=== PATIENT | male | born 1945 | race Caucasian/White ===

== ENCOUNTER → 2016-05-03 | Outpatient (CLI) | payer MEDICARE ==
[2016-04-24 08:58] VITALS: BP 147/77
[~2016-05-03] MED LIST: CYAN500T PO; GLIM2TAB2 PO; HYDR12.53 PO; METF500T4 PO; MULT-404 PO; levothyroxine PO; lisinopril PO; omeprazole PO
== END | disposition home or self-care (01) ==
LOC: PMGWOUND 07:49
PROVIDERS: ATTEND Emergency Medicine Undersea and Hyperbaric Medicine
DX: I87.311 Chronic venous hypertension (idiopathic) with ulcer of right lower extremity (principal); E11.622 Type 2 diabetes mellitus with other skin ulcer; L97.111 Non-pressure chronic ulcer of right thigh limited to breakdown of skin; L97.212 Non-pressure chronic ulcer of right calf with fat layer exposed; E03.9 Hypothyroidism, unspecified; Z87.891 Personal history of nicotine dependence
CPT/HCPCS: 15271; Q4101

== ENCOUNTER → 2016-05-08 | Outpatient (CLI) | payer MEDICARE ==
[2016-04-24 08:58] VITALS: BP 147/77
== END | disposition home or self-care (01) ==
LOC: PMGWOUND 07:57
PROVIDERS: ATTEND Emergency Medicine Undersea and Hyperbaric Medicine
DX: I87.311 Chronic venous hypertension (idiopathic) with ulcer of right lower extremity (principal); E11.622 Type 2 diabetes mellitus with other skin ulcer; L97.211 Non-pressure chronic ulcer of right calf limited to breakdown of skin; E03.9 Hypothyroidism, unspecified; Z87.891 Personal history of nicotine dependence
CPT/HCPCS: 11042

== ENCOUNTER → 2016-05-15 | Outpatient (CLI) | payer MEDICARE ==
[2016-04-24 08:58] VITALS: BP 147/77
== END | disposition home or self-care (01) ==
LOC: PMGWOUND 07:59
PROVIDERS: ATTEND Emergency Medicine Undersea and Hyperbaric Medicine
DX: I87.311 Chronic venous hypertension (idiopathic) with ulcer of right lower extremity (principal); E11.622 Type 2 diabetes mellitus with other skin ulcer; L97.212 Non-pressure chronic ulcer of right calf with fat layer exposed; E03.9 Hypothyroidism, unspecified; Z87.891 Personal history of nicotine dependence
CPT/HCPCS: 15271; Q4101

== ENCOUNTER → 2016-05-22 | Outpatient (CLI) | payer MEDICARE ==
[2016-04-24 08:58] VITALS: BP 147/77
== END | disposition home or self-care (01) ==
LOC: PMGWOUND 07:50
PROVIDERS: ATTEND Emergency Medicine Undersea and Hyperbaric Medicine
DX: I87.311 Chronic venous hypertension (idiopathic) with ulcer of right lower extremity (principal); E11.622 Type 2 diabetes mellitus with other skin ulcer; L97.212 Non-pressure chronic ulcer of right calf with fat layer exposed; I11.9 Hypertensive heart disease without heart failure; E03.9 Hypothyroidism, unspecified; Z87.891 Personal history of nicotine dependence
CPT/HCPCS: 97597

== ENCOUNTER → 2016-05-29 | Outpatient (CLI) | payer MEDICARE ==
[2016-04-24 08:58] VITALS: BP 147/77
== END | disposition home or self-care (01) ==
LOC: PMGWOUND 07:57
PROVIDERS: ATTEND Emergency Medicine Undersea and Hyperbaric Medicine
DX: I87.311 Chronic venous hypertension (idiopathic) with ulcer of right lower extremity (principal); E11.622 Type 2 diabetes mellitus with other skin ulcer; L97.212 Non-pressure chronic ulcer of right calf with fat layer exposed; Z87.891 Personal history of nicotine dependence; I11.9 Hypertensive heart disease without heart failure; E03.9 Hypothyroidism, unspecified
CPT/HCPCS: 11042

== ENCOUNTER → 2016-05-30 | Outpatient (CLI) | payer MEDICARE ==
[2016-04-24 08:58] VITALS: BP 147/77
--- NOTE | 2016-05-30 16:25 | RAD ---
Right lower extremity arterial ultrasound, 05/30/2016: History: Nonhealing right leg wound There are mild scattered atherosclerotic plaques. The common femoral, superficial femoral and popliteal arteries demonstrate good triphasic Doppler waveforms. No significant focal velocity acceleration is seen in these vessels to suggest high-grade stenosis. Patent peroneal and anterior tibial arteries are present in the right lower leg demonstrating triphasic Doppler waveforms. The posterior tibial Doppler waveforms in the lower leg are monophasic. The right dorsalis pedis artery demonstrates a good triphasic Doppler waveform. A resting right FAMILIA measurement was performed performed, yielding a normal value of 1.3. IMPRESSION: 1. Mild scattered atherosclerotic plaquing with out evidence of significant femoral-popliteal stenosis. 2. Minimal degradation of the posterior tibial Doppler waveforms in the right lower leg. 3. Normal right resting FAMILIA measurement of 1.3.
== END | disposition home or self-care (01) ==
LOC: US 15:29
PROVIDERS: ATTEND Emergency Medicine Undersea and Hyperbaric Medicine
DX: S81.801A Unspecified open wound, right lower leg, initial encounter (principal); I70.201 Unspecified atherosclerosis of native arteries of extremities, right leg
CPT/HCPCS: 93922; 93926

== ENCOUNTER → 2016-06-05 | Outpatient (CLI) | payer MEDICARE ==
[2016-04-24 08:58] VITALS: BP 147/77
--- NOTE | 2016-06-06 13:41 | PATHOLOGY ---
PATHOLOGY REPORT * * * * * * * * FINAL DIAGNOSIS: Skin, right lower anterior leg shave biopsy: - Ulcer consistent with stasis ulcer. COMMENT: Sections of the right lower anterior leg shave biopsy reveal skin showing ulceration. The base of the ulcer shows granulation tissue, mild acute and chronic inflammation, and hemosiderin laden macrophages. The overlying epidermis is focally thin and atrophic. The findings are consistent with a stasis ulcer. There is no evidence of malignancy. (JPM:mgopal; d/t: 06/06/16) REPORT ELECTRONICALLY SIGNED BY: Mendez Chambers M.D. DATE/TIME: 06/06/2016 13:41 * * * * * * * * GROSS PATHOLOGY: Received in formalin labeled "Andrew Arellano," and additionally labeled on the requisition as, "R lower anterior leg wound". Received is a shave biopsy measuring 0.9 x 0.7 x 0.1 cm in greatest dimensions. The epidermal surface is red-brown and granular in appearance. The margin is inked, and the specimen is trisected and entirely submitted in cassette A1. (CAA; 06/05/2016) INITIAL CPT CODE(S): A; 00231 Professional services [place] [address] Technical services performed by [facility] at [address] [place] [address] [address] [address]. 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
== END | disposition home or self-care (01) ==
LOC: PMGWOUND 07:59
PROVIDERS: ATTEND Emergency Medicine Undersea and Hyperbaric Medicine
DX: I87.311 Chronic venous hypertension (idiopathic) with ulcer of right lower extremity (principal); E11.622 Type 2 diabetes mellitus with other skin ulcer; L97.212 Non-pressure chronic ulcer of right calf with fat layer exposed; I11.9 Hypertensive heart disease without heart failure; E03.9 Hypothyroidism, unspecified; Z87.891 Personal history of nicotine dependence
CPT/HCPCS: 11100

== ENCOUNTER → 2016-06-12 | Outpatient (CLI) | payer MEDICARE ==
[2016-04-24 08:58] VITALS: BP 147/77
== END | disposition home or self-care (01) ==
LOC: PMGWOUND 08:09
PROVIDERS: ATTEND Emergency Medicine Undersea and Hyperbaric Medicine
DX: I87.311 Chronic venous hypertension (idiopathic) with ulcer of right lower extremity (principal); E11.622 Type 2 diabetes mellitus with other skin ulcer; L97.212 Non-pressure chronic ulcer of right calf with fat layer exposed; I11.9 Hypertensive heart disease without heart failure; E03.9 Hypothyroidism, unspecified; Z87.891 Personal history of nicotine dependence
CPT/HCPCS: 87071; 87075; 87205; 99214

== ENCOUNTER → 2016-06-19 | Outpatient (CLI) | payer MEDICARE ==
[2016-04-24 08:58] VITALS: BP 147/77
== END | disposition home or self-care (01) ==
LOC: PMGWOUND 08:05
PROVIDERS: ATTEND Emergency Medicine Undersea and Hyperbaric Medicine
DX: I87.311 Chronic venous hypertension (idiopathic) with ulcer of right lower extremity (principal); E11.622 Type 2 diabetes mellitus with other skin ulcer; L97.211 Non-pressure chronic ulcer of right calf limited to breakdown of skin; E03.9 Hypothyroidism, unspecified; I11.0 Hypertensive heart disease with heart failure; I50.9 Heart failure, unspecified; Z87.891 Personal history of nicotine dependence; Z72.0 Tobacco use
CPT/HCPCS: 29581

== ENCOUNTER → 2016-06-22 | Outpatient (CLI) | payer MEDICARE ==
[2016-04-24 08:58] VITALS: BP 147/77
== END | disposition home or self-care (01) ==
LOC: PMGWOUND 11:42
PROVIDERS: ATTEND Preventive Medicine Undersea and Hyperbaric Medicine
DX: I87.311 Chronic venous hypertension (idiopathic) with ulcer of right lower extremity (principal); E11.622 Type 2 diabetes mellitus with other skin ulcer; L97.211 Non-pressure chronic ulcer of right calf limited to breakdown of skin; E03.9 Hypothyroidism, unspecified; I50.9 Heart failure, unspecified; I11.0 Hypertensive heart disease with heart failure; Z87.891 Personal history of nicotine dependence; Z72.0 Tobacco use
CPT/HCPCS: 29581

== ENCOUNTER → 2016-06-28 | Outpatient (CLI) | payer MEDICARE ==
[2016-04-24 08:58] VITALS: BP 147/77
== END | disposition home or self-care (01) ==
LOC: PMGWOUND 10:01
PROVIDERS: ATTEND Emergency Medicine Undersea and Hyperbaric Medicine
DX: I87.311 Chronic venous hypertension (idiopathic) with ulcer of right lower extremity (principal); L97.212 Non-pressure chronic ulcer of right calf with fat layer exposed; E11.622 Type 2 diabetes mellitus with other skin ulcer; E03.9 Hypothyroidism, unspecified; I11.0 Hypertensive heart disease with heart failure; I50.9 Heart failure, unspecified; Z87.891 Personal history of nicotine dependence
CPT/HCPCS: 99214

== ENCOUNTER → 2016-07-05 | Outpatient (CLI) | payer MEDICARE ==
[2016-04-24 08:58] VITALS: BP 147/77
== END | disposition home or self-care (01) ==
LOC: PMGWOUND 09:37
PROVIDERS: ATTEND Emergency Medicine Undersea and Hyperbaric Medicine
DX: I87.311 Chronic venous hypertension (idiopathic) with ulcer of right lower extremity (principal); E11.622 Type 2 diabetes mellitus with other skin ulcer; L97.212 Non-pressure chronic ulcer of right calf with fat layer exposed; S51.812D Laceration without foreign body of left forearm, subsequent encounter; I11.0 Hypertensive heart disease with heart failure; I50.9 Heart failure, unspecified; E03.9 Hypothyroidism, unspecified; Z87.891 Personal history of nicotine dependence; X58.XXXD Exposure to other specified factors, subsequent encounter
CPT/HCPCS: 97597

== ENCOUNTER → 2016-07-19 | Outpatient (CLI) | payer MEDICARE ==
[2016-04-24 08:58] VITALS: BP 147/77
== END | disposition home or self-care (01) ==
LOC: PMGWOUND 08:27
PROVIDERS: ATTEND Emergency Medicine Undersea and Hyperbaric Medicine
DX: I87.311 Chronic venous hypertension (idiopathic) with ulcer of right lower extremity (principal); E11.622 Type 2 diabetes mellitus with other skin ulcer; L97.212 Non-pressure chronic ulcer of right calf with fat layer exposed; S51.812D Laceration without foreign body of left forearm, subsequent encounter; I11.0 Hypertensive heart disease with heart failure; I50.9 Heart failure, unspecified; E03.9 Hypothyroidism, unspecified; Z87.891 Personal history of nicotine dependence; X58.XXXD Exposure to other specified factors, subsequent encounter
CPT/HCPCS: 97597

== ENCOUNTER → 2016-08-02 | Outpatient (CLI) | payer MEDICARE ==
[2016-04-24 08:58] VITALS: BP 147/77
== END | disposition home or self-care (01) ==
LOC: PMGWOUND 08:08
PROVIDERS: ATTEND Emergency Medicine Undersea and Hyperbaric Medicine
DX: I87.311 Chronic venous hypertension (idiopathic) with ulcer of right lower extremity (principal); E11.622 Type 2 diabetes mellitus with other skin ulcer; L97.212 Non-pressure chronic ulcer of right calf with fat layer exposed; I11.0 Hypertensive heart disease with heart failure; I50.9 Heart failure, unspecified; E03.9 Hypothyroidism, unspecified; Z87.891 Personal history of nicotine dependence
CPT/HCPCS: 99215

== ENCOUNTER → 2016-08-16 | Outpatient (CLI) | payer MEDICARE ==
[2016-04-24 08:58] VITALS: BP 147/77
== END | disposition home or self-care (01) ==
LOC: PMGWOUND 08:29
PROVIDERS: ATTEND Emergency Medicine Undersea and Hyperbaric Medicine
DX: I87.311 Chronic venous hypertension (idiopathic) with ulcer of right lower extremity (principal); E11.622 Type 2 diabetes mellitus with other skin ulcer; L97.212 Non-pressure chronic ulcer of right calf with fat layer exposed; E03.9 Hypothyroidism, unspecified; I11.0 Hypertensive heart disease with heart failure; I50.9 Heart failure, unspecified; Z87.891 Personal history of nicotine dependence
CPT/HCPCS: 99214

== ENCOUNTER → 2016-08-30 | Outpatient (CLI) | payer MEDICARE ==
[2016-04-24 08:58] VITALS: BP 147/77
== END | disposition home or self-care (01) ==
LOC: PMGWOUND 08:37
PROVIDERS: ATTEND Emergency Medicine Undersea and Hyperbaric Medicine
DX: I87.311 Chronic venous hypertension (idiopathic) with ulcer of right lower extremity (principal); E11.622 Type 2 diabetes mellitus with other skin ulcer; L97.212 Non-pressure chronic ulcer of right calf with fat layer exposed; E03.9 Hypothyroidism, unspecified; I11.0 Hypertensive heart disease with heart failure; I50.9 Heart failure, unspecified; Z87.891 Personal history of nicotine dependence
CPT/HCPCS: 99213

== ENCOUNTER → 2017-05-09 | Outpatient (CLI) | payer MEDICARE | END | disposition home or self-care (01) | LOC: PMGWOUND 11:57 | DX: I87.311 Chronic venous hypertension (idiopathic) with ulcer of right lower extremity (principal); E11.622 Type 2 diabetes mellitus with other skin ulcer; L97.211 Non-pressure chronic ulcer of right calf limited to breakdown of skin; E03.9 Hypothyroidism, unspecified; I11.0 Hypertensive heart disease with heart failure; I50.9 Heart failure, unspecified; Z87.891 Personal history of nicotine dependence | CPT/HCPCS: 99215 ==

== ENCOUNTER → 2017-05-16 | Outpatient (CLI) | payer MEDICARE | END | disposition home or self-care (01) | LOC: PMGWOUND 08:27 | DX: I87.311 Chronic venous hypertension (idiopathic) with ulcer of right lower extremity (principal); E11.622 Type 2 diabetes mellitus with other skin ulcer; L97.211 Non-pressure chronic ulcer of right calf limited to breakdown of skin; E03.9 Hypothyroidism, unspecified; I11.0 Hypertensive heart disease with heart failure; I50.9 Heart failure, unspecified; Z87.891 Personal history of nicotine dependence | CPT/HCPCS: 99214 ==

== ENCOUNTER → 2017-05-23 | Outpatient (CLI) | payer MEDICARE | END | disposition home or self-care (01) | LOC: PMGWOUND 13:27 | DX: I87.311 Chronic venous hypertension (idiopathic) with ulcer of right lower extremity (principal); E11.622 Type 2 diabetes mellitus with other skin ulcer; L97.211 Non-pressure chronic ulcer of right calf limited to breakdown of skin; E03.9 Hypothyroidism, unspecified; I11.0 Hypertensive heart disease with heart failure; I50.9 Heart failure, unspecified; Z87.891 Personal history of nicotine dependence | CPT/HCPCS: 11042 ==

== ENCOUNTER → 2017-05-30 | Outpatient (CLI) | payer MEDICARE | END | disposition home or self-care (01) | LOC: PMGWOUND 11:10 | DX: I87.311 Chronic venous hypertension (idiopathic) with ulcer of right lower extremity (principal); E11.622 Type 2 diabetes mellitus with other skin ulcer; L97.211 Non-pressure chronic ulcer of right calf limited to breakdown of skin; E03.9 Hypothyroidism, unspecified; I11.0 Hypertensive heart disease with heart failure; I50.9 Heart failure, unspecified; Z87.891 Personal history of nicotine dependence | CPT/HCPCS: 97597 ==

== ENCOUNTER → 2017-06-06 | Outpatient (CLI) | payer MEDICARE | END | disposition home or self-care (01) | LOC: PMGWOUND 11:43 | DX: I87.311 Chronic venous hypertension (idiopathic) with ulcer of right lower extremity (principal); E11.622 Type 2 diabetes mellitus with other skin ulcer; L97.211 Non-pressure chronic ulcer of right calf limited to breakdown of skin; E03.9 Hypothyroidism, unspecified; I11.0 Hypertensive heart disease with heart failure; I50.9 Heart failure, unspecified; Z87.891 Personal history of nicotine dependence | CPT/HCPCS: 97597 ==

== ENCOUNTER → 2017-06-13 | Outpatient (CLI) | payer MEDICARE | END | disposition home or self-care (01) | LOC: PMGWOUND 09:25 | DX: I87.311 Chronic venous hypertension (idiopathic) with ulcer of right lower extremity (principal); E11.622 Type 2 diabetes mellitus with other skin ulcer; L97.211 Non-pressure chronic ulcer of right calf limited to breakdown of skin; E03.9 Hypothyroidism, unspecified; I11.0 Hypertensive heart disease with heart failure; I50.9 Heart failure, unspecified; Z87.891 Personal history of nicotine dependence | CPT/HCPCS: 97597 ==

== ENCOUNTER → 2017-06-20 | Outpatient (CLI) | payer MEDICARE | END | disposition home or self-care (01) | LOC: PMGWNDHBO 13:24 | DX: I87.311 Chronic venous hypertension (idiopathic) with ulcer of right lower extremity (principal); L97.212 Non-pressure chronic ulcer of right calf with fat layer exposed; I11.0 Hypertensive heart disease with heart failure; I50.9 Heart failure, unspecified; E03.9 Hypothyroidism, unspecified; Z87.891 Personal history of nicotine dependence | CPT/HCPCS: 97597 ==

== ENCOUNTER → 2017-06-27 | Outpatient (CLI) | payer MEDICARE | END | disposition home or self-care (01) | LOC: PMGWOUND 08:04 | DX: I87.311 Chronic venous hypertension (idiopathic) with ulcer of right lower extremity (principal); E11.622 Type 2 diabetes mellitus with other skin ulcer; L97.211 Non-pressure chronic ulcer of right calf limited to breakdown of skin; E03.9 Hypothyroidism, unspecified; I11.0 Hypertensive heart disease with heart failure; I50.9 Heart failure, unspecified; Z87.891 Personal history of nicotine dependence | CPT/HCPCS: 15271; 97597; Q4101 ==

== ENCOUNTER → 2017-07-04 | Outpatient (CLI) | payer MEDICARE | END | disposition home or self-care (01) | LOC: PMGWOUND 07:55 | DX: I87.311 Chronic venous hypertension (idiopathic) with ulcer of right lower extremity (principal); E11.622 Type 2 diabetes mellitus with other skin ulcer; L97.211 Non-pressure chronic ulcer of right calf limited to breakdown of skin; E03.9 Hypothyroidism, unspecified; I11.0 Hypertensive heart disease with heart failure; I50.9 Heart failure, unspecified; Z87.891 Personal history of nicotine dependence | CPT/HCPCS: 97597 ==

== ENCOUNTER → 2017-07-11 | Outpatient (CLI) | payer MEDICARE | END | disposition home or self-care (01) | LOC: PMGWOUND 08:05 | DX: I87.311 Chronic venous hypertension (idiopathic) with ulcer of right lower extremity (principal); L97.211 Non-pressure chronic ulcer of right calf limited to breakdown of skin; E11.622 Type 2 diabetes mellitus with other skin ulcer; I11.0 Hypertensive heart disease with heart failure; I50.9 Heart failure, unspecified; E03.9 Hypothyroidism, unspecified; Z87.891 Personal history of nicotine dependence | CPT/HCPCS: 99214 ==

== ENCOUNTER → 2017-07-25 | Outpatient (CLI) | payer MEDICARE | END | disposition home or self-care (01) | LOC: PMGWOUND 08:05 | DX: I87.311 Chronic venous hypertension (idiopathic) with ulcer of right lower extremity (principal); E11.622 Type 2 diabetes mellitus with other skin ulcer; L97.211 Non-pressure chronic ulcer of right calf limited to breakdown of skin; I11.0 Hypertensive heart disease with heart failure; I50.9 Heart failure, unspecified; E03.9 Hypothyroidism, unspecified; Z87.891 Personal history of nicotine dependence | CPT/HCPCS: 99214 ==

== ENCOUNTER → 2017-08-08 | Outpatient (CLI) | payer MEDICARE | END | disposition home or self-care (01) | LOC: PMGWOUND 08:06 | DX: I87.311 Chronic venous hypertension (idiopathic) with ulcer of right lower extremity (principal); E11.622 Type 2 diabetes mellitus with other skin ulcer; L97.211 Non-pressure chronic ulcer of right calf limited to breakdown of skin; I11.0 Hypertensive heart disease with heart failure; I50.9 Heart failure, unspecified; E03.9 Hypothyroidism, unspecified; Z87.891 Personal history of nicotine dependence | CPT/HCPCS: 99214 ==

== ENCOUNTER → 2017-08-29 | Outpatient (CLI) | payer MEDICARE | END | disposition home or self-care (01) | LOC: PMGWOUND 08:11 | DX: I87.311 Chronic venous hypertension (idiopathic) with ulcer of right lower extremity (principal); E11.622 Type 2 diabetes mellitus with other skin ulcer; L97.211 Non-pressure chronic ulcer of right calf limited to breakdown of skin; I11.0 Hypertensive heart disease with heart failure; I50.9 Heart failure, unspecified; E03.9 Hypothyroidism, unspecified; Z87.891 Personal history of nicotine dependence | CPT/HCPCS: 99214 ==

== ENCOUNTER → 2017-09-13 | Outpatient (CLI) | payer MEDICARE | END | disposition home or self-care (01) | LOC: PMGWOUND 07:56 | DX: I87.311 Chronic venous hypertension (idiopathic) with ulcer of right lower extremity (principal); E11.622 Type 2 diabetes mellitus with other skin ulcer; L97.211 Non-pressure chronic ulcer of right calf limited to breakdown of skin; I11.0 Hypertensive heart disease with heart failure; I50.9 Heart failure, unspecified; E03.9 Hypothyroidism, unspecified; Z87.891 Personal history of nicotine dependence | CPT/HCPCS: 97597 ==

== ENCOUNTER → 2017-09-26 | Outpatient (CLI) | payer MEDICARE ==
[2016-04-24 08:58] VITALS: BP 147/77
[~2017-09-26] MED LIST changes: -METF500T4 PO; +METF500T5 PO
== END | disposition home or self-care (01) ==
LOC: PMGWOUND 08:04
PROVIDERS: ATTEND Emergency Medicine Undersea and Hyperbaric Medicine
DX: I87.311 Chronic venous hypertension (idiopathic) with ulcer of right lower extremity (principal); E11.622 Type 2 diabetes mellitus with other skin ulcer; L97.211 Non-pressure chronic ulcer of right calf limited to breakdown of skin; I11.0 Hypertensive heart disease with heart failure; I50.9 Heart failure, unspecified; E03.9 Hypothyroidism, unspecified; Z87.891 Personal history of nicotine dependence
CPT/HCPCS: 99214; G0463

== ENCOUNTER 2017-10-11 19:29 | Emergency (ER) | payer MEDICARE ==
[~2017-10-11] VITALS: Ht 180.3 cm; Wt 77.1 kg
[2017-10-11 19:40] VITALS: BP 166/79
--- NOTE | 2017-10-11 20:07 | PHYS DOC ---
Past Medical History Past Medical History: Diabetes-Type II, GERD, Hypertension, Hypothyroid, Pancreatitis Past Surgical History: Other Additional Past Surgical Histo: abdominal sx for pancreatitis, abd hernia repair Alcohol Use: None Drug Use: None Adult General Chief Complaint Chief Complaint: KNEE INJURY HPI HPI 72-year-old male presents to ER via POV with complaints of mechanical fall when he missed the last step walking out of his house causing him to fall forward onto his left knee. Patient reports he has abrasion to left knee and has had increased pain when walking. Patient denies striking his head or having any head , neck, or back pain. Pt reports he was walking into the house and went into the bathroom when his left knee buckled causing him to fall into the window frame which caused a left forearm skin tear. Pt is uncertain of last tetanus update. Pt at rest has no pain in left knee- he reports pain is when he walks. 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 Review of Systems Review of Systems Constitutional: Denies fever or chills [] Eyes: Denies change in visual acuity, redness, or eye pain [] HENT: Denies nasal congestion or sore throat [] Respiratory: Denies cough or shortness of breath [] Cardiovascular: No additional information not addressed in HPI [] GI: Denies abdominal pain, nausea, vomiting, bloody stools or diarrhea [] : Denies dysuria or hematuria [] Musculoskeletal: Denies back pain or joint pain [] Integument: Denies rash or skin lesions [] Neurologic: Denies headache, focal weakness or sensory changes [] Endocrine: Denies polyuria or polydipsia [] All other systems were reviewed and found to be within normal limits, except as documented in this note. Current Medications Current Medications Current Medications Medications (Trade) Dose Ordered Sig/Nicole Start Time Stop Time Status Last Admin Dose Admin Ibuprofen (Motrin) 600 mg 1X ONCE 10/11/17 20:15 10/11/17 20:16 DC 10/11/17 20:46 600 MG Allergies Allergies Allergies Coded Allergies Type Severity Reaction Last Updated Verified No Known Drug Allergies 12/02/13 No Physical Exam Physical Exam Constitutional: Well developed, well nourished, no acute distress, non-toxic appearance. [] HENT: Normocephalic, atraumatic, bilateral external ears normal, oropharynx moist, no oral exudates, nose normal. [] Eyes: PERRLA, EOMI, conjunctiva normal, no discharge. [] Neck: Normal range of motion, no tenderness, supple, no stridor. [] Cardiovascular:Heart rate regular rhythm, no murmur [] Lungs & Thorax: Bilateral breath sounds clear to auscultation [] Abdomen: Bowel sounds normal, soft, no tenderness, no masses, no pulsatile masses. [] Skin: Warm, dry, no erythema, no rash. [] Back: No tenderness, no CVA tenderness. [] Extremities: No tenderness, no cyanosis, no clubbing, ROM intact, no edema. [] Neurologic: Alert and oriented X 3, normal motor function, normal sensory function, no focal deficits noted. [] Psychologic: Affect normal, judgement normal, mood normal. [] Current Patient Data Vital Signs Vital Signs Date Time Temp Pulse Resp B/P (MAP) Pulse Ox O2 Delivery O2 Flow Rate FiO2 10/11/17 19:40 99.1 76 16 166/79 (108) Room Air 99.1 EKG EKG [] Radiology/Procedures Radiology/Procedures [] Course & Med Decision Making Course & Med Decision Making Pertinent Imaging studies reviewed. (See chart for details) 2106: Discussed xray results with pt and his with no acute findings. Discussed plans for juan c wrap and use of walker at home for stability. Pt to f/u with his orthopedic doctor for further eval/care if pain/sxs persist. Dragon Disclaimer Dragon Disclaimer This electronic medical record was generated, in whole or in part, using a voice recognition dictation system. Departure Departure Impression: Primary Impression: Left knee injury Additional Impressions: Skin tear of left upper extremity Fall Disposition: HOME, SELF-CARE Condition: STABLE Referrals: WERNER WANG MD (PCP) Patient Instructions: Abrasions, Fall Prevention and Home Safety, Knee Sprain, Skin Tear Care Additional Instructions: Use walker for stability while walking while your knee is hurting. Tylenol and/or ibuprofen as needed for pain as directed on container. Ice pack to knee every 3-4 hours for 20-30 min. at a time as needed. If symptoms worsen or persist you should follow-up with your orthopedic doctor for re-evaluation and further care. Monitor abrasion and skin tear for signs of infection- with concerns follow-up with your primary doctor. Problem Qualifiers SHARRON AGUSTIN APRN Oct 11, 2017 20:07
[2017-10-11] MEDS ORDERED: IBUPROFEN 600 MG TABLET. PO ONE (20:15)
--- NOTE | 2017-10-11 20:51 | RAD ---
Indication:FALL X1 DAY AGO. PAIN TO MEDIAL SIDE OF LEFT KNEE TECHNIQUE: 3 views of the left knee COMPARISON:None FINDINGS: No acute fracture or dislocation. Tricompartmental mild osteoarthritis. Trace suprapatellar effusion. Vascular calcifications suggesting peripheral vascular disease. IMPRESSION: No acute fracture or dislocation. Electronically signed by: Linwood Montoya DO (10/11/2017 8:47 PM) [facility]
== END 2017-10-11 21:34 | disposition home or self-care (01) ==
LOC: ER 19:29
DX: S51.812A Laceration without foreign body of left forearm, initial encounter (principal); S80.212A Abrasion, left knee, initial encounter; E11.9 Type 2 diabetes mellitus without complications; K21.9 Gastro-esophageal reflux disease without esophagitis; I10 Essential (primary) hypertension; E03.9 Hypothyroidism, unspecified; W10.8XXA Fall (on) (from) other stairs and steps, initial encounter; W18.02XA Striking against glass with subsequent fall, initial encounter; Y93.01 Activity, walking, marching and hiking; Y92.091 Bathroom in other non-institutional residence as the place of occurrence of the external cause; Y92.098 Other place in other non-institutional residence as the place of occurrence of the external cause; Y99.8 Other external cause status
CPT/HCPCS: 73562; 99284

== ENCOUNTER → 2018-10-06 | Outpatient (CLI) | payer MEDICARE ==
[~2018-10-06] MED LIST changes: -CYAN500T PO; +CYAN500T2 PO; -HYDR12.53 PO; +HYDR12.575 PO; +METF500T16 PO; -METF500T5 PO
--- NOTE | 2018-10-06 14:01 | CARD ---
MR#: [id number] Date of Study: 10/06/2018 Ordering Physician: WERNER WANG, Referring Physician: WERNER WANG, Tech: Caroline Hernandez APPROVED REPORT EXAM: Two-dimensional and M-mode echocardiogram with Doppler and color Doppler. Other Information Quality : AverageHR: 84bpm INDICATION Atrial Fibrillation RISK FACTORS Hypertension Diabetes 2D DIMENSIONS RVDd3.1 (2.9-3.5cm)Left Atrium(2D)4.2 (1.6-4.0cm) IVSd0.9 (0.7-1.1cm)Aortic Root(2D)3.7 (2.0-3.7cm) LVDd5.7 (3.9-5.9cm)LVOT Diameter2.2 (1.8-2.4cm) PWd1.1 (0.7-1.1cm)LVDs3.5 (2.5-4.0cm) FS (%) 37.8 %SV106.9 ml Aortic Valve AoV Peak Pablo.102.3cm/sAoV VTI18.1cm AO Peak GR.4.2mmHgLVOT Peak Pablo.69.2cm/s LVOT VTI 13.78cmAO Mean GR.2mmHg AMANDA (VMAX)1.45tn3TTL (VTI)2.81cm2 Mitral Valve MV E Twnuowsr95.7cm/sMV DECEL NXWA644ce MV A Shtpolln31.4cm/sMV KLR22fl E/A Ratio3.2MVA (PHT)4.14cm2 TDI E/Lateral E'9.0E/Medial E'9.0 Pulmonary Valve PV Peak Qtwztbge00.7cm/sPV Peak Grad.2mmHg Tricuspid Valve TR P. Lrxohsku162ot/sRAP PUWHPRBI4zwTf TR Peak Gr.19wyOsAIPW40lsWf Pulmonary Vein S1 Ayqlawtu73.2cm/sD2 Iitnfcpl44.3cm/s LEFT VENTRICLE The left ventricle is normal size. There is borderline concentric left ventricular hypertrophy. The l eft ventricular systolic function is normal and the ejection fraction is within normal range. The Eje ction Fraction is 55-60%. There is normal LV segmental wall motion. Diastology indeterminate due to a trial fibrillation. RIGHT VENTRICLE The right ventricle is normal size. There is normal right ventricular wall thickness. The right ventr icular systolic function is normal. ATRIA The left atrium is mildly dilated. The right atrium size is normal. The interatrial septum is intact with no evidence for an atrial septal defect or patent foramen ovale as noted on 2-D or Doppler imagi ng. AORTIC VALVE The aortic valve is thickened but opens well. Doppler and Color Flow revealed no significant aortic r egurgitation. There is no significant aortic valvular stenosis. MITRAL VALVE The mitral valve is normal in structure and function. There is no evidence of mitral valve prolapse. There is no mitral valve stenosis. Doppler and Color-flow revealed mild mitral regurgitation. TRICUSPID VALVE The tricuspid valve is normal in structure and function. Doppler and Color Flow revealed mild tricusp id regurgitation with an estimated PAP of 42 mmHg. There is no tricuspid valve prolapse or vegetation . There is no tricuspid valve stenosis. PULMONIC VALVE The pulmonic valve is not well visualized. Doppler and Color Flow revealed no pulmonic valvular regur gitation. GREAT VESSELS The aortic root is normal in size. The IVC is normal in size and collapses >50% with inspiration. PERICARDIAL EFFUSION There is no evidence of significant pericardial effusion. Critical Notification Critical Value: No <Conclusion> The left ventricle is normal size. The left ventricular systolic function is normal and the ejection fraction is within normal range. The Ejection Fraction is 55-60%. There is borderline concentric left ventricular hypertrophy. There is no significant aortic valvular stenosis. Doppler and Color Flow revealed no significant aortic regurgitation. Doppler and Color-flow revealed mild mitral regurgitation. Doppler and Color Flow revealed mild tricuspid regurgitation with an estimated PAP of 42 mmHg. Signed by : Rolo Jefferson MD Electronically Approved : 10/06/2018 14:00:25
== END | disposition home or self-care (01) ==
LOC: ECHO 12:45
PROVIDERS: ATTEND Family Medicine
DX: I08.1 Rheumatic disorders of both mitral and tricuspid valves (principal); I48.91 Unspecified atrial fibrillation; I10 Essential (primary) hypertension; E78.5 Hyperlipidemia, unspecified
CPT/HCPCS: 93306

== ENCOUNTER → 2018-12-08 | Outpatient (CLI) | payer MEDICARE ==
[~2018-12-08] MED LIST changes: +CELE200C PO; +CHOL10003 PO; -CYAN500T2 PO; +CYAN500T52 PO; +FERR325T14 PO; -GLIM2TAB2 PO; +GLIM2TAB3 PO; +LEVO125T5 PO; +LOSA-73 PO; +MELA3TAB56 PO; +OMEP40CA45 PO; +OXYC1TAB15 PO; +RIVA20TA2 PO
[2018-12-08 09:26] LABS: BASO % 1 % (0-3); EOS # 0.1 x10^3/uL (0.0-0.7); EOS % 2 % (0-3); HEMATOCRIT 37.5 % (39.0-53.0); LYMPH # 0.7 x10^3/uL (1.0-4.8); LYMPH % 19 % (24-48); MEAN CORPUSCULAR HEMOGLOBIN 37 pg (25-35); MEAN CORPUSCULAR HGB CONC 35 g/dL (31-37); MEAN CORPUSCULAR VOLUME 108 fL (79-100); MONO # 0.2 x10^3/uL (0.0-1.1); MONO % 6 % (0-9); NEUT # 2.7 x10^3/uL (1.8-7.7); NEUT % 73 % (31-73); PLATELET COUNT 163 x10^3/uL (140-400); RED BLOOD COUNT 3.48 x10^6/uL (4.30-5.70); RED CELL DISTRIBUTION WIDTH 14.3 % (11.5-14.5); WHITE BLOOD COUNT 3.7 x10^3/uL (4.0-11.0)
[2018-12-08 09:40] LABS: PROTHROMBIN TIME PATIENT 19.6 SEC (11.7-14.0)
[2018-12-08 09:43] LABS: CALCIUM 9.2 mg/dL (8.5-10.1); CREATININE 1.1 mg/dL (0.7-1.3); GFR 65.6; POTASSIUM 4.1 mmol/L (3.5-5.1)
[2018-12-08 11:05] LABS: BILIRUBIN,URINE NEGATIVE (NEG); CLARITY,URINE CLEAR; COLOR,URINE YELLOW; NITRITE,URINE NEGATIVE (NEG); PH,URINE 5.5; PROTEIN,URINE NEGATIVE (NEG-TRACE); UROBILINOGEN,URINE 0.2 mg/dL (0.2 mg/dL)
[2018-12-08 11:13] LABS: BACTERIA,URINE 0 /HPF (0-FEW); RBC,URINE 0 /HPF (0-2); WBC,URINE 0 /HPF (0-4)
--- NOTE | 2018-12-08 13:29 | RAD ---
AP and Lateral Views of the Chest 12/08/2018 8:55 AM Indication: Preoperative. Comparison: None Findings: There is no focal consolidation or infiltrate identified. The cardiomediastinal silhouette is within normal limits. There is no evidence of pneumothorax or pleural effusion. Degenerative changes of the thoracic spine noted. Probable diffuse the idiopathic skeletal hyperostosis noted. Impression: No evidence of acute cardiopulmonary process. Electronically signed by: Simon Becerra MD (12/08/2018 1:26 PM) [id number]
== END | disposition home or self-care (01) ==
LOC: SURGPAT 12:51
PROVIDERS: ATTEND Orthopaedic Surgery
DX: Z01.818 Encounter for other preprocedural examination (principal); M17.11 Unilateral primary osteoarthritis, right knee; I10 Essential (primary) hypertension
CPT/HCPCS: 36415; 71046; 80048; 81001; 82040; 82306; 83036; 85025; 85610; 85651; 85730; 87641

== ENCOUNTER → 2019-01-07 | Outpatient (CLI) | payer MEDICARE ==
[2019-01-01 12:45] VITALS: BP 112/60
[~2019-01-07] MED LIST changes: +METO25TA4 PO
[2019-01-07 13:04] LABS: BASO % 0 % (0-3); EOS % 1 % (0-3); HEMATOCRIT 21.6 % (39.0-53.0); HEMOGLOBIN 7.4 g/dL (13.0-17.5); LYMPH # 0.6 x10^3/uL (1.0-4.8); LYMPH % 17 % (24-48); MEAN CORPUSCULAR HEMOGLOBIN 37 pg (25-35); MEAN CORPUSCULAR HGB CONC 34 g/dL (31-37); MEAN CORPUSCULAR VOLUME 108 fL (79-100); MONO # 0.3 x10^3/uL (0.0-1.1); MONO % 10 % (0-9); NEUT # 2.4 x10^3/uL (1.8-7.7); NEUT % 72 % (31-73); PLATELET COUNT 169 x10^3/uL (140-400); RED BLOOD COUNT 2.01 x10^6/uL (4.30-5.70); RED CELL DISTRIBUTION WIDTH 14.4 % (11.5-14.5); WHITE BLOOD COUNT 3.4 x10^3/uL (4.0-11.0)
[2019-01-07 13:28] LABS: CALCIUM 8.4 mg/dL (8.5-10.1); CREATININE 1.3 mg/dL (0.7-1.3); POTASSIUM 3.5 mmol/L (3.5-5.1)
== END | disposition home or self-care (01) ==
LOC: LAB 12:34
PROVIDERS: ATTEND Physician Assistant
DX: L03.115 Cellulitis of right lower limb (principal); L02.415 Cutaneous abscess of right lower limb; Z96.651 Presence of right artificial knee joint
CPT/HCPCS: 36415; 80048; 85025; 85651; 86141

== ENCOUNTER → 2019-01-12 | Outpatient (CLI) | payer MEDICARE ==
[2019-01-01 12:45] VITALS: BP 112/60
== END ==
LOC: PMGORTHO 08:07
PROVIDERS: ATTEND Orthopaedic Surgery

== ENCOUNTER 2019-01-20 13:21 | Inpatient (IN) | payer MEDICARE ==
[~2019-01-20] VITALS: Ht 172.7 cm; Wt 82.3 kg
[~2019-01-20 13:21] MED LIST changes: +ACETAMINOPHEN 500 MG TABLET PO PRN; +HYDROmorphone 2 MG/ML VIAL IV PRN; +IV RINGERS,LACTATED 1000ML 1,000 ML IV SCH; -METO25TA4 PO; +MORPHINE SULFATE 2 MG/ML VIAL. IV PRN; +MORPHINE SULFATE 5 MG, KETOROLAC 30MG VIAL 30 MG, ROPIVacaine 0.5% PF 60 ML, EPINEPHrin... INT ART ONE; +ONDANSETRON PF 4 MG/2 ML VIAL. IV PRN; +PROCHLORPERAZINE 10 MG/2 ML VIAL. IV PRN; +TRANEXAMIC ACID 1,000 MG in IV NS 50ML -- 1ST BAG INJ ONE; +TRANEXAMIC ACID 1,000 MG in IV NS 50ML -- 2ND BAG INJ ONE; +ceFAZolin 2GM PREMIX 2 GM/50 ML BAG IV ONE; +fentaNYL PF VIAL 100 MCG/2 ML VIAL IV PRN
[2019-01-20 14:50] LABS: BASO % 1 % (0-3); EOS % 1 % (0-3); HEMATOCRIT 23.4 % (39.0-53.0); HEMOGLOBIN 8.1 g/dL (13.0-17.5); LYMPH # 0.7 x10^3/uL (1.0-4.8); LYMPH % 22 % (24-48); MEAN CORPUSCULAR HEMOGLOBIN 37 pg (25-35); MEAN CORPUSCULAR HGB CONC 35 g/dL (31-37); MEAN CORPUSCULAR VOLUME 106 fL (79-100); MONO # 0.3 x10^3/uL (0.0-1.1); MONO % 10 % (0-9); NEUT # 2.1 x10^3/uL (1.8-7.7); NEUT % 65 % (31-73); PLATELET COUNT 262 x10^3/uL (140-400); RED BLOOD COUNT 2.21 x10^6/uL (4.30-5.70); RED CELL DISTRIBUTION WIDTH 16.4 % (11.5-14.5); WHITE BLOOD COUNT 3.3 x10^3/uL (4.0-11.0)
[2019-01-20] MEDS ORDERED: TOBRAMYCIN POWDER 1.2 GM VIAL. ONE (14:53)
[2019-01-20] MEDS ORDERED: VANCOMYCIN 1 GM VIAL. ONE (15:06)
[2019-01-20 15:23] LABS: CALCIUM 8.7 mg/dL (8.5-10.1); CREATININE 1.3 mg/dL (0.7-1.3); POTASSIUM 4.1 mmol/L (3.5-5.1)
[2019-01-20 15:25] LABS: ALBUMIN 2.8 g/dL (3.4-5.0); C-REACTIVE PROTEIN 19.2 mg/L (0-3.3)
[2019-01-20] MEDS ORDERED: INSULIN LISPRO 100 UNIT/ML 3ML VIAL for OP,RR ONLY. SQ PRN (16:30)
[2019-01-20 16:51] LABS: % BANDS 2 % (0-9); % EOS 1 % (0-5); % LYMPHS 21 % (24-48); % METAS 1 % (0-0); % MONOS 6 % (0-10); % SEGS 69 % (35-66); PLT ESTIMATE ADEQUATE (ADEQUATE)
[2019-01-20] MEDS ORDERED: fentaNYL PF VIAL 100 MCG/2 ML VIAL ONE (17:43)
[2019-01-20] MEDS ORDERED: PROPOFOL 20 ML IV ONE (17:43)
[2019-01-20] MEDS ORDERED: ROCURONIUM 50 MG/5 ML VIAL. ONE (17:43)
[2019-01-20] MEDS ORDERED: LIDOCAINE 2% PF 5 ML VIAL. ONE (17:43)
[2019-01-20] MEDS ORDERED: PHENYLEPHRINE in 0.9% NACL PF 1 MG/10 ML SYRINGE. IV ONE (17:51)
[2019-01-20] MEDS ORDERED: GLYCOPYRROLATE 1 MG/5 ML VIAL. ONE (18:43)
[2019-01-20] MEDS ORDERED: ONDANSETRON PF 4 MG/2 ML VIAL. ONE (18:43)
[2019-01-20] MEDS ORDERED: NEOSTIGMINE METHYLSULFATE 5 MG/5 ML SYRINGE. ONE (18:44)
[2019-01-20] MEDS ORDERED: SEVOFLURANE 61 TO 120 MINUTES. IH ONE (18:51)
[2019-01-20] MEDS ORDERED: SEVOFLURANE > 120 MINUTES. IH ONE (19:26)
--- NOTE | 2019-01-20 20:01 | PDOC4 ---
Operative Note Operative Note Date of Procedure: January 20, 2019 Pre-Op Diagnosis: right knee total knee arthroplasty with postoperative acute infection Post-Op Diagnosis: Same Procedure: Right knee irrigation and debridement, and revision of polyethylene (one component) of total knee arthroplasty Surgeon: Leena Cochran MD Fruit Or Nut Grower: Dai COPPOLA Anesthesia: General EBL: 100 mL Specimens Obtained: deep synovial fluid for Gram Stain and cultures including aerobic, anaerobic, fungal, and AFB Complications: none Drains: none Findings: Cloudy synovial fluid Tourniquet: applied but not inflated Implants: Right Size 5-6 9 mm Journey II BCS XLPE articular insert Indications for Procedure: The patient is a 74 year old man who had total knee arthroplasty three weeks ago today. He was seen in the office last week, and Synovasure testing was performed. I saw him in the office yesterday and review those results with him which showed white blood cell count greater than 3000, greater than 90% polymorphonuclear leukocytes, and the Alpha Defensin testing was positive. I suspect there is early postoperative infection of his total knee arthroplasty. We discussed his individual risk factors such as diabetes. The patient and I discussed the risks, benefits and alternatives of further surgery. I recommended irrigation and debridement with polyethylene exchange. We discussed potential need to proceed with complete excision of the total knee arthroplasty including the metal components in the future. Due to the recent onset of infection, the irrigation and debridement with polyethylene exchange, which is a lesser surgery, is likely to be effective and is the standard of care, but is not guaranteed as we discussed. The risks of this surgery include ongoing infection which might require excision of the total knee. Other risks include bleeding, scarring, stiffness, blood clots, or other potential surgical or anesthetic complications. Procedure in Detail: The patient was identified in the preoperative holding area. The correct right lower extremity was marked by me. The patient was taken to the operating room where general anesthesia was used. The patient was positioned supine on the operating table. The intravenous antibodies were held until a specimen was obtained. A timeout procedure was performed. A tourniquet was applied to the right thigh but never inflated. The limb was prepared in sterile fashion with Betadine. Sterile drapes were applied. An impervious stockinette was used. The operating team wore the personal exhaust ventilated hoods. The midline incision was reopened sharply with a scalpel. There is some minor fluid collection and superficial drainage at the superior aspect of the original incision, and I excised the edges of this area. The superficial tissue planes were carefully reflected, and I suspect the origin of the drainage is deep. I reopened the medial parapatellar arthrotomy sharply with a scalpel, cutting through the prior PDS suture, and noted cloudy synovial fluid. This fluid was sent in a specimen cup for the cultures. Antibiotics were now dosed. Copious irrigation with the [place] Interpulse safety net maker was used, and excisional debridement of abnormal synovium was performed with a scalpel, and rongeurs. The previous polyethylene component was removed with a Digna retractor. The posterior joint was examined. There was minimal synovitis here and a synovectomy was performed. The intercondylar notch of the femur was debrided with a rongeurs, curettes, and the [place] Interpulse safety net maker. All three of the remaining components were checked at the implantcementbone interface with a [place] elevator, and there is no evidence of loosening of the components or bone infection. Topical intra-articular Betadine was now used on all of the exposed surfaces within the joint, and then removed with suction, and irrigated with the [place] Interpulse safety net maker. 6 L of saline irrigation was used in total with the Interpulse safety net maker. He has developed a bit of a flexion contracture since surgery, and I used trial polyethylene components, and decided on a 9 mm insert rather than the 11 mm insert which had been removed. He still has good varus/valgus stability, but improved knee extension. Dai Monroe, my day care assistant now held the knee in the proper position for the placement of the new polyethylene implant. The final 9 mm polyethylene was secured to the tibial baseplate with the [employer] dedicated rubber printing machine operator, and now the knee was reduced. The [place] Interpulse safety net maker was used a final time. 1 g of powdered vancomycin was placed within the joint. The arthrotomy was repaired with #1 PDS sybkff-tn-odubp sutures. The subcutaneous tissues were closed with 2-0 PDS suture by me and my day care assistant. The skin was reapproximated with #2-0 nylon sutures by me and by my day care assistant. Ms. Monroe then applied the Acticoat AG and sterile EUFEMIA single use negative pressure wound therapy dressing. An ABD dressing, soft roll and Yuri wrap were also used. Needle and sponge counts were correct. There were no apparent complications. LEENA COCHRAN MD Jan 20, 2019 20:01
[2019-01-20] MEDS ORDERED: DEXTROSE 50% 25 GM / 50ML DISP.SYRIN. IV PRN (20:15)
[2019-01-20] MEDS ORDERED: MORPHINE SULFATE 2 MG/ML VIAL. IV PRN (20:15)
[2019-01-20] MEDS ORDERED: 0.9 % SODIUM CHLORIDE 10 ML DISP.SYRIN. IV PRN (20:15)
[2019-01-20] MEDS ORDERED: METOCLOPRAMIDE HCL 10 MG/2 ML VIAL. IV PRN (20:15)
[2019-01-20] MEDS ORDERED: fentaNYL PF VIAL 100 MCG/2 ML VIAL IV PRN ×2 (20:15)
[2019-01-20] MEDS ORDERED: PROCHLORPERAZINE 5 MG TABLET. PO PRN (20:15)
[2019-01-20] MEDS ORDERED: CALCIUM CARBONATE 500 MG TAB.CHEW PO PRN (20:15)
[2019-01-20] MEDS ORDERED: ZOLPIDEM 5 MG TABLET. PO PRN (20:15)
[2019-01-20] MEDS ORDERED: MORPHINE SULFATE 4 MG/ML VIAL. IV PRN (20:15)
[2019-01-20] MEDS ORDERED: LABETALOL 20 MG/4 ML DISP.SYRIN. IVP ONE (20:15)
[2019-01-20] MEDS ORDERED: diphenhydrAMINE 50 MG/ML VIAL IV PRN (20:15)
--- NOTE | 2019-01-20 20:52 | EKG ---
[facility] [address] [place] [address] Test Date: 2019-01-20 Test Time: 20:48:30 Pat Name: GIORGIO BERGER Department: Room: [place] [address] Gender: M Ironing Worker: GOMEZ : 1945 Requested By: GWEN MAYER Order Number: [id number] Reading MD: Measurements Intervals [place] Rate: 107 P: WI: QRS: 144 QRSD: 88 T: 144 QT: 330 QTc: 446 Interpretive Statements ATRIAL FLUTTER ABNORMAL RIGHT AXIS DEVIATION LOW LIMB LEAD VOLTAGE INCOMPLETE RIGHT BUNDLE BRANCH BLOCK CONSIDER RIGHT VENTRICULAR HYPERTROPHY T ABNORMALITY IN HIGH LATERAL LEADS ABNORMAL ECG RI6.01 Compared to ECG 10/10/2014 20:42:31 Right-axis deviation now present T-wave abnormality now present Sinus rhythm no longer present
[2019-01-20] MEDS ORDERED: IV NORMAL SALINE 1000ML BAG 1,000 ML IV SCH (21:00)
[2019-01-20 21:39] VITALS: BP 90/54
[2019-01-20 23:00] VITALS: BP 86/54
[2019-01-20 23:30] VITALS: BP 73/48
[2019-01-20] MEDS ORDERED: IV NORMAL SALINE 250ML 250 ML IV ONE (23:30)
[2019-01-21] VITALS (17 sets, daily range): BP systolic 76–117; BP diastolic 50–61
[2019-01-21] MEDS: IV NORMAL SALINE 1000ML BAG 1,000 ML IV SCH ×2 (00:53→07:30)
[2019-01-21] MEDS: oxyCODONE/APAP 5/325 1 TAB TABLET PO PRN ×4 (02:41→22:44)
[2019-01-21] MEDS ORDERED: VANCOMYCIN 1 GM in IV NORMAL SALINE 250ML 250 ML IV ONE (03:00)
[2019-01-21] MEDS: ONDANSETRON PF 4 MG/2 ML VIAL. IV SCH ×3 (06:00→12:00)
[2019-01-21] MEDS ORDERED: MAGNESIUM HYDROXIDE 2,400 MG/30 ML ORAL.SUSP. PO PRN (06:00)
[2019-01-21] MEDS: ONDANSETRON ODT 4 MG TAB.RAPDIS. PO SCH ×3 (06:00→12:00)
--- NOTE | 2019-01-21 06:30 | NUR ---
Patient arrived to unit at approx 2119 accompanied by PACU nurse, , daughter, and son in law. Patient complaining of 7/10 pain right knee. VS taken-BP low. A-Fib on monitor. Assessment complete. family at bed side. bed in low locked position, call light in reach. reminded patient to call for help before attempting to ambulate. Will continue to monitor.
--- NOTE | 2019-01-21 07:33 | PDOC ---
ORTHO PROGRESS NOTES Subjective patient with no complaint of pain reported this morning. Post-op Day: 1 Procedure I&D of Right Knee with poly exchange Vitals Vital Signs Date Time Temp Pulse Resp B/P (MAP) Pulse Ox O2 Delivery O2 Flow Rate FiO2 01/21/19 03:41 96 1.5 01/21/19 03:05 99.3 99 18 93/50 (64) Nasal Cannula 99.3 Labs Laboratory Tests Test 01/20/19 14:30 01/20/19 16:31 01/20/19 19:46 01/20/19 21:28 White Blood Count 3.3 x10^3/uL (4.0-11.0) Red Blood Count 2.21 x10^6/uL (4.30-5.70) Hemoglobin 8.1 g/dL (13.0-17.5) Hematocrit 23.4 % (39.0-53.0) Mean Corpuscular Volume 106 fL (79-100) Mean Corpuscular Hemoglobin 37 pg (25-35) Mean Corpuscular Hemoglobin Concent 35 g/dL (31-37) Red Cell Distribution Width 16.4 % (11.5-14.5) Platelet Count 262 x10^3/uL (140-400) Neutrophils (%) (Auto) 65 % (31-73) Lymphocytes (%) (Auto) 22 % (24-48) Monocytes (%) (Auto) 10 % (0-9) Eosinophils (%) (Auto) 1 % (0-3) Basophils (%) (Auto) 1 % (0-3) Neutrophils # (Auto) 2.1 x10^3/uL (1.8-7.7) Lymphocytes # (Auto) 0.7 x10^3/uL (1.0-4.8) Monocytes # (Auto) 0.3 x10^3/uL (0.0-1.1) Eosinophils # (Auto) 0.0 x10^3/uL (0.0-0.7) Basophils # (Auto) 0.0 x10^3/uL (0.0-0.2) Segmented Neutrophils % 69 % (35-66) Band Neutrophils % 2 % (0-9) Lymphocytes % 21 % (24-48) Monocytes % 6 % (0-10) Eosinophils % 1 % (0-5) Metamyelocytes % 1 % (0-0) Platelet Estimate Adequate (ADEQUATE) Large Platelets Present Erythrocyte Sedimentation Rate 119 (0-15) Prothrombin Time 15.0 SEC (11.7-14.0) Prothromb Time International Ratio 1.2 (0.8-1.1) Activated Partial Thromboplast Time 34 SEC (24-38) Sodium Level 129 mmol/L (136-145) Potassium Level 4.1 mmol/L (3.5-5.1) Chloride Level 94 mmol/L (98-107) Carbon Dioxide Level 24 mmol/L (21-32) Anion Gap 11 (6-14) Blood Urea Nitrogen 15 mg/dL (8-26) Creatinine 1.3 mg/dL (0.7-1.3) Estimated GFR (Cockcroft-Gault) 54.0 Glucose Level 163 mg/dL (70-99) Calcium Level 8.7 mg/dL (8.5-10.1) C-Reactive Protein, Quantitative 19.2 mg/L (0-3.3) Albumin 2.8 g/dL (3.4-5.0) Glucose (Fingerstick) 186 mg/dL (70-99) 78 mg/dL (70-99) 156 mg/dL (70-99) Laboratory Tests Test 01/20/19 14:30 01/20/19 16:31 01/20/19 19:46 01/20/19 21:28 White Blood Count 3.3 x10^3/uL (4.0-11.0) Red Blood Count 2.21 x10^6/uL (4.30-5.70) Hemoglobin 8.1 g/dL (13.0-17.5) Hematocrit 23.4 % (39.0-53.0) Mean Corpuscular Volume 106 fL (79-100) Mean Corpuscular Hemoglobin 37 pg (25-35) Mean Corpuscular Hemoglobin Concent 35 g/dL (31-37) Red Cell Distribution Width 16.4 % (11.5-14.5) Platelet Count 262 x10^3/uL (140-400) Neutrophils (%) (Auto) 65 % (31-73) Lymphocytes (%) (Auto) 22 % (24-48) Monocytes (%) (Auto) 10 % (0-9) Eosinophils (%) (Auto) 1 % (0-3) Basophils (%) (Auto) 1 % (0-3) Neutrophils # (Auto) 2.1 x10^3/uL (1.8-7.7) Lymphocytes # (Auto) 0.7 x10^3/uL (1.0-4.8) Monocytes # (Auto) 0.3 x10^3/uL (0.0-1.1) Eosinophils # (Auto) 0.0 x10^3/uL (0.0-0.7) Basophils # (Auto) 0.0 x10^3/uL (0.0-0.2) Segmented Neutrophils % 69 % (35-66) Band Neutrophils % 2 % (0-9) Lymphocytes % 21 % (24-48) Monocytes % 6 % (0-10) Eosinophils % 1 % (0-5) Metamyelocytes % 1 % (0-0) Platelet Estimate Adequate (ADEQUATE) Large Platelets Present Erythrocyte Sedimentation Rate 119 (0-15) Prothrombin Time 15.0 SEC (11.7-14.0) Prothromb Time International Ratio 1.2 (0.8-1.1) Activated Partial Thromboplast Time 34 SEC (24-38) Sodium Level 129 mmol/L (136-145) Potassium Level 4.1 mmol/L (3.5-5.1) Chloride Level 94 mmol/L (98-107) Carbon Dioxide Level 24 mmol/L (21-32) Anion Gap 11 (6-14) Blood Urea Nitrogen 15 mg/dL (8-26) Creatinine 1.3 mg/dL (0.7-1.3) Estimated GFR (Cockcroft-Gault) 54.0 Glucose Level 163 mg/dL (70-99) Calcium Level 8.7 mg/dL (8.5-10.1) C-Reactive Protein, Quantitative 19.2 mg/L (0-3.3) Albumin 2.8 g/dL (3.4-5.0) Glucose (Fingerstick) 186 mg/dL (70-99) 78 mg/dL (70-99) 156 mg/dL (70-99) Notes awake and alert with family in room. Assessment and Plan POD # 1 S/P I&D Right knee infection with poly exchange motor and sensation intact distally dressing dry and intact WBAT with Walker and PT assist CELENA NATARAJAN APRN Jan 21, 2019 07:33
--- NOTE | 2019-01-21 07:59 | RAD ---
Two-view right knee study Clinical indications: Postoperative study. FINDINGS: Total right knee arthroplasty is evident which is well aligned. No acute fracture or lytic process is seen. IMPRESSION: Total right knee arthroplasty. Electronically signed by: Kolton Lentz MD (01/21/2019 7:56 AM) [facility]
[2019-01-21] MEDS: INSULIN LISPRO 300 UNITS/3 ML VIAL. SQ SCH ×3 (08:00→17:00)
[2019-01-21] MEDS: SENNOSIDES/DOCUSATE 8.6/50MG TABLET. PO SCH (08:41)
[2019-01-21] MEDS: MULTIVITAMIN with MINERAL TABLET. PO SCH (08:41)
[2019-01-21] MEDS: ASPIRIN ENTERIC COATED 81 MG TABLET.DR. PO SCH (08:42)
--- NOTE | 2019-01-21 08:55 | RAD ---
DUPLEX SONOGRAPHY OF THE PERIPHERAL ARTERIAL SYSTEM OF THE RIGHT LOWER EXTREMITY Clinical indications: Nonhealing wound. Findings: Duplex sonography of the peripheral arterial system of the right lower extremity including valera scale and color flow and spectral waveform analysis was performed.Triphasic waveforms are seen. The right knee area is wrapped and therefore the right popliteal artery cannot be evaluated. The right peroneal artery is not visualized and therefore patency cannot be confirmed. The other arteries are patent and there is no abnormal elevation of peak systolic flow velocity measurement to indicate a significant focal stenosis. The measurements were performed using the NASCET criteria. Peak systolic flow velocities are as follows: Right leg: common femoral artery- 135 cm/sec, profunda femoral artery -93 cm/sec, proximal superficial femoral artery -94 cm/sec, mid superficial femoral artery -83 cm/sec, distal superficial femoral artery- 80 cm/sec, popliteal artery -not visualized, proximal posterior tibial artery- 51 cm/sec, distal posterior tibial artery- 43 cm/sec, peroneal artery-not visualized, anterior tibial artery- 109 cm/sec, dorsalis pedis artery -81 cm/sec. Impression: Right popliteal artery cannot be evaluated due to knee bandaging. Right peroneal artery is not visualized and therefore patency cannot be confirmed. No occlusive disease is seen elsewhere. No tight stenosis is evident elsewhere. No Electronically signed by: Kolton Lentz MD (01/21/2019 8:52 AM) [facility]
[2019-01-21 09:03] LABS: HEMATOCRIT 21.4 % (39.0-53.0); HEMOGLOBIN 7.2 g/dL (13.0-17.5); RED BLOOD COUNT 1.99 x10^6/uL (4.30-5.70); RED CELL DISTRIBUTION WIDTH 17.3 % (11.5-14.5); WHITE BLOOD COUNT 6.1 x10^3/uL (4.0-11.0)
[2019-01-21 09:16] LABS: CALCIUM 7.5 mg/dL (8.5-10.1); CREATININE 1.6 mg/dL (0.7-1.3); GFR 42.5; MAGNESIUM 1.7 mg/dL (1.8-2.4); POTASSIUM 4.7 mmol/L (3.5-5.1)
--- NOTE | 2019-01-21 09:49 | PDOC2 ---
GILLES CABRERA MANAGER RESEARCH AND DEVELOPMENT 01/21/19 0948: CARDIAC CONSULT DATE OF CONSULT Date of Consult DATE: 01/21/19 TIME: 09:45 REASON FOR CONSULT Reason for Consult: AFIB RVR REFERRING PHYSICIAN Referring Physician: Sammie SOURCE Source: Chart review, Patient HISTORY OF PRESENT ILLNESS HISTORY OF PRESENT ILLNESS This is a 74 yo male admitted for planned right knee revision. He had a RTKA on 12/30/2018 and developed infection and was treated with antibiotics for about 10 days prior to surgery. He has been diagnosed with AFIB recently upon echocardiogram in 09/2018 and was placed on xarelto which was stopped after his knee surgery due to incomplete hemostasis with slowed oozing for 3 weeks per spouse. He has not any event monitor as an outpt and has not seen any commissary helper. He was not on any rate controlling agents. No hx of CVA nor CAD. Postoperatively he was noted with low BP and AFIB RVR and was place on low dose dopamine and IVF. His BP has improved and his HR has improved as well. Reports controlled surgical pain and no complains of CP or SOA. PAST MEDICAL HISTORY Cardiovascular: AFIB, HTN GI: Other (bowel perforation) Heme/Onc: No pertinent hx Hepatobiliary: No pertinent hx Musculoskeletal: Osteoarthritis, Other (right knee cellulitis) Renal/: No pertinent hx Endocrine: Diabetes (2 diet controlled), Hypothyroidism Dermatology: No pertinent hx PAST SURGICAL HISTORY Past Surgical History: Cholecystectomy, Hernia Repair (left inguinal), Total knee replacement (right), Other (Abdominal exploratory laparotomy) FAMILY HISTORY Family History: Stroke (father) SOCIAL HISTORY Smoke: Quit (1986 22pk yr) ALCOHOL: none Drugs: None Lives: with Family CURRENT MEDICATIONS CURRENT MEDICATIONS Current Medications Medications (Trade) Dose Ordered Sig/Nicole Route PRN Reason Start Time Stop Time Status Last Admin Dose Admin Vancomycin HCl (Vancomycin) 2 gm STK-MED ONCE .ROUTE 01/20/19 15:06 01/20/19 15:06 DC 01/20/19 18:25 Labetalol HCl (Normodyne Iv Push) 10 mg 1X ONCE IVP 01/20/19 20:15 01/20/19 20:17 DC 01/20/19 20:14 Fentanyl Citrate (Fentanyl 2ml Vial) 25 mcg PRN Q1HR PRN IV PAIN, MILD TO MOD 2nd CHOICE 01/20/19 20:15 01/21/19 01:32 Multivitamins (Thera M Plus) 1 tab DAILY PO 01/21/19 09:00 01/21/19 08:41 Senna/Docusate Sodium (Senna Plus) 1 tab DAILY PO 01/21/19 09:00 01/21/19 08:41 Vancomycin HCl 1 gm/Sodium Chloride 250 ml @ 250 mls/hr 1X ONCE IV 01/21/19 03:00 01/21/19 03:59 DC 01/21/19 02:58 Oxycodone/ Acetaminophen (Percocet 5/325) 1 tab PRN Q4HRS PRN PO PAIN MILD TO MOD 01/20/19 20:15 01/21/19 09:38 Aspirin (Ecotrin) 81 mg DAILYWBKFT PO 01/21/19 08:00 01/21/19 08:42 Sodium Chloride 250 ml @ 250 mls/hr 1X ONCE IV 01/20/19 23:30 01/21/19 00:29 DC 01/20/19 23:39 Sodium Chloride 1,000 ml @ 150 mls/hr Q6H40M IV 01/20/19 23:30 01/21/19 07:30 Dopamine HCl/ Dextrose 250 ml @ 6.055 mls/ hr CONT PRN IV SEE I/O RECORD 01/20/19 23:30 01/21/19 00:10 ALLERGIES ALLERGIES: Coded Allergies: zolpidem (Verified Adverse Reaction, Mild, Hallucination, 01/21/19) ROS Review of System 14 point ROS evaluated with pertinent positives noted per HPI PHYSICAL EXAM General: Alert, Oriented X3, Cooperative, No acute distress HEENT: Atraumatic, Mucous membr. moist/pink Lungs: Other (diminished bases) Heart: Other (AFIB) Abdomen: Soft, No tenderness Extremities: No cyanosis, Other (neurovascular status to bilateral LE intact) Skin: Other (right surgical knee with bandage) Neuro: Normal speech, Sensation intact Psych/Mental Status: Mental status NL, Mood NL MUSCULOSKELETAL: Osteoarthritic changes both hands VITALS/I&O VITALS/I&O: Vital Signs Date Time Temp Pulse Resp B/P (MAP) Pulse Ox O2 Delivery O2 Flow Rate FiO2 01/21/19 09:38 Room Air 01/21/19 07:00 98.7 81 18 101/61 (74) 98 98.7 01/21/19 03:41 1.5 I & O 01/20/19 01/20/19 01/21/19 15:00 23:00 07:00 Intake Total 2490 ml 700 ml Output Total 100 ml Balance 2390 ml 700 ml LABS Lab: Laboratory Tests Test 01/20/19 14:30 01/20/19 16:31 01/20/19 19:46 01/20/19 21:28 White Blood Count 3.3 x10^3/uL (4.0-11.0) L Red Blood Count 2.21 x10^6/uL (4.30-5.70) L Hemoglobin 8.1 g/dL (13.0-17.5) L Hematocrit 23.4 % (39.0-53.0) L Mean Corpuscular Volume 106 fL (79-100) H Mean Corpuscular Hemoglobin 37 pg (25-35) H Mean Corpuscular Hemoglobin Concent 35 g/dL (31-37) Red Cell Distribution Width 16.4 % (11.5-14.5) H Platelet Count 262 x10^3/uL (140-400) Neutrophils (%) (Auto) 65 % (31-73) Lymphocytes (%) (Auto) 22 % (24-48) L Monocytes (%) (Auto) 10 % (0-9) H Eosinophils (%) (Auto) 1 % (0-3) Basophils (%) (Auto) 1 % (0-3) Neutrophils # (Auto) 2.1 x10^3/uL (1.8-7.7) Lymphocytes # (Auto) 0.7 x10^3/uL (1.0-4.8) L Monocytes # (Auto) 0.3 x10^3/uL (0.0-1.1) Eosinophils # (Auto) 0.0 x10^3/uL (0.0-0.7) Basophils # (Auto) 0.0 x10^3/uL (0.0-0.2) Segmented Neutrophils % 69 % (35-66) H Band Neutrophils % 2 % (0-9) Lymphocytes % 21 % (24-48) L Monocytes % 6 % (0-10) Eosinophils % 1 % (0-5) Metamyelocytes % 1 % (0-0) H Platelet Estimate Adequate (ADEQUATE) Large Platelets Present Erythrocyte Sedimentation Rate 119 (0-15) H Prothrombin Time 15.0 SEC (11.7-14.0) H Prothrombin Time INR 1.2 (0.8-1.1) H Activated Partial Thromboplast Time 34 SEC (24-38) Sodium Level 129 mmol/L (136-145) L Potassium Level 4.1 mmol/L (3.5-5.1) Chloride Level 94 mmol/L (98-107) L Carbon Dioxide Level 24 mmol/L (21-32) Anion Gap 11 (6-14) Blood Urea Nitrogen 15 mg/dL (8-26) Creatinine 1.3 mg/dL (0.7-1.3) Estimated GFR (Cockcroft-Gault) 54.0 Glucose Level 163 mg/dL (70-99) H Calcium Level 8.7 mg/dL (8.5-10.1) C-Reactive Protein, Quantitative 19.2 mg/L (0-3.3) H Albumin 2.8 g/dL (3.4-5.0) L Glucose (Fingerstick) 186 mg/dL (70-99) H 78 mg/dL (70-99) 156 mg/dL (70-99) H Test 01/21/19 08:40 01/21/19 08:46 White Blood Count 6.1 x10^3/uL (4.0-11.0) Red Blood Count 1.99 x10^6/uL (4.30-5.70) L Hemoglobin 7.2 g/dL (13.0-17.5) L Hematocrit 21.4 % (39.0-53.0) L Mean Corpuscular Volume 108 fL (79-100) H Mean Corpuscular Hemoglobin 36 pg (25-35) H Mean Corpuscular Hemoglobin Concent 34 g/dL (31-37) Red Cell Distribution Width 17.3 % (11.5-14.5) H Platelet Count 210 x10^3/uL (140-400) Sodium Level 129 mmol/L (136-145) L Potassium Level 4.7 mmol/L (3.5-5.1) Chloride Level 96 mmol/L (98-107) L Carbon Dioxide Level 22 mmol/L (21-32) Anion Gap 11 (6-14) Blood Urea Nitrogen 20 mg/dL (8-26) Creatinine 1.6 mg/dL (0.7-1.3) H Estimated GFR (Cockcroft-Gault) 42.5 Glucose Level 181 mg/dL (70-99) H Calcium Level 7.5 mg/dL (8.5-10.1) L Magnesium Level 1.7 mg/dL (1.8-2.4) L Thyroid Stimulating Hormone (TSH) 4.218 uIU/mL (0.358-3.74) H Glucose (Fingerstick) 166 mg/dL (70-99) H Laboratory Tests 01/20/19 14:30 01/21/19 08:40 Laboratory Tests 01/20/19 14:30 01/21/19 08:40 ECHOCARDIOGRAM ECHOCARDIOGRAM <Conclusion> The left ventricle is normal size. The left ventricular systolic function is normal and the ejection fraction is within normal range. The Ejection Fraction is 55-60%. There is borderline concentric left ventricular hypertrophy. There is no significant aortic valvular stenosis. Doppler and Color Flow revealed no significant aortic regurgitation. Doppler and Color-flow revealed mild mitral regurgitation. Doppler and Color Flow revealed mild tricuspid regurgitation with an estimated P AP of 42 mmHg. DATE: 10/06/18 1356 ASSESSMENT/PLAN ASSESSMENT/PLAN 1. S/P right knee revision: POD#1 2. AFIB RVR: chronic vs paroxysmal. improving 3. Postoperative anemia: Hgb 7.2 4. Hypotension: BP improved 5. DM2: with hx of damaged pancreas. diet controlled per pt. 6. Hypothyroidism: TSH not on goal, defer to PCP 7. Macrocytic anemia Recommendations 1. DC dopamine. Push PO fluids. Transfuse 1U PRBC and DC IVF 2. Check A1C 3. Dig po x1. Replace Mg. monitor HR and possibly start on BB tomorrow pending BP trend 4. Xarelto on hold due to previous hx of continued knee oozing post RTKA ASA for now for stroke prevention and restart xarelto when cleared with ortho 5. AFIB new noted initially on . MCOT and will entertain possibility of outpt CVN once knee is healed and on consistent xarelto. 6. Follow up in office JULIO KHANNA MD 01/21/19 7471: CARDIAC CONSULT ASSESSMENT/PLAN ASSESSMENT/PLAN Patient seen and examined. Agree with PARTY PLAN SELLING DISTRIBUTOR's assessment and plan. Atrial fibrillation with rate better controlled after digoxin Agree with resuming beta blockers tomorrow Restart xarelto for stroke prophylaxis when okay from orthopedic standpoint We will consider outpatient cardioversion in 3-4 weeks Thank you for your consultation GILLES CABRERA APRN Jan 21, 2019 09:48 JULIO KHANNA MD Jan 21, 2019 17:01
[2019-01-21] MEDS ORDERED: DIGOXIN 125 MCG TABLET. PO ONE (10:15)
[2019-01-21] MEDS ORDERED: MAGNESIUM SULFATE 1GM 100 ML IV ONE (11:00)
[2019-01-21] MEDS: DAPTOmycin (GENERIC) IVPB 480 MG in IV NORMAL SALINE 50ML 50 ML IV SCH (11:27)
--- NOTE | 2019-01-21 11:59 | NUR ---
SS following for discharge planning. SS reviewed pt chart. Pt is from home with spouse and is currently on room air. SS will continue to follow for discharge planning.
[2019-01-21] MEDS ORDERED: ONDANSETRON ODT 4 MG TAB.RAPDIS. PO PRN (12:00)
[2019-01-21] MEDS ORDERED: ONDANSETRON PF 4 MG/2 ML VIAL. IV PRN (12:00)
[2019-01-21] MEDS: PIPERACILLIN/TAZOBACTAM 3.375 GM in IV NORMAL SALINE 50ML 50 ML IV SCH ×3 (12:21→23:32)
--- NOTE | 2019-01-21 12:49 | CONS ---
DATE OF CONSULTATION: 01/21/2019 REFERRING PHYSICIAN: Dr Cochran. REASON FOR CONSULTATION: Antibiotic management for right prosthetic joint infection. HISTORY OF PRESENT ILLNESS: A 74-year-old male with past medical history of diabetes, GERD, hypertension, hypothyroidism, history of pancreatitis, hernia repair, who underwent right total knee arthroplasty on 12/30/2018, was admitted for elective right knee surgery. Pt has intermitent drainage. The patient underwent synovial aspirate by Dr. Cochran at his office a couple of days prior to admission. Synosure results per team revealed possible infection, patient was thought to have possible early prosthetic right knee infection, so he underwent surgery yesterday. He underwent a right knee I and D and revision of polyethylene one component of total knee arthroplasty on 01/20/2019. He was noted to have cloudy synovial fluid. Antibiotics were dozed during surgery. He received one dose of IV vancomycin. He was subsequently admitted to Cardiology Unit as he had AFib with RVR. He required labetalol initially as his blood pressure was high. Subsequently, he required dopamine as his blood pressure dropped. Today, his hemoglobin has dropped to 7.2. He is going to receive 1 unit of blood transfusion this morning. The patient denies any fevers, chills, nausea, vomiting. Pain is under control. Denies any headache. Denies being on any antibiotics prior to admission. Denies any symptoms. PAST MEDICAL HISTORY: Diabetes mellitus, GERD, hypertension, hypothyroidism, history of pancreatitis, history of abdominal hernia repair, history of total knee replacement with surgery as above. CURRENT MEDICATION: IV vancomycin dose once, labetalol. Other medications reviewed in medication list. ALLERGIES: ZOLPIDEM. FAMILY HISTORY: As per HPI. REVIEW OF SYSTEMS: Negative except for above in HPI. PHYSICAL EXAMINATION: VITAL SIGNS: Temperature 98.7, pulse 81, respiratory rate 18, blood pressure 101/61, oxygen saturation 98% on room air. GENERAL: Alert, oriented x 3, well-nourished, well-developed male in no acute distress, nontoxic appearing. HEENT: Normocephalic, atraumatic, anicteric. No thrush. NECK: Supple, no JVD. LUNGS: Clear bilaterally. No wheezing. HEART: S1, S2 irregular, no murmurs. ABDOMEN: Soft, nontender, no rebound. EXTREMITIES: Right lower extremity in dressing intact, not taken down. NEUROLOGIC: Alert and oriented x 3, grossly nonfocal. PSYCHIATRIC: Cooperative, appropriate mood and affect. DERMATOLOGIC: Warm, dry. No generalized rash. LABORATORY DATA: WBC 6.1, baseline was 3.4, hemoglobin 7.2, hematocrit 21.4, platelets 210. ESR 119. Sodium 129, potassium 4.7, chloride 96, bicarbonate 22, BUN 20, creatinine 1.6, was 1.3, glucose 166, calcium 7.5, mag 1.7. TSH 4.218. Nasal screen 12/08/2018 negative. Intraoperative cultures pending at this time. IMAGING: Knee x-ray 12/30/2018 2-veiw of right knee joint prosthesis. On 01/21/2019, total knee right arthroplasty. Duplex right lower extremity, right popliteal artery cannot be evaluated due to knee bandaging, right peroneal artery is not visualized and therefore patency cannot be confirmed. No occlusive disease is seen elsewhere. No tight stenosis is evident. IMPRESSION: 1. Status post right knee incision and drainage and revision of polyethylene (1 component) of total knee arthroplasty. 2. Status post recent total knee arthroplasty 12/30/2018. 3. Atrial fibrillation with rapid ventricular response. 4. Anemia. 5. Leukopenia. 6. Diabetes mellitus. 7. Acute kidney injury. 8. Atrial fibrillation. RECOMMENDATIONS: 1. Would not dose further with IV vancomycin due to PRESLEY. 2. Start daptomycin 6 mg per kg daily. We will need adjustment according to renal function. 3. Start Zosyn empirically. 4. Follow up intraoperative cultures. 5. Blood cultures. 6. Follow up labs and cultures in a.m. 7. Continue local wound care per Ortho. 8. PT and OT per Ortho. Thank you for allowing Infectious Disease to participate in this patient's care. If you have any questions, do not hesitate to contact. Discussed with nursing staff. JIHAN SANTANA MD DR: ISABELLE/candie JOB#: [id number] / [id number] CHANAD
--- NOTE | 2019-01-21 14:30 | PDOC ---
PROGRESS NOTES Subjective Subjective Reasonably comfortable, pain 5/10 but due for Percocet. Discussed his history of DMII with him. 5-7 years, and had been on Metformin for awhile, but no aggressively being treated for DM recently. I did review his extensive wound care list of visits--I was aware he'd received wound care prior to surgery but not the extent. He denies neuropathy. He had arterial studies 2 years ago, and I repeated those yesterday, and he doesn't appear to have treatable macrovascular disease. I suspect micro-angiopathy from diabetes is impairing wound healing. Hbg A1C result is pending. Objective Vital Signs Vital Signs Date Time Temp Pulse Resp B/P (MAP) Pulse Ox O2 Delivery O2 Flow Rate FiO2 01/21/19 11:33 97 112/61 01/21/19 11:00 98.3 16 100 Room Air 98.3 01/21/19 03:41 1.5 Physical Exam Outer dressing removed. EUFEMIA left intact, with spotty drainage only at distal incision. No effusion. Pulses present but faint. Small heel ulcer, healing blister at lateral knee not touching incision, and small lateral lower leg superficial ulcer. Labs Laboratory Tests Test 01/20/19 14:30 01/20/19 16:31 01/20/19 19:46 01/20/19 21:28 White Blood Count 3.3 x10^3/uL (4.0-11.0) Red Blood Count 2.21 x10^6/uL (4.30-5.70) Hemoglobin 8.1 g/dL (13.0-17.5) Hematocrit 23.4 % (39.0-53.0) Mean Corpuscular Volume 106 fL (79-100) Mean Corpuscular Hemoglobin 37 pg (25-35) Mean Corpuscular Hemoglobin Concent 35 g/dL (31-37) Red Cell Distribution Width 16.4 % (11.5-14.5) Platelet Count 262 x10^3/uL (140-400) Neutrophils (%) (Auto) 65 % (31-73) Lymphocytes (%) (Auto) 22 % (24-48) Monocytes (%) (Auto) 10 % (0-9) Eosinophils (%) (Auto) 1 % (0-3) Basophils (%) (Auto) 1 % (0-3) Neutrophils # (Auto) 2.1 x10^3/uL (1.8-7.7) Lymphocytes # (Auto) 0.7 x10^3/uL (1.0-4.8) Monocytes # (Auto) 0.3 x10^3/uL (0.0-1.1) Eosinophils # (Auto) 0.0 x10^3/uL (0.0-0.7) Basophils # (Auto) 0.0 x10^3/uL (0.0-0.2) Segmented Neutrophils % 69 % (35-66) Band Neutrophils % 2 % (0-9) Lymphocytes % 21 % (24-48) Monocytes % 6 % (0-10) Eosinophils % 1 % (0-5) Metamyelocytes % 1 % (0-0) Platelet Estimate Adequate (ADEQUATE) Large Platelets Present Erythrocyte Sedimentation Rate 119 (0-15) Prothrombin Time 15.0 SEC (11.7-14.0) Prothromb Time International Ratio 1.2 (0.8-1.1) Activated Partial Thromboplast Time 34 SEC (24-38) Sodium Level 129 mmol/L (136-145) Potassium Level 4.1 mmol/L (3.5-5.1) Chloride Level 94 mmol/L (98-107) Carbon Dioxide Level 24 mmol/L (21-32) Anion Gap 11 (6-14) Blood Urea Nitrogen 15 mg/dL (8-26) Creatinine 1.3 mg/dL (0.7-1.3) Estimated GFR (Cockcroft-Gault) 54.0 Glucose Level 163 mg/dL (70-99) Calcium Level 8.7 mg/dL (8.5-10.1) C-Reactive Protein, Quantitative 19.2 mg/L (0-3.3) Albumin 2.8 g/dL (3.4-5.0) Glucose (Fingerstick) 186 mg/dL (70-99) 78 mg/dL (70-99) 156 mg/dL (70-99) Test 01/21/19 08:40 01/21/19 08:46 01/21/19 11:56 White Blood Count 6.1 x10^3/uL (4.0-11.0) Red Blood Count 1.99 x10^6/uL (4.30-5.70) Hemoglobin 7.2 g/dL (13.0-17.5) Hematocrit 21.4 % (39.0-53.0) Mean Corpuscular Volume 108 fL (79-100) Mean Corpuscular Hemoglobin 36 pg (25-35) Mean Corpuscular Hemoglobin Concent 34 g/dL (31-37) Red Cell Distribution Width 17.3 % (11.5-14.5) Platelet Count 210 x10^3/uL (140-400) Sodium Level 129 mmol/L (136-145) Potassium Level 4.7 mmol/L (3.5-5.1) Chloride Level 96 mmol/L (98-107) Carbon Dioxide Level 22 mmol/L (21-32) Anion Gap 11 (6-14) Blood Urea Nitrogen 20 mg/dL (8-26) Creatinine 1.6 mg/dL (0.7-1.3) Estimated GFR (Cockcroft-Gault) 42.5 Glucose Level 181 mg/dL (70-99) Calcium Level 7.5 mg/dL (8.5-10.1) Magnesium Level 1.7 mg/dL (1.8-2.4) Thyroid Stimulating Hormone (TSH) 4.218 uIU/mL (0.358-3.74) Glucose (Fingerstick) 166 mg/dL (70-99) 203 mg/dL (70-99) Laboratory Tests Test 01/20/19 14:30 01/20/19 16:31 01/20/19 19:46 01/20/19 21:28 White Blood Count 3.3 x10^3/uL (4.0-11.0) Red Blood Count 2.21 x10^6/uL (4.30-5.70) Hemoglobin 8.1 g/dL (13.0-17.5) Hematocrit 23.4 % (39.0-53.0) Mean Corpuscular Volume 106 fL (79-100) Mean Corpuscular Hemoglobin 37 pg (25-35) Mean Corpuscular Hemoglobin Concent 35 g/dL (31-37) Red Cell Distribution Width 16.4 % (11.5-14.5) Platelet Count 262 x10^3/uL (140-400) Neutrophils (%) (Auto) 65 % (31-73) Lymphocytes (%) (Auto) 22 % (24-48) Monocytes (%) (Auto) 10 % (0-9) Eosinophils (%) (Auto) 1 % (0-3) Basophils (%) (Auto) 1 % (0-3) Neutrophils # (Auto) 2.1 x10^3/uL (1.8-7.7) Lymphocytes # (Auto) 0.7 x10^3/uL (1.0-4.8) Monocytes # (Auto) 0.3 x10^3/uL (0.0-1.1) Eosinophils # (Auto) 0.0 x10^3/uL (0.0-0.7) Basophils # (Auto) 0.0 x10^3/uL (0.0-0.2) Segmented Neutrophils % 69 % (35-66) Band Neutrophils % 2 % (0-9) Lymphocytes % 21 % (24-48) Monocytes % 6 % (0-10) Eosinophils % 1 % (0-5) Metamyelocytes % 1 % (0-0) Platelet Estimate Adequate (ADEQUATE) Large Platelets Present Erythrocyte Sedimentation Rate 119 (0-15) Prothrombin Time 15.0 SEC (11.7-14.0) Prothromb Time International Ratio 1.2 (0.8-1.1) Activated Partial Thromboplast Time 34 SEC (24-38) Sodium Level 129 mmol/L (136-145) Potassium Level 4.1 mmol/L (3.5-5.1) Chloride Level 94 mmol/L (98-107) Carbon Dioxide Level 24 mmol/L (21-32) Anion Gap 11 (6-14) Blood Urea Nitrogen 15 mg/dL (8-26) Creatinine 1.3 mg/dL (0.7-1.3) Estimated GFR (Cockcroft-Gault) 54.0 Glucose Level 163 mg/dL (70-99) Calcium Level 8.7 mg/dL (8.5-10.1) C-Reactive Protein, Quantitative 19.2 mg/L (0-3.3) Albumin 2.8 g/dL (3.4-5.0) Glucose (Fingerstick) 186 mg/dL (70-99) 78 mg/dL (70-99) 156 mg/dL (70-99) Test 01/21/19 08:40 01/21/19 08:46 01/21/19 11:56 White Blood Count 6.1 x10^3/uL (4.0-11.0) Red Blood Count 1.99 x10^6/uL (4.30-5.70) Hemoglobin 7.2 g/dL (13.0-17.5) Hematocrit 21.4 % (39.0-53.0) Mean Corpuscular Volume 108 fL (79-100) Mean Corpuscular Hemoglobin 36 pg (25-35) Mean Corpuscular Hemoglobin Concent 34 g/dL (31-37) Red Cell Distribution Width 17.3 % (11.5-14.5) Platelet Count 210 x10^3/uL (140-400) Sodium Level 129 mmol/L (136-145) Potassium Level 4.7 mmol/L (3.5-5.1) Chloride Level 96 mmol/L (98-107) Carbon Dioxide Level 22 mmol/L (21-32) Anion Gap 11 (6-14) Blood Urea Nitrogen 20 mg/dL (8-26) Creatinine 1.6 mg/dL (0.7-1.3) Estimated GFR (Cockcroft-Gault) 42.5 Glucose Level 181 mg/dL (70-99) Calcium Level 7.5 mg/dL (8.5-10.1) Magnesium Level 1.7 mg/dL (1.8-2.4) Thyroid Stimulating Hormone (TSH) 4.218 uIU/mL (0.358-3.74) Glucose (Fingerstick) 166 mg/dL (70-99) 203 mg/dL (70-99) Imaging Postop after revision with poly exchange shows no fracture or other complication. Assessment Assessment Presumptive postop TKA infection. Office cultures neg, but I would plan for 6 weeks of IV antibiotics or per ID recs. Hospital cultures drawn yesterday aren't even registered in the system as received at this time! (Synovial fluid from OR: Gram stain, aerobic, anaerobic, fungal and AFB were ordered yesterday.) Poor wound healing--likely microvascular from DM. Plan Plan of Care Afib with RVR--Cardiology input appreciated. Follow their recs. Check A1C and he needs aggressive glucose control for wound healing. I'm going to ask his PCP Dr. Hills to be involved as inpatient-- (hospital consult.) Postop acute blood loss anemia--receiving transfusion 1 u PRBC now. I discussed case with Dr. Renzo Castellanos and will follow her recs for antibiotic management. Hypomagnesiumia -- initial treatment by cardiology-- Dr. Hills also consulted. Will get wound care/nutrition on board for recs regarding healing. He may WBAT and do gentle AAROM knee. LEENA ANNE MD Jan 21, 2019 14:30
[2019-01-21] MEDS ORDERED: BISACODYL 10 MG SUPP.RECT. PR PRN (16:00)
[2019-01-21 23:07] LABS: HEMOGLOBIN A1C 6.5 % (4.8-5.6)
[2019-01-22 03:59] VITALS: BP 111/57
[2019-01-22] MEDS: PIPERACILLIN/TAZOBACTAM 3.375 GM in IV NORMAL SALINE 50ML 50 ML IV SCH ×3 (05:48→17:34)
[2019-01-22 07:00] VITALS: BP 122/65
[2019-01-22] MEDS: INSULIN LISPRO 300 UNITS/3 ML VIAL. SQ SCH ×3 (08:00→17:42)
--- NOTE | 2019-01-22 08:41 | PDOC ---
Infectious Disease Note Subjective: Subjective Pt says feels ok postop pain is under control no f/c/n/v/d/abdo pain/sob Vital Signs: Vital Signs Vital Signs Date Time Temp Pulse Resp B/P (MAP) Pulse Ox O2 Delivery O2 Flow Rate FiO2 01/22/19 07:00 98.4 94 16 122/65 (84) 99 Room Air 98.4 Physical Exam: PHYSICAL EXAM GENERAL: Alert, oriented x 3, well-nourished, well-developed male in no acute distress, nontoxic appearing. HEENT: Normocephalic, atraumatic, anicteric. No thrush. NECK: Supple, no JVD. LUNGS: Clear bilaterally. No wheezing. HEART: S1, S2 irregular, no murmurs. ABDOMEN: Soft, nontender, no rebound. EXTREMITIES: Right lower extremity in dressing intact, not taken down. NEUROLOGIC: Alert and oriented x 3, grossly nonfocal. PSYCHIATRIC: Cooperative, appropriate mood and affect. DERMATOLOGIC: Warm, dry. No generalized rash. Medications: Inpatient Meds: Current Medications Medications (Trade) Dose Ordered Sig/Nicole Start Time Stop Time Status Last Admin Dose Admin Acetaminophen (Tylenol) 1,000 mg 1X PREOP PRN 01/20/19 06:00 01/20/19 18:00 DC 01/20/19 14:49 1,000 MG Aspirin (Ecotrin) 81 mg DAILYWBKFT 01/21/19 08:00 01/21/19 08:42 81 MG Bisacodyl (Dulcolax Supp) 10 mg 1X PRN PRN 01/21/19 16:00 01/22/19 15:59 Calcium Carbonate/ Glycine (Tums) 500 mg PRN QID PRN 01/20/19 20:15 Cefazolin Sodium/ Dextrose (Ancef 2gm Premix) 2 gm STK-MED ONCE 01/20/19 07:00 01/21/19 12:24 DC Daptomycin 480 mg/ Sodium Chloride 50 ml @ 100 mls/hr Q24H 01/21/19 11:30 01/21/19 11:27 100 MLS/HR Dextrose (Dextrose 50%-Water Syringe) 12.5 gm PRN Q15MIN PRN 01/20/19 20:15 Digoxin (Lanoxin) 250 mcg 1X ONCE 01/21/19 10:15 01/21/19 10:18 DC 01/21/19 11:33 250 MCG Diphenhydramine HCl (Benadryl) 25 mg PRN Q6HRS PRN 01/20/19 20:15 Dopamine HCl/ Dextrose 250 ml @ 6.055 mls/ hr CONT PRN 01/20/19 23:30 01/21/19 10:13 DC 01/21/19 00:10 6.055 MLS/HR Fentanyl Citrate (Fentanyl 2ml Vial) 50 mcg PRN Q1HR PRN 01/20/19 20:15 Glycopyrrolate (Robinul) 1 mg STK-MED ONCE 01/20/19 18:43 01/20/19 18:44 DC Hydromorphone HCl (Dilaudid) 0.5 mg PRN Q10MIN PRN 01/20/19 07:00 01/20/19 23:00 DC Insulin Human Lispro (HumaLOG VIAL for OP,RR ONLY) 0-10 units PRN Q1HR PRN 01/20/19 16:30 01/20/19 23:00 DC Insulin Human Lispro (HumaLOG) 0-7 UNITS TIDWMEALS 01/21/19 08:00 Labetalol HCl (Normodyne Iv Push) 10 mg 1X ONCE 01/20/19 20:15 01/20/19 20:17 DC 01/20/19 20:14 10 MG Levothyroxine Sodium (Synthroid) 125 mcg DAILYAC 01/22/19 07:30 Lidocaine HCl (Lidocaine Pf 2% Vial) 5 ml STK-MED ONCE 01/20/19 17:43 01/20/19 17:43 DC Magnesium Hydroxide (Milk Of Magnesia) 2,400 mg 1X PRN PRN 01/21/19 06:00 01/22/19 05:59 DC Magnesium Sulfate/ Dextrose 100 ml @ 100 mls/hr 1X ONCE 01/21/19 11:00 01/21/19 11:59 DC 01/21/19 11:33 100 MLS/HR Metoclopramide HCl (Reglan Vial) 10 mg PRN Q4HRS PRN 01/20/19 20:15 Morphine Sulfate (Morphine Sulfate) 4 mg PRN Q1HR PRN 01/20/19 20:15 Morphine Sulfate 5 mg/Ketorolac Tromethamine 30 mg/Ropivacaine 60 ml/Epinephrine HCl 0.5 mg/Sodium Chloride 100 ml @ 100 mls/hr 1X ONCE 01/20/19 06:00 01/20/19 06:59 DC Multivitamins (Thera M Plus) 1 tab DAILY 01/21/19 09:00 01/21/19 08:41 1 TAB Neostigmine Methylsulfate (Neostigmine Methylsulfate) 5 mg STK-MED ONCE 01/20/19 18:44 01/20/19 18:44 DC Ondansetron HCl (Zofran Odt) 4 mg PRN Q6HRS PRN 01/21/19 12:00 Ondansetron HCl (Zofran) 4 mg PRN Q6HRS PRN 01/21/19 12:00 Oxycodone/ Acetaminophen (Percocet 5/325) 2 tab PRN Q4HRS PRN 01/20/19 20:30 01/21/19 16:38 2 TAB Phenylephrine HCl (PHENYLEPHRINE in 0.9% NACL PF) 1 mg STK-MED ONCE 01/20/19 17:51 01/20/19 17:51 DC Piperacillin Sod/ Tazobactam Sod 3.375 gm/Sodium Chloride 50 ml @ 100 mls/hr Q6HRS 01/21/19 12:00 01/22/19 05:48 100 MLS/HR Prochlorperazine Edisylate (Compazine) 5 mg PACU PRN PRN 01/20/19 07:00 01/20/19 23:00 DC Prochlorperazine Maleate (Compazine) 10 mg PRN Q4HRS PRN 01/20/19 20:15 Propofol 20 ml @ As Directed STK-MED ONCE 01/20/19 17:43 01/20/19 17:43 DC Ringer's Solution 1,000 ml @ 30 mls/hr Q24H 01/20/19 07:00 01/20/19 18:59 DC 01/20/19 14:50 30 MLS/HR Rocuronium [place] (Zemuron) 50 mg STK-MED ONCE 01/20/19 17:43 01/20/19 17:43 DC Senna/Docusate Sodium (Senna Plus) 1 tab DAILY 01/21/19 09:00 01/21/19 08:41 1 TAB Sevoflurane (Ultane) 90 ml STK-MED ONCE 01/20/19 19:26 01/20/19 19:27 DC Sodium Chloride 1,000 ml @ 150 mls/hr Q6H40M 01/20/19 23:30 01/21/19 10:13 DC 01/21/19 07:30 150 MLS/HR Sodium Chloride (Normal Saline Flush) 10 ml QSHIFT PRN 01/20/19 20:15 Tobramycin Sulfate (Tobramycin Powder) 1.2 gm STK-MED ONCE 01/20/19 14:53 01/20/19 14:53 DC Tranexamic Acid 1000 mg/Sodium Chloride 60 ml @ 60 mls/hr 1X PERIOP ONCE 01/20/19 08:00 01/20/19 08:59 DC 01/20/19 19:07 60 MLS/HR Vancomycin HCl (Vancomycin) 2 gm STK-MED ONCE 01/20/19 15:06 01/20/19 15:06 DC 01/20/19 18:25 1 GM Vancomycin HCl 1 gm/Sodium Chloride 250 ml @ 250 mls/hr 1X ONCE 01/21/19 03:00 01/21/19 03:59 DC 01/21/19 02:58 250 MLS/HR Zolpidem Tartrate (Ambien) 5 mg PRN QHS PRN 01/20/19 20:15 01/21/19 06:04 DC Labs: Lab Laboratory Tests Test 01/21/19 08:40 01/21/19 08:46 01/21/19 11:56 01/21/19 16:42 White Blood Count 6.1 x10^3/uL (4.0-11.0) Red Blood Count 1.99 x10^6/uL (4.30-5.70) Hemoglobin 7.2 g/dL (13.0-17.5) Hematocrit 21.4 % (39.0-53.0) Mean Corpuscular Volume 108 fL (79-100) Mean Corpuscular Hemoglobin 36 pg (25-35) Mean Corpuscular Hemoglobin Concent 34 g/dL (31-37) Red Cell Distribution Width 17.3 % (11.5-14.5) Platelet Count 210 x10^3/uL (140-400) Sodium Level 129 mmol/L (136-145) Potassium Level 4.7 mmol/L (3.5-5.1) Chloride Level 96 mmol/L (98-107) Carbon Dioxide Level 22 mmol/L (21-32) Anion Gap 11 (6-14) Blood Urea Nitrogen 20 mg/dL (8-26) Creatinine 1.6 mg/dL (0.7-1.3) Estimated GFR (Cockcroft-Gault) 42.5 Glucose Level 181 mg/dL (70-99) Hemoglobin A1c 6.5 % (4.8-5.6) Calcium Level 7.5 mg/dL (8.5-10.1) Magnesium Level 1.7 mg/dL (1.8-2.4) Thyroid Stimulating Hormone (TSH) 4.218 uIU/mL (0.358-3.74) Glucose (Fingerstick) 166 mg/dL (70-99) 203 mg/dL (70-99) 191 mg/dL (70-99) Test 01/21/19 20:19 01/22/19 07:07 Glucose (Fingerstick) 260 mg/dL (70-99) 145 mg/dL (70-99) Objective: Assessment: 1. Status post right knee incision and drainage and revision of polyethylene (1 component) of total knee arthroplasty. 01/20 for possible PJI 2. Status post recent total knee arthroplasty 12/30/2018. 3. Atrial fibrillation with rapid ventricular response. 4. Anemia. 5. Leukopenia. 6. Diabetes mellitus. 7. Acute kidney injury. 8. Atrial fibrillation. 9. RLE nonhealing wound around the munoz Plan: Plan of Care Continue daptomycin 6 mg per kg daily. may need adjustment according to renal function. cont Zosyn Follow up intraoperative cultures. Follow up labs and cultures in a.m. Continue local wound care per Ortho. PT and OT per Ortho. JIHAN SANTANA MD Jan 22, 2019 08:41
[2019-01-22] MEDS: ASPIRIN ENTERIC COATED 81 MG TABLET.DR. PO SCH (08:47)
[2019-01-22] MEDS: LEVOTHYROXINE 125 MCG TABLET PO SCH (08:48)
[2019-01-22] MEDS: SENNOSIDES/DOCUSATE 8.6/50MG TABLET. PO SCH (08:48)
[2019-01-22] MEDS: oxyCODONE/APAP 5/325 1 TAB TABLET PO PRN ×3 (08:48→22:49)
[2019-01-22] MEDS: MULTIVITAMIN with MINERAL TABLET. PO SCH (08:48)
--- NOTE | 2019-01-22 09:00 | PDOC ---
Provider Note Provider Note dictated WERNER WANG MD Jan 22, 2019 09:00
[2019-01-22 09:57] LABS: HEMATOCRIT 24.5 % (39.0-53.0); HEMOGLOBIN 8.4 g/dL (13.0-17.5)
[2019-01-22] MEDS ORDERED: LOSARTAN POTASSIUM 25 MG TABLET. PO SCH (10:00)
--- NOTE | 2019-01-22 10:16 | CONS ---
DATE OF CONSULTATION: 01/22/2019 CHIEF COMPLAINT: Irregular heartbeat. HISTORY OF PRESENT ILLNESS: The patient was readmitted 2 days prior to consultation for revision of his right knee replacement because of some question of infection and is on Cubicin now per ID. He had some atrial fibrillation preexisting to the surgery and apparently had a bit of the fast rate in the hospital and I and Dr. Bates were consulted. He was on Xarelto as an outpatient and stopped this medicine preoperatively and remains off it now. He feels well at this time with no other specific symptoms. Echocardiogram done in 09/2018 was unremarkable. The etiology of the atrial fibrillation is not clear at this time. He is also a diet-controlled diabetic. Last hemoglobin A1c 2 months ago was 6.5 and he has been off oral glimepiride for about 1 year as he has lost weight and has good control, otherwise. PAST MEDICAL HISTORY: All documented in the old record. MEDICATIONS: He takes thyroid medication, losartan and hydrochlorothiazide at home. ALLERGIES: No allergies are known. SOCIAL HISTORY: , not employed, nonsmoker, nondrinker. FAMILY HISTORY: Unremarkable. REVIEW OF SYSTEMS: No other complaints. OBJECTIVE: ENT: All within normal limits. NECK: No masses, nodes or bruits. LUNGS: Clear. CARDIOVASCULAR: Irregular rate, rate in 80s-90s, atrial fibrillation on the monitor. ABDOMEN: Soft, benign and nontender. EXTREMITIES: The right knee is a case in a large dressing. Good pedal pulses. No joint or skin lesions. NEUROLOGIC: Physiologic. ASSESSMENT: 1. Status post right knee replacement revision for possible infection. Culture is pending. 2. History of atrial fibrillation, idiopathic. CHADS2 put him in the range of 2-3. 3. Mild type 2 diabetic, controlled, off medication. PLAN: We will follow with you. WERNER WANG MD DR: LALO/candie JOB#: [id number] / [id number]
[2019-01-22 10:21] LABS: ALBUMIN 2.6 g/dL (3.4-5.0); ALBUMIN/GLOBULIN RATIO 0.6 (1.0-1.7); CALCIUM 8.3 mg/dL (8.5-10.1); CREATININE 1.4 mg/dL (0.7-1.3); GFR 49.5; POTASSIUM 4.8 mmol/L (3.5-5.1); TOTAL BILIRUBIN 1.6 mg/dL (0.2-1.0); TOTAL PROTEIN 6.8 g/dL (6.4-8.2)
--- NOTE | 2019-01-22 10:52 | NUR ---
SS following up with discharge planning. Pt was previously on services with outpatient PT/OT at [facility]. Pt also has a walker through [facility]. PT/OT recommended home with home healthcare or home with outpatient. Nurse navigator meeting with pt to discuss home healthcare and home healthcare options. SS will continue to follow for discharge planning.
[2019-01-22 11:00] VITALS: BP 103/64
[2019-01-22] MEDS: PANTOPRAZOLE 40 MG TABLET.DR. PO SCH (11:14)
[2019-01-22] MEDS: FERROUS SULFATE 325 MG TABLET. PO SCH (11:16)
[2019-01-22] MEDS: DAPTOmycin (GENERIC) IVPB 480 MG in IV NORMAL SALINE 50ML 50 ML IV SCH (11:16)
--- NOTE | 2019-01-22 11:30 | PDOC ---
GILLES CABRERA HAND LASTER 01/22/19 1130: CARDIO Progress Notes Date and Time Date of Service 01/22/2019 Time of Evaluation 0950 Subjective Subjective: No Chest Pain, No shortness of breath, No Palpitations, Other (tolerating increased activity; surgical pain controlled) Vitals Vitals Vital Signs Date Time Temp Pulse Resp B/P (MAP) Pulse Ox O2 Delivery O2 Flow Rate FiO2 01/22/19 08:00 Room Air 1.5 01/22/19 07:00 98.4 94 16 122/65 (84) 99 98.4 Weight Weight [ ] Input and Output Intake and Output Intake and Output 01/22/19 07:00 Intake Total 1145 ml Output Total 1775 ml Balance -630 ml Intake Oral 855 ml IV Total 290 ml Output Urine Total 1775 ml # Voids 1 Laboratory Labs Laboratory Tests Test 01/21/19 11:56 01/21/19 16:42 01/21/19 20:19 01/22/19 07:07 Glucose (Fingerstick) 203 mg/dL (70-99) 191 mg/dL (70-99) 260 mg/dL (70-99) 145 mg/dL (70-99) Test 01/22/19 08:55 Hemoglobin 8.4 g/dL (13.0-17.5) Hematocrit 24.5 % (39.0-53.0) Mean Corpuscular Hemoglobin Concent 34 g/dL (31-37) Sodium Level 131 mmol/L (136-145) Potassium Level 4.8 mmol/L (3.5-5.1) Chloride Level 98 mmol/L (98-107) Carbon Dioxide Level 26 mmol/L (21-32) Anion Gap 7 (6-14) Blood Urea Nitrogen 20 mg/dL (8-26) Creatinine 1.4 mg/dL (0.7-1.3) Estimated GFR (Cockcroft-Gault) 49.5 BUN/Creatinine Ratio 14 (6-20) Glucose Level 181 mg/dL (70-99) Calcium Level 8.3 mg/dL (8.5-10.1) Total Bilirubin 1.6 mg/dL (0.2-1.0) Aspartate Amino Transf (AST/SGOT) 41 U/L (15-37) Alanine Aminotransferase (ALT/SGPT) 15 U/L (16-63) Alkaline Phosphatase 123 U/L (46-116) Total Protein 6.8 g/dL (6.4-8.2) Albumin 2.6 g/dL (3.4-5.0) Albumin/Globulin Ratio 0.6 (1.0-1.7) Microbiology Micro Microbiology 01/21/19 Blood Culture - Preliminary, Resulted NO GROWTH AFTER 1 DAY Physical Exam HEENT: Neck Supple W Full Motion Chest: Symmetric LUNGS: Other (diminished bases) Heart: irregularly irregular (AFIB) Abdomen: Soft N/T Extremities: No Calf Tenderness, Other (1+ bilateral LE pitting edema; right knee surgical incision dressing intact with small amount of serosanguinous drain shadowing) Neurology: alert, oriented, follow commands Assessment Assessment 1. S/P right knee revision: POD#2 2. AFIB RVR: chronic vs paroxysmal. improving 3. Postoperative anemia: Hgb 8.4 post 1U transfusion 4. Hypotension: now normalized 5. DM2: with hx of damaged pancreas A1C 6.5. Defer to PCP 6. Hypothyroidism: TSH not on goal, defer to PCP 7. Macrocytic anemia: underlying liver issues? Defer to PCP Recommendations 1. Push PO fluids. Start on metoprolol and monitor BP trend 2. Xarelto on hold due to previous hx of continued knee oozing post RTKA ASA for now for stroke prevention and restart xarelto when cleared with ortho 3. AFIB new noted initially on . Outpt CVN once knee is healed and on consistent xarelto for at least 3 weeks 4. Follow up in office JULIO KHANNA MD 01/22/192026: CARDIO Progress Notes Assessment Assessment Patient seen and examined. Agree with ROTARY DRILL OPERATOR HELPER's assessment and plan. AF rate better controlled Resume anticoagulation when OK from Ortho standpoint and plan CVn in 3-4 weeks Follow up as scheduled GILLES CABRERA APRN Jan 22, 2019 11:30 JULIO KHANNA MD Jan 22, 2019 20:27
[2019-01-22] MEDS: METOPROLOL TART IMMED RELEASE 25 MG TABLET. PO SCH ×2 (12:13→21:22)
--- NOTE | 2019-01-22 12:32 | NUR ---
SS following up with discharge planning. Pt agreeable to home healthcare with [facility], ; fax [phone], at discharge. SS will continue to follow for discharge planning.
[2019-01-22 15:00] VITALS: BP 118/63
[2019-01-22 19:51] VITALS: BP 131/70
[2019-01-22 23:35] VITALS: BP 110/66
[2019-01-23] MEDS: PIPERACILLIN/TAZOBACTAM 3.375 GM in IV NORMAL SALINE 50ML 50 ML IV SCH ×5 (00:14→23:44)
[2019-01-23 03:03] VITALS: BP 126/79
[2019-01-23 04:12] LABS: BASO % 1 % (0-3); EOS % 1 % (0-3); HEMATOCRIT 22.1 % (39.0-53.0); HEMOGLOBIN 7.6 g/dL (13.0-17.5); LYMPH # 0.4 x10^3/uL (1.0-4.8); LYMPH % 14 % (24-48); MEAN CORPUSCULAR HEMOGLOBIN 35 pg (25-35); MEAN CORPUSCULAR HGB CONC 34 g/dL (31-37); MEAN CORPUSCULAR VOLUME 102 fL (79-100); MONO # 0.3 x10^3/uL (0.0-1.1); MONO % 10 % (0-9); NEUT # 2.2 x10^3/uL (1.8-7.7); NEUT % 73 % (31-73); PLATELET COUNT 192 x10^3/uL (140-400); RED BLOOD COUNT 2.16 x10^6/uL (4.30-5.70); RED CELL DISTRIBUTION WIDTH 19.4 % (11.5-14.5)
[2019-01-23 04:31] LABS: ALBUMIN 2.5 g/dL (3.4-5.0); ALBUMIN/GLOBULIN RATIO 0.6 (1.0-1.7); CALCIUM 8.4 mg/dL (8.5-10.1); CREATININE 1.4 mg/dL (0.7-1.3); GFR 49.5; POTASSIUM 4.7 mmol/L (3.5-5.1); TOTAL BILIRUBIN 0.9 mg/dL (0.2-1.0); TOTAL PROTEIN 6.5 g/dL (6.4-8.2)
[2019-01-23 07:19] VITALS: BP 138/62
[2019-01-23] MEDS: INSULIN LISPRO 300 UNITS/3 ML VIAL. SQ SCH ×3 (08:00→17:00)
[2019-01-23] MEDS: LEVOTHYROXINE 125 MCG TABLET PO SCH (08:01)
[2019-01-23] MEDS: PANTOPRAZOLE 40 MG TABLET.DR. PO SCH (08:01)
[2019-01-23] MEDS: SENNOSIDES/DOCUSATE 8.6/50MG TABLET. PO SCH (08:02)
[2019-01-23] MEDS: MULTIVITAMIN with MINERAL TABLET. PO SCH (08:02)
[2019-01-23] MEDS: METOPROLOL TART IMMED RELEASE 25 MG TABLET. PO SCH ×2 (08:02→20:53)
[2019-01-23] MEDS: ASPIRIN ENTERIC COATED 81 MG TABLET.DR. PO SCH (08:03)
[2019-01-23] MEDS: CYANOCOBALAMIN (VITAMIN B-12) 1,000 MCG TABLET. PO SCH (08:03)
[2019-01-23] MEDS: FERROUS SULFATE 325 MG TABLET. PO SCH (08:03)
--- NOTE | 2019-01-23 08:49 | PDOC ---
Provider Note Provider Note feels ok, no new sxs- note of high MCV, anemia and lower wbc, ? duration- will check BRUCE/ B12 , may need heme eval if progresses- cv status good WERNER WANG MD Jan 23, 2019 08:48
--- NOTE | 2019-01-23 08:57 | PDOC ---
Infectious Disease Note Subjective: Subjective Pt says feels ok postop pain is under control no f/c/n/v/d/abdo pain/sob Vital Signs: Vital Signs Vital Signs Date Time Temp Pulse Resp B/P (MAP) Pulse Ox O2 Delivery O2 Flow Rate FiO2 01/23/19 08:02 93 138/62 01/23/19 07:19 98.6 18 94 Room Air 98.6 01/22/19 08:00 1.5 Physical Exam: PHYSICAL EXAM GENERAL: Alert, oriented x 3, well-nourished, well-developed male in no acute distress, nontoxic appearing. HEENT: Normocephalic, atraumatic, anicteric. No thrush. NECK: Supple, no JVD. LUNGS: Clear bilaterally. No wheezing. HEART: S1, S2 irregular, no murmurs. ABDOMEN: Soft, nontender, no rebound. EXTREMITIES: Right lower extremity in dressing intact, not taken down. NEUROLOGIC: Alert and oriented x 3, grossly nonfocal. PSYCHIATRIC: Cooperative, appropriate mood and affect. DERMATOLOGIC: Warm, dry. No generalized rash. Medications: Inpatient Meds: Current Medications Medications (Trade) Dose Ordered Sig/Nicole Start Time Stop Time Status Last Admin Dose Admin Acetaminophen (Tylenol) 1,000 mg 1X PREOP PRN 01/20/19 06:00 01/20/19 18:00 DC 01/20/19 14:49 1,000 MG Aspirin (Ecotrin) 81 mg DAILYWBKFT 01/21/19 08:00 01/23/19 08:03 81 MG Bisacodyl (Dulcolax Supp) 10 mg 1X PRN PRN 01/21/19 16:00 01/22/19 15:59 DC Calcium Carbonate/ Glycine (Tums) 500 mg PRN QID PRN 01/20/19 20:15 Cefazolin Sodium/ Dextrose (Ancef 2gm Premix) 2 gm STK-MED ONCE 01/20/19 07:00 01/21/19 12:24 DC Cyanocobalamin (Vitamin B-12) 500 mcg 3X/WEEK 01/23/19 09:00 01/23/19 08:03 500 MCG Daptomycin 480 mg/ Sodium Chloride 50 ml @ 100 mls/hr Q24H 01/21/19 11:30 01/22/19 11:16 100 MLS/HR Dextrose (Dextrose 50%-Water Syringe) 12.5 gm PRN Q15MIN PRN 01/20/19 20:15 Digoxin (Lanoxin) 250 mcg 1X ONCE 01/21/19 10:15 01/21/19 10:18 DC 01/21/19 11:33 250 MCG Diphenhydramine HCl (Benadryl) 25 mg PRN Q6HRS PRN 01/20/19 20:15 Dopamine HCl/ Dextrose 250 ml @ 6.055 mls/ hr CONT PRN 01/20/19 23:30 01/21/19 10:13 DC 01/21/19 00:10 6.055 MLS/HR Fentanyl Citrate (Fentanyl 2ml Vial) 50 mcg PRN Q1HR PRN 01/20/19 20:15 Ferrous Sulfate (Feosol) 325 mg DAILY08 01/22/19 11:00 01/23/19 08:03 325 MG Glycopyrrolate (Robinul) 1 mg STK-MED ONCE 01/20/19 18:43 01/20/19 18:44 DC Hydromorphone HCl (Dilaudid) 0.5 mg PRN Q10MIN PRN 01/20/19 07:00 01/20/19 23:00 DC Insulin Human Lispro (HumaLOG VIAL for OP,RR ONLY) 0-10 units PRN Q1HR PRN 01/20/19 16:30 01/20/19 23:00 DC Insulin Human Lispro (HumaLOG) 0-7 UNITS TIDWMEALS 01/21/19 08:00 01/22/19 17:42 3 UNITS Labetalol HCl (Normodyne Iv Push) 10 mg 1X ONCE 01/20/19 20:15 01/20/19 20:17 DC 01/20/19 20:14 10 MG Levothyroxine Sodium (Synthroid) 125 mcg DAILYAC 01/22/19 07:30 01/23/19 08:01 125 MCG Lidocaine HCl (Lidocaine Pf 2% Vial) 5 ml STK-MED ONCE 01/20/19 17:43 01/20/19 17:43 DC Losartan Potassium (Cozaar) 25 mg DAILY 01/22/19 10:00 01/22/19 11:27 DC Magnesium Hydroxide (Milk Of Magnesia) 2,400 mg 1X PRN PRN 01/21/19 06:00 01/22/19 05:59 DC Magnesium Sulfate/ Dextrose 100 ml @ 100 mls/hr 1X ONCE 01/21/19 11:00 01/21/19 11:59 DC 01/21/19 11:33 100 MLS/HR Metoclopramide HCl (Reglan Vial) 10 mg PRN Q4HRS PRN 01/20/19 20:15 Metoprolol Tartrate (Lopressor) 25 mg BID 01/22/19 11:15 01/23/19 08:02 25 MG Morphine Sulfate (Morphine Sulfate) 4 mg PRN Q1HR PRN 01/20/19 20:15 Morphine Sulfate 5 mg/Ketorolac Tromethamine 30 mg/Ropivacaine 60 ml/Epinephrine HCl 0.5 mg/Sodium Chloride 100 ml @ 100 mls/hr 1X ONCE 01/20/19 06:00 01/20/19 06:59 DC Multivitamins (Thera M Plus) 1 tab DAILY 01/21/19 09:00 01/23/19 08:02 1 TAB Neostigmine Methylsulfate (Neostigmine Methylsulfate) 5 mg STK-MED ONCE 01/20/19 18:44 01/20/19 18:44 DC Ondansetron HCl (Zofran Odt) 4 mg PRN Q6HRS PRN 01/21/19 12:00 Ondansetron HCl (Zofran) 4 mg PRN Q6HRS PRN 01/21/19 12:00 Oxycodone/ Acetaminophen (Percocet 5/325) 2 tab PRN Q4HRS PRN 01/20/19 20:30 01/21/19 16:38 2 TAB Pantoprazole Sodium (Protonix) 40 mg DAILYAC 01/22/19 10:00 01/23/19 08:01 40 MG Phenylephrine HCl (PHENYLEPHRINE in 0.9% NACL PF) 1 mg STK-MED ONCE 01/20/19 17:51 01/20/19 17:51 DC Piperacillin Sod/ Tazobactam Sod 3.375 gm/Sodium Chloride 50 ml @ 100 mls/hr Q6HRS 01/21/19 12:00 01/23/19 05:46 100 MLS/HR Prochlorperazine Edisylate (Compazine) 5 mg PACU PRN PRN 01/20/19 07:00 01/20/19 23:00 DC Prochlorperazine Maleate (Compazine) 10 mg PRN Q4HRS PRN 01/20/19 20:15 Propofol 20 ml @ As Directed STK-MED ONCE 01/20/19 17:43 01/20/19 17:43 DC Ringer's Solution 1,000 ml @ 30 mls/hr Q24H 01/20/19 07:00 01/20/19 18:59 DC 01/20/19 14:50 30 MLS/HR Rocuronium [place] (Zemuron) 50 mg STK-MED ONCE 01/20/19 17:43 01/20/19 17:43 DC Senna/Docusate Sodium (Senna Plus) 1 tab DAILY 01/21/19 09:00 01/23/19 08:02 1 TAB Sevoflurane (Ultane) 90 ml STK-MED ONCE 01/20/19 19:26 01/20/19 19:27 DC Sodium Chloride 1,000 ml @ 150 mls/hr Q6H40M 01/20/19 23:30 01/21/19 10:13 DC 01/21/19 07:30 150 MLS/HR Sodium Chloride (Normal Saline Flush) 10 ml QSHIFT PRN 01/20/19 20:15 Tobramycin Sulfate (Tobramycin Powder) 1.2 gm STK-MED ONCE 01/20/19 14:53 01/20/19 14:53 DC Tranexamic Acid 1000 mg/Sodium Chloride 60 ml @ 60 mls/hr 1X PERIOP ONCE 01/20/19 08:00 01/20/19 08:59 DC 01/20/19 19:07 60 MLS/HR Vancomycin HCl (Vancomycin) 2 gm STK-MED ONCE 01/20/19 15:06 01/20/19 15:06 DC 01/20/19 18:25 1 GM Vancomycin HCl 1 gm/Sodium Chloride 250 ml @ 250 mls/hr 1X ONCE 01/21/19 03:00 01/21/19 03:59 DC 01/21/19 02:58 250 MLS/HR Zolpidem Tartrate (Ambien) 5 mg PRN QHS PRN 01/20/19 20:15 01/21/19 06:04 DC Labs: Lab Laboratory Tests Test 01/22/19 11:42 01/22/19 16:37 01/22/19 22:51 01/23/19 03:30 Glucose (Fingerstick) 213 mg/dL (70-99) 175 mg/dL (70-99) 199 mg/dL (70-99) White Blood Count 3.0 x10^3/uL (4.0-11.0) Red Blood Count 2.16 x10^6/uL (4.30-5.70) Hemoglobin 7.6 g/dL (13.0-17.5) Hematocrit 22.1 % (39.0-53.0) Mean Corpuscular Volume 102 fL (79-100) Mean Corpuscular Hemoglobin 35 pg (25-35) Mean Corpuscular Hemoglobin Concent 34 g/dL (31-37) Red Cell Distribution Width 19.4 % (11.5-14.5) Platelet Count 192 x10^3/uL (140-400) Neutrophils (%) (Auto) 73 % (31-73) Lymphocytes (%) (Auto) 14 % (24-48) Monocytes (%) (Auto) 10 % (0-9) Eosinophils (%) (Auto) 1 % (0-3) Basophils (%) (Auto) 1 % (0-3) Neutrophils # (Auto) 2.2 x10^3/uL (1.8-7.7) Lymphocytes # (Auto) 0.4 x10^3/uL (1.0-4.8) Monocytes # (Auto) 0.3 x10^3/uL (0.0-1.1) Eosinophils # (Auto) 0.0 x10^3/uL (0.0-0.7) Basophils # (Auto) 0.0 x10^3/uL (0.0-0.2) Sodium Level 134 mmol/L (136-145) Potassium Level 4.7 mmol/L (3.5-5.1) Chloride Level 101 mmol/L (98-107) Carbon Dioxide Level 24 mmol/L (21-32) Anion Gap 9 (6-14) Blood Urea Nitrogen 15 mg/dL (8-26) Creatinine 1.4 mg/dL (0.7-1.3) Estimated GFR (Cockcroft-Gault) 49.5 BUN/Creatinine Ratio 11 (6-20) Glucose Level 148 mg/dL (70-99) Calcium Level 8.4 mg/dL (8.5-10.1) Total Bilirubin 0.9 mg/dL (0.2-1.0) Aspartate Amino Transf (AST/SGOT) 29 U/L (15-37) Alanine Aminotransferase (ALT/SGPT) 11 U/L (16-63) Alkaline Phosphatase 116 U/L (46-116) Total Protein 6.5 g/dL (6.4-8.2) Albumin 2.5 g/dL (3.4-5.0) Albumin/Globulin Ratio 0.6 (1.0-1.7) Test 01/23/19 07:22 Glucose (Fingerstick) 150 mg/dL (70-99) Objective: Assessment: 1. Status post right knee incision and drainage and revision of polyethylene (1 component) of total knee arthroplasty. 01/20 for possible PJI 2. Status post recent total knee arthroplasty 12/30/2018. 3. Atrial fibrillation with rapid ventricular response. 4. Anemia. 5. Leukopenia. 6. Diabetes mellitus. 7. Acute kidney injury. 8. Atrial fibrillation. 9. RLE nonhealing wound around the munoz Plan: Plan of Care Continue daptomycin 6 mg per kg daily. may need adjustment according to renal function. cont Zosyn Follow up intraoperative cultures. Follow up labs Continue local wound care per Ortho. PT and OT per Ortho. JIHAN SANTANA MD Jan 23, 2019 08:57
[2019-01-23 10:58] VITALS: BP 120/72
[2019-01-23] MEDS: oxyCODONE/APAP 5/325 1 TAB TABLET PO PRN ×3 (12:15→21:43)
[2019-01-23] MEDS: DAPTOmycin (GENERIC) IVPB 480 MG in IV NORMAL SALINE 50ML 50 ML IV SCH (13:42)
[2019-01-23 14:26] VITALS: BP 120/76
--- NOTE | 2019-01-23 15:22 | PDOC1 ---
History and Physical Date of Admission Date of Admission 01/20/2019 History of Present Illness History of Present Illness The patient is a 74 year old man who had total knee arthroplasty three weeks ago today. He was seen in the office last week, and Synovasure testing was performed. I saw him in the office yesterday and review those results with him which showed white blood cell count greater than 3000, greater than 90% polymorp honuclear leukocytes, and the Alpha Defensin testing was positive. I suspect there is early postoperative infection of his total knee arthroplasty. We discussed his individual risk factors such as diabetes. The patient and I discussed the risks, benefits and alternatives of further surgery. I recommended irrigation and debridement with polyethylene exchange. We discussed potential need to proceed with complete excision of the total knee arthroplasty including the metal components in the future. Due to the recent onset of infection, the irrigation and debridement with polyethylene exchange, which is a lesser surgery, is likely to be effective and is the standard of care, but is not guaranteed as we discussed. The risks of this surgery include ongoing infection which might require excision of the total knee. Other risks include bleeding, scarring, stiffness, blood clots, or other potential surgical or anesthetic complications. Past Medical History Cardiovascular: AFIB, HTN GI: Other (bowel perforation) Heme/Onc: No pertinent hx Hepatobiliary: No pertinent hx Musculoskeletal: Osteoarthritis, Other (right knee cellulitis) Renal/: No pertinent hx Endocrine: Diabetes (2 diet controlled), Hypothyroidism Dermatology: No pertinent hx Past Surgical History Past Surgical History: Cholecystectomy, Hernia Repair (left inguinal), Total knee replacement (right), Other (Abdominal exploratory laparotomy) Family History Family History: Stroke (father) Social History Smoke: Quit (1986 22pk yr) ALCOHOL: none Drugs: None Current Medications Current Medications Current Medications Morphine Sulfate 5 mg/Ketorolac Tromethamine 30 mg/Ropivacaine 60 ml/Epinephrine HCl 0.5 mg/Sodium Chloride 100 ml @ 100 mls/hr 1X ONCE INT ART ; Start 01/20/19 at 06:00; Stop 01/20/19 at 06:59; Status DC Ondansetron HCl (Zofran) 4 mg PRN Q6HRS PRN IV NAUSEA/VOMITING; Start 01/20/19 at 07:00; Stop 01/20/19 at 23:00; Status DC Fentanyl Citrate (Fentanyl 2ml Vial) 25 mcg PRN Q5MIN PRN IV MILD PAIN 1-3; Start 01/20/19 at 07:00; Stop 01/20/19 at 23:00; Status DC Fentanyl Citrate (Fentanyl 2ml Vial) 50 mcg PRN Q5MIN PRN IV MODERATE TO SEVERE PAIN; Start 01/20/19 at 07:00; Stop 01/20/19 at 23:00; Status DC Morphine Sulfate (Morphine Sulfate) 1 mg PRN Q10MIN PRN IV SEVERE PAIN 7-10; Start 01/20/19 at 07:00; Stop 01/20/19 at 23:00; Status DC Ringer's Solution 1,000 ml @ 30 mls/hr Q24H IV Last administered on 01/20/19at 14:50; Start 01/20/19 at 07:00; Stop 01/20/19 at 18:59; Status DC Hydromorphone HCl (Dilaudid) 0.5 mg PRN Q10MIN PRN IV SEV PAIN, Second choice; Start 01/20/19 at 07:00; Stop 01/20/19 at 23:00; Status DC Prochlorperazine Edisylate (Compazine) 5 mg PACU PRN PRN IV NAUSEA, MRX1; Start 01/20/19 at 07:00; Stop 01/20/19 at 23:00; Status DC Acetaminophen (Tylenol) 1,000 mg 1X PREOP PRN PO PRIOR TO PROCEDURE Last administered on 01/20/19at 14:49; Start 01/20/19 at 06:00; Stop 01/20/19 at 18:00; Status DC Cefazolin Sodium/ Dextrose 50 ml @ 100 mls/hr 1X PREOP PRN IV PRIOR TO PROCEDURE; Start 01/20/19 at 06:00; Stop 01/20/19 at 18:00; Status DC Tranexamic Acid 1000 mg/Sodium Chloride 60 ml @ 60 mls/hr 1X PERIOP ONCE INJ Last administered on 01/20/19at 18:05; Start 01/20/19 at 06:00; Stop 01/20/19 at 06:59; Status DC Tranexamic Acid 1000 mg/Sodium Chloride 60 ml @ 60 mls/hr 1X PERIOP ONCE INJ Last administered on 01/20/19at 19:07; Start 01/20/19 at 08:00; Stop 01/20/19 at 08:59; Status DC Tobramycin Sulfate (Tobramycin Powder) 1.2 gm STK-MED ONCE .ROUTE ; Start 01/20/19 at 14:53; Stop 01/20/19 at 14:53; Status DC Vancomycin HCl (Vancomycin) 2 gm STK-MED ONCE .ROUTE Last administered on 01/20/19at 18:25; Start 01/20/19 at 15:06; Stop 01/20/19 at 15:06; Status DC Insulin Human Lispro (HumaLOG VIAL for OP,RR ONLY) 0-10 units PRN Q1HR PRN SQ PER PROTOCOL; Start 01/20/19 at 16:30; Stop 01/20/19 at 23:00; Status DC Lidocaine HCl (Lidocaine Pf 2% Vial) 5 ml STK-MED ONCE .ROUTE ; Start 01/20/19 at 17:43; Stop 01/20/19 at 17:43; Status DC Propofol 20 ml @ As Directed STK-MED ONCE IV ; Start 01/20/19 at 17:43; Stop 01/20/19 at 17:43; Status DC Fentanyl Citrate (Fentanyl 2ml Vial) 100 mcg STK-MED ONCE .ROUTE ; Start 01/20/19 at 17:43; Stop 01/20/19 at 17:43; Status DC Rocuronium North Powder (Zemuron) 50 mg STK-MED ONCE .ROUTE ; Start 01/20/19 at 17:43; Stop 01/20/19 at 17:43; Status DC Phenylephrine HCl (PHENYLEPHRINE in 0.9% NACL PF) 1 mg STK-MED ONCE IV ; Start 01/20/19 at 17:51; Stop 01/20/19 at 17:51; Status DC Ondansetron HCl (Zofran) 4 mg STK-MED ONCE .ROUTE ; Start 01/20/19 at 18:43; Stop 01/20/19 at 18:43; Status DC Glycopyrrolate (Robinul) 1 mg STK-MED ONCE .ROUTE ; Start 01/20/19 at 18:43; Stop 01/20/19 at 18:44; Status DC Neostigmine Methylsulfate (Neostigmine Methylsulfate) 5 mg STK-MED ONCE .ROUTE ; Start 01/20/19 at 18:44; Stop 01/20/19 at 18:44; Status DC Sevoflurane (Ultane) 60 ml STK-MED ONCE IH ; Start 01/20/19 at 18:51; Stop 01/20/19 at 18:51; Status DC Sevoflurane (Ultane) 90 ml STK-MED ONCE IH ; Start 01/20/19 at 19:26; Stop 01/20/19 at 19:27; Status DC Labetalol HCl (Normodyne Iv Push) 10 mg 1X ONCE IVP Last administered on 01/20/19at 20:14; Start 01/20/19 at 20:15; Stop 01/20/19 at 20:17; Status DC Morphine Sulfate (Morphine Sulfate) 2 mg PRN Q1HR PRN IV PAIN MILD TO MOD; Start 01/20/19 at 20:15 Fentanyl Citrate (Fentanyl 2ml Vial) 25 mcg PRN Q1HR PRN IV PAIN, MILD TO MOD 2nd CHOICE Last administered on 01/21/19at 01:32; Start 01/20/19 at 20:15 Diphenhydramine HCl (Benadryl) 25 mg PRN Q6HRS PRN IV ITCHING; Start 01/20/19 at 20:15 Multivitamins (Thera M Plus) 1 tab DAILY PO Last administered on 01/23/19at 08:02; Start 01/21/19 at 09:00 Senna/Docusate Sodium (Senna Plus) 1 tab DAILY PO Last administered on 01/23/19at 08:02; Start 01/21/19 at 09:00 Sodium Chloride 1,000 ml @ 40 mls/hr Q24H IV ; Start 01/20/19 at 21:00; Stop 01/21/19 at 06:04; Status DC Vancomycin HCl 1 gm/Sodium Chloride 250 ml @ 250 mls/hr 1X ONCE IV Last administered on 01/21/19at 02:58; Start 01/21/19 at 03:00; Stop 01/21/19 at 03:59; Status DC Prochlorperazine Maleate (Compazine) 10 mg PRN Q4HRS PRN PO Nausea/vomiting, 2nd choice; Start 01/20/19 at 20:15 Metoclopramide HCl (Reglan Vial) 10 mg PRN Q4HRS PRN IV NAUSEA/VOMITING, 3rd CHOICE; Start 01/20/19 at 20:15 Magnesium Hydroxide (Milk Of Magnesia) 2,400 mg 1X PRN PRN PO CONSTIPATION; Start 01/21/19 at 06:00; Stop 01/22/19 at 05:59; Status DC Bisacodyl (Dulcolax Supp) 10 mg 1X PRN PRN DC CONSTIPATION; Start 01/21/19 at 16:00; Stop 01/22/19 at 15:59; Status DC Zolpidem Tartrate (Ambien) 5 mg PRN QHS PRN PO INSOMNIA, MAY REPEAT IN 1HR; Start 01/20/19 at 20:15; Stop 01/21/19 at 06:04; Status DC Calcium Carbonate/ Glycine (Tums) 500 mg PRN QID PRN PO INDIGESTION; Start 01/20/19 at 20:15 Morphine Sulfate (Morphine Sulfate) 4 mg PRN Q1HR PRN IV PAIN SEVERE; Start 01/20/19 at 20:15 Sodium Chloride (Normal Saline Flush) 10 ml QSHIFT PRN IV AFTER MEDS AND BLOOD DRAWS; Start 01/20/19 at 20:15 Fentanyl Citrate (Fentanyl 2ml Vial) 50 mcg PRN Q1HR PRN IV PAIN, SEVERE 2nd CHOICE; Start 01/20/19 at 20:15 Ondansetron HCl (Zofran) 4 mg Q6HRS IV ; Start 01/21/19 at 00:00; Stop 01/21/19 at 16:09; Status DC Ondansetron HCl (Zofran Odt) 4 mg Q6HRS PO ; Start 01/21/19 at 00:00; Stop 01/21/19 at 16:09; Status DC Ondansetron HCl (Zofran) 4 mg PRN Q6HRS PRN IV Nausea/vomiting, 1st choice; Start 01/21/19 at 12:00 Ondansetron HCl (Zofran Odt) 4 mg PRN Q6HRS PRN PO Nausea/vomiting, 1st choice; Start 01/21/19 at 12:00 Insulin Human Lispro (HumaLOG) 0-7 UNITS TIDWMEALS SQ Last administered on 01/23/19at 12:01; Start 01/21/19 at 08:00 Dextrose (Dextrose 50%-Water Syringe) 12.5 gm PRN Q15MIN PRN IV SEE COMMENTS; Start 01/20/19 at 20:15 Oxycodone/ Acetaminophen (Percocet 5/325) 1 tab PRN Q4HRS PRN PO PAIN MILD TO MOD Last administered on 01/23/19at 12:15; Start 01/20/19 at 20:15 Aspirin (Ecotrin) 81 mg DAILYWBKFT PO Last administered on 01/23/19 08:03; Start 01/21/19 at 08:00 Oxycodone/ Acetaminophen (Percocet 5/325) 2 tab PRN Q4HRS PRN PO PAIN SEVERE Last administered on 01/21/19 16:38; Start 01/20/19 at 20:30 Sodium Chloride 250 ml @ 250 mls/hr 1X ONCE IV Last administered on 01/20/19 23:39; Start 01/20/19 at 23:30; Stop 01/21/19 at 00:29; Status DC Sodium Chloride 1,000 ml @ 150 mls/hr Q6H40M IV Last administered on 01/21/19 07:30; Start 01/20/19 at 23:30; Stop 01/21/19 at 10:13; Status DC Dopamine HCl/ Dextrose 250 ml @ 6.055 mls/ hr CONT PRN IV SEE I/O RECORD Last administered on 01/21/19at 00:10; Start 01/20/19 at 23:30; Stop 01/21/19 at 10:13; Status DC Digoxin (Lanoxin) 250 mcg 1X ONCE PO Last administered on 01/21/19 11:33; Start 01/21/19 at 10:15; Stop 01/21/19 at 10:18; Status DC Magnesium Sulfate/ Dextrose 100 ml @ 100 mls/hr 1X ONCE IV Last administered on 01/21/19 11:33; Start 01/21/19 at 11:00; Stop 01/21/19 at 11:59; Status DC Daptomycin 480 mg/ Sodium Chloride 50 ml @ 100 mls/hr Q24H IV Last administered on 01/23/19at 13:42; Start 01/21/19 at 11:30 Piperacillin Sod/ Tazobactam Sod 3.375 gm/Sodium Chloride 50 ml @ 100 mls/hr Q6HRS IV Last administered on 01/23/19at 11:48; Start 01/21/19 at 12:00 Cefazolin Sodium/ Dextrose (Ancef 2gm Premix) 2 gm STK-MED ONCE IV ; Start 01/20/19 at 07:00; Stop 01/21/19 at 12:24; Status DC Levothyroxine Sodium (Synthroid) 125 mcg DAILYAC PO Last administered on 01/23/19at 08:01; Start 01/22/19 at 07:30 Ferrous Sulfate (Feosol) 325 mg DAILY08 PO Last administered on 01/23/19at 08:03; Start 01/22/19 at 11:00 Losartan Potassium (Cozaar) 25 mg DAILY PO ; Start 01/22/19 at 10:00; Stop 01/22/19 at 11:27; Status DC Cyanocobalamin (Vitamin B-12) 500 mcg 3X/WEEK PO Last administered on 01/23/19at 08:03; Start 01/23/19 at 09:00 Pantoprazole Sodium (Protonix) 40 mg DAILYAC PO Last administered on 01/23/19at 08:01; Start 01/22/19 at 10:00 Metoprolol Tartrate (Lopressor) 25 mg BID PO Last administered on 01/23/19at 08:02; Start 01/22/19 at 11:15 Active Scripts Active Percocet 5-325 Mg Tablet (Oxycodone/Acetaminophen) 1 Each Tablet 1-2 Tab PO PRN Q4HRS PRN MDD 12 tabs 14 Days Take 1-2 tablets by mouth every 4 hours as needed for pain. Reported Celebrex (Celecoxib) 200 Mg Capsule 200 Mg PO DAILY 30 Days Losartan Potassium 50 Mg Tablet 25 Mg PO DAILY Ferrous Sulfate 325 Mg Tablet 325 Mg PO DAILY Xarelto (Rivaroxaban) 20 Mg Tablet 20 Mg PO DAILY Omeprazole 40 Mg Capsule.dr 40 Mg PO DAILY Melatonin 3 Mg Tablet 5 Mg PO QHS Vitamin D3 (Cholecalciferol (Vitamin D3)) 1,000 Unit Tablet 1,000 Unit PO DAILY Levothyroxine Sodium 125 Mcg Tablet 125 Mcg PO DAILYAC Vitamin B-12 (Cyanocobalamin (Vitamin B-12)) 500 Mcg Tablet 500 Mcg PO 3X/WEEK Men's Multi-Vitamin (Multivitamin) 1 Each Tablet 1 Each PO DAILY Hydrochlorothiazide Capsule (Hydrochlorothiazide) 12.5 Mg Capsule 1 Cap PO DAILY Allergies Allergies: Coded Allergies: zolpidem (Verified Adverse Reaction, Mild, Hallucination, 01/21/19) Physical Exam General: Alert HEENT: Atraumatic Heart: RRR Abdomen: Soft Extremities: Other (knee incision slight erythema, some serous drainage. NVI but complains of knee pain getting worse not better.) Neuro: Normal speech, Sensation intact Psych/Mental Status: Mental status NL, Mood NL Vitals Vitals Vital Signs Date Time Temp Pulse Resp B/P (MAP) Pulse Ox O2 Delivery O2 Flow Rate FiO2 01/23/19 14:26 98.1 76 18 120/76 (91) 97 Room Air 98.1 01/22/19 08:00 1.5 Labs Labs Laboratory Tests Test 01/21/19 16:42 01/21/19 20:19 01/22/19 07:07 01/22/19 08:55 Glucose (Fingerstick) 191 mg/dL (70-99) 260 mg/dL (70-99) 145 mg/dL (70-99) Hemoglobin 8.4 g/dL (13.0-17.5) Hematocrit 24.5 % (39.0-53.0) Mean Corpuscular Hemoglobin Concent 34 g/dL (31-37) Sodium Level 131 mmol/L (136-145) Potassium Level 4.8 mmol/L (3.5-5.1) Chloride Level 98 mmol/L (98-107) Carbon Dioxide Level 26 mmol/L (21-32) Anion Gap 7 (6-14) Blood Urea Nitrogen 20 mg/dL (8-26) Creatinine 1.4 mg/dL (0.7-1.3) Estimated GFR (Cockcroft-Gault) 49.5 BUN/Creatinine Ratio 14 (6-20) Glucose Level 181 mg/dL (70-99) Calcium Level 8.3 mg/dL (8.5-10.1) Total Bilirubin 1.6 mg/dL (0.2-1.0) Aspartate Amino Transf (AST/SGOT) 41 U/L (15-37) Alanine Aminotransferase (ALT/SGPT) 15 U/L (16-63) Alkaline Phosphatase 123 U/L (46-116) Total Protein 6.8 g/dL (6.4-8.2) Albumin 2.6 g/dL (3.4-5.0) Albumin/Globulin Ratio 0.6 (1.0-1.7) Test 01/22/19 11:42 01/22/19 16:37 01/22/19 22:51 01/23/19 03:30 Glucose (Fingerstick) 213 mg/dL (70-99) 175 mg/dL (70-99) 199 mg/dL (70-99) White Blood Count 3.0 x10^3/uL (4.0-11.0) Red Blood Count 2.16 x10^6/uL (4.30-5.70) Hemoglobin 7.6 g/dL (13.0-17.5) Hematocrit 22.1 % (39.0-53.0) Mean Corpuscular Volume 102 fL (79-100) Mean Corpuscular Hemoglobin 35 pg (25-35) Mean Corpuscular Hemoglobin Concent 34 g/dL (31-37) Red Cell Distribution Width 19.4 % (11.5-14.5) Platelet Count 192 x10^3/uL (140-400) Neutrophils (%) (Auto) 73 % (31-73) Lymphocytes (%) (Auto) 14 % (24-48) Monocytes (%) (Auto) 10 % (0-9) Eosinophils (%) (Auto) 1 % (0-3) Basophils (%) (Auto) 1 % (0-3) Neutrophils # (Auto) 2.2 x10^3/uL (1.8-7.7) Lymphocytes # (Auto) 0.4 x10^3/uL (1.0-4.8) Monocytes # (Auto) 0.3 x10^3/uL (0.0-1.1) Eosinophils # (Auto) 0.0 x10^3/uL (0.0-0.7) Basophils # (Auto) 0.0 x10^3/uL (0.0-0.2) Sodium Level 134 mmol/L (136-145) Potassium Level 4.7 mmol/L (3.5-5.1) Chloride Level 101 mmol/L (98-107) Carbon Dioxide Level 24 mmol/L (21-32) Anion Gap 9 (6-14) Blood Urea Nitrogen 15 mg/dL (8-26) Creatinine 1.4 mg/dL (0.7-1.3) Estimated GFR (Cockcroft-Gault) 49.5 BUN/Creatinine Ratio 11 (6-20) Glucose Level 148 mg/dL (70-99) Calcium Level 8.4 mg/dL (8.5-10.1) Total Bilirubin 0.9 mg/dL (0.2-1.0) Aspartate Amino Transf (AST/SGOT) 29 U/L (15-37) Alanine Aminotransferase (ALT/SGPT) 11 U/L (16-63) Alkaline Phosphatase 116 U/L (46-116) Total Protein 6.5 g/dL (6.4-8.2) Albumin 2.5 g/dL (3.4-5.0) Albumin/Globulin Ratio 0.6 (1.0-1.7) Vitamin B12 Level 609 pg/mL (247-911) Test 01/23/19 07:22 01/23/19 11:29 Glucose (Fingerstick) 150 mg/dL (70-99) 187 mg/dL (70-99) Laboratory Tests Test 01/22/19 16:37 01/22/19 22:51 01/23/19 03:30 01/23/19 07:22 Glucose (Fingerstick) 175 mg/dL (70-99) 199 mg/dL (70-99) 150 mg/dL (70-99) White Blood Count 3.0 x10^3/uL (4.0-11.0) Red Blood Count 2.16 x10^6/uL (4.30-5.70) Hemoglobin 7.6 g/dL (13.0-17.5) Hematocrit 22.1 % (39.0-53.0) Mean Corpuscular Volume 102 fL (79-100) Mean Corpuscular Hemoglobin 35 pg (25-35) Mean Corpuscular Hemoglobin Concent 34 g/dL (31-37) Red Cell Distribution Width 19.4 % (11.5-14.5) Platelet Count 192 x10^3/uL (140-400) Neutrophils (%) (Auto) 73 % (31-73) Lymphocytes (%) (Auto) 14 % (24-48) Monocytes (%) (Auto) 10 % (0-9) Eosinophils (%) (Auto) 1 % (0-3) Basophils (%) (Auto) 1 % (0-3) Neutrophils # (Auto) 2.2 x10^3/uL (1.8-7.7) Lymphocytes # (Auto) 0.4 x10^3/uL (1.0-4.8) Monocytes # (Auto) 0.3 x10^3/uL (0.0-1.1) Eosinophils # (Auto) 0.0 x10^3/uL (0.0-0.7) Basophils # (Auto) 0.0 x10^3/uL (0.0-0.2) Sodium Level 134 mmol/L (136-145) Potassium Level 4.7 mmol/L (3.5-5.1) Chloride Level 101 mmol/L (98-107) Carbon Dioxide Level 24 mmol/L (21-32) Anion Gap 9 (6-14) Blood Urea Nitrogen 15 mg/dL (8-26) Creatinine 1.4 mg/dL (0.7-1.3) Estimated GFR (Cockcroft-Gault) 49.5 BUN/Creatinine Ratio 11 (6-20) Glucose Level 148 mg/dL (70-99) Calcium Level 8.4 mg/dL (8.5-10.1) Total Bilirubin 0.9 mg/dL (0.2-1.0) Aspartate Amino Transf (AST/SGOT) 29 U/L (15-37) Alanine Aminotransferase (ALT/SGPT) 11 U/L (16-63) Alkaline Phosphatase 116 U/L (46-116) Total Protein 6.5 g/dL (6.4-8.2) Albumin 2.5 g/dL (3.4-5.0) Albumin/Globulin Ratio 0.6 (1.0-1.7) Vitamin B12 Level 609 pg/mL (247-911) Test 01/23/19 11:29 Glucose (Fingerstick) 187 mg/dL (70-99) VTE Prophylaxis Ordered VTE Prophylaxis Devices: Yes VTE Pharmacological Prophylaxi: Yes Assessment/Plan Assessment/Plan I recommended irrigation and debridement with polyethylene exchange. We discussed potential need to proceed with complete excision of the total knee arthroplasty including the metal components in the future. Due to the recent onset of infection, the irrigation and debridement with polyethylene exchange, which is a lesser surgery, is likely to be effective and is the standard of care, but is not guaranteed as we discussed. The risks of this surgery include ongoing infection which might require excision of the total knee. Other risks include bleeding, scarring, stiffness, blood clots, or other potential surgical or anesthetic complications. LEENA ANNE MD Jan 23, 2019 15:22
--- NOTE | 2019-01-23 15:42 | PDOC ---
PROGRESS NOTES Subjective Subjective He was up with therapy today when I saw him. His was at the bedside today. He said his knee feels better than it did on Saturday when he was in quite a bit of pain Objective Vital Signs Vital Signs Date Time Temp Pulse Resp B/P (MAP) Pulse Ox O2 Delivery O2 Flow Rate FiO2 01/23/19 14:26 98.1 76 18 120/76 (91) 97 Room Air 98.1 01/22/19 08:00 1.5 Physical Exam The terri has bloody drainage distally. There is no active drainage however. This appears relatively benign. His active range of motion is about 15-90 and he is walking with a walker without difficulty. The calf is soft and nontender. There is still slight diffuse swelling of the leg. Labs The Gram stain results are reported and are negative. Cultures are still pending. RUN DATE: 01/23/19 [facility] *LIVE* PAGE 1 RUN TIME: 1211 Specimen Inquiry PATIENT: GIORGIO BERGER ACCT: [id number] LOC: [address] [place] [address] U: [id number] AGE/SX: 74/M ROOM: 205 RE01/20/[address]: LEENA ANNE MD : 1945 BED: 1 DIS: STATUS: ADM IN TLOC: SPEC #: [id number] MUSA: 01/20/19 STATUS: RES REQ #: [id number] RECD: 01/21/[address] [facility] [address]: LEENA ANNE MD SOURCE: KNEE FLUID ENTR: 01/21/19 [facility] DR: WERNER WANG MD [facility]: RIGHT ISABEL BUSTOS MD, DONALD J MD ORDERED: TAJ/CAROLEE/ROSEMARIE COMMENTS: RT KNEE FLUID Procedure Result -- ANAEROBIC-AEROBIC CULTURE PENDING ANAEROBIC RES 1 PENDING AEROBIC CULT Preliminary Preliminary report AEROBIC RES 1 Preliminary Comment No growth in 36 - 48 hours. GRAM STAIN Final Final report GRAM STAIN RES 1 Final Comment No white blood cells seen. GRAM STAIN RES 2 Final No organisms seen Performed at: - [address], [place], [place] [id number] Production Lead: SHO Dunham MD, Phone: [phone] END OF REPORT Laboratory Tests Test 01/21/19 16:42 01/21/19 20:19 01/22/19 07:07 01/22/19 08:55 Glucose (Fingerstick) 191 mg/dL (70-99) 260 mg/dL (70-99) 145 mg/dL (70-99) Hemoglobin 8.4 g/dL (13.0-17.5) Hematocrit 24.5 % (39.0-53.0) Mean Corpuscular Hemoglobin Concent 34 g/dL (31-37) Sodium Level 131 mmol/L (136-145) Potassium Level 4.8 mmol/L (3.5-5.1) Chloride Level 98 mmol/L (98-107) Carbon Dioxide Level 26 mmol/L (21-32) Anion Gap 7 (6-14) Blood Urea Nitrogen 20 mg/dL (8-26) Creatinine 1.4 mg/dL (0.7-1.3) Estimated GFR (Cockcroft-Gault) 49.5 BUN/Creatinine Ratio 14 (6-20) Glucose Level 181 mg/dL (70-99) Calcium Level 8.3 mg/dL (8.5-10.1) Total Bilirubin 1.6 mg/dL (0.2-1.0) Aspartate Amino Transf (AST/SGOT) 41 U/L (15-37) Alanine Aminotransferase (ALT/SGPT) 15 U/L (16-63) Alkaline Phosphatase 123 U/L (46-116) Total Protein 6.8 g/dL (6.4-8.2) Albumin 2.6 g/dL (3.4-5.0) Albumin/Globulin Ratio 0.6 (1.0-1.7) Test 01/22/19 11:42 01/22/19 16:37 01/22/19 22:51 01/23/19 03:30 Glucose (Fingerstick) 213 mg/dL (70-99) 175 mg/dL (70-99) 199 mg/dL (70-99) White Blood Count 3.0 x10^3/uL (4.0-11.0) Red Blood Count 2.16 x10^6/uL (4.30-5.70) Hemoglobin 7.6 g/dL (13.0-17.5) Hematocrit 22.1 % (39.0-53.0) Mean Corpuscular Volume 102 fL (79-100) Mean Corpuscular Hemoglobin 35 pg (25-35) Mean Corpuscular Hemoglobin Concent 34 g/dL (31-37) Red Cell Distribution Width 19.4 % (11.5-14.5) Platelet Count 192 x10^3/uL (140-400) Neutrophils (%) (Auto) 73 % (31-73) Lymphocytes (%) (Auto) 14 % (24-48) Monocytes (%) (Auto) 10 % (0-9) Eosinophils (%) (Auto) 1 % (0-3) Basophils (%) (Auto) 1 % (0-3) Neutrophils # (Auto) 2.2 x10^3/uL (1.8-7.7) Lymphocytes # (Auto) 0.4 x10^3/uL (1.0-4.8) Monocytes # (Auto) 0.3 x10^3/uL (0.0-1.1) Eosinophils # (Auto) 0.0 x10^3/uL (0.0-0.7) Basophils # (Auto) 0.0 x10^3/uL (0.0-0.2) Sodium Level 134 mmol/L (136-145) Potassium Level 4.7 mmol/L (3.5-5.1) Chloride Level 101 mmol/L (98-107) Carbon Dioxide Level 24 mmol/L (21-32) Anion Gap 9 (6-14) Blood Urea Nitrogen 15 mg/dL (8-26) Creatinine 1.4 mg/dL (0.7-1.3) Estimated GFR (Cockcroft-Gault) 49.5 BUN/Creatinine Ratio 11 (6-20) Glucose Level 148 mg/dL (70-99) Calcium Level 8.4 mg/dL (8.5-10.1) Total Bilirubin 0.9 mg/dL (0.2-1.0) Aspartate Amino Transf (AST/SGOT) 29 U/L (15-37) Alanine Aminotransferase (ALT/SGPT) 11 U/L (16-63) Alkaline Phosphatase 116 U/L (46-116) Total Protein 6.5 g/dL (6.4-8.2) Albumin 2.5 g/dL (3.4-5.0) Albumin/Globulin Ratio 0.6 (1.0-1.7) Vitamin B12 Level 609 pg/mL (247-911) Test 01/23/19 07:22 01/23/19 11:29 Glucose (Fingerstick) 150 mg/dL (70-99) 187 mg/dL (70-99) Laboratory Tests Test 01/22/19 16:37 01/22/19 22:51 01/23/19 03:30 01/23/19 07:22 Glucose (Fingerstick) 175 mg/dL (70-99) 199 mg/dL (70-99) 150 mg/dL (70-99) White Blood Count 3.0 x10^3/uL (4.0-11.0) Red Blood Count 2.16 x10^6/uL (4.30-5.70) Hemoglobin 7.6 g/dL (13.0-17.5) Hematocrit 22.1 % (39.0-53.0) Mean Corpuscular Volume 102 fL (79-100) Mean Corpuscular Hemoglobin 35 pg (25-35) Mean Corpuscular Hemoglobin Concent 34 g/dL (31-37) Red Cell Distribution Width 19.4 % (11.5-14.5) Platelet Count 192 x10^3/uL (140-400) Neutrophils (%) (Auto) 73 % (31-73) Lymphocytes (%) (Auto) 14 % (24-48) Monocytes (%) (Auto) 10 % (0-9) Eosinophils (%) (Auto) 1 % (0-3) Basophils (%) (Auto) 1 % (0-3) Neutrophils # (Auto) 2.2 x10^3/uL (1.8-7.7) Lymphocytes # (Auto) 0.4 x10^3/uL (1.0-4.8) Monocytes # (Auto) 0.3 x10^3/uL (0.0-1.1) Eosinophils # (Auto) 0.0 x10^3/uL (0.0-0.7) Basophils # (Auto) 0.0 x10^3/uL (0.0-0.2) Sodium Level 134 mmol/L (136-145) Potassium Level 4.7 mmol/L (3.5-5.1) Chloride Level 101 mmol/L (98-107) Carbon Dioxide Level 24 mmol/L (21-32) Anion Gap 9 (6-14) Blood Urea Nitrogen 15 mg/dL (8-26) Creatinine 1.4 mg/dL (0.7-1.3) Estimated GFR (Cockcroft-Gault) 49.5 BUN/Creatinine Ratio 11 (6-20) Glucose Level 148 mg/dL (70-99) Calcium Level 8.4 mg/dL (8.5-10.1) Total Bilirubin 0.9 mg/dL (0.2-1.0) Aspartate Amino Transf (AST/SGOT) 29 U/L (15-37) Alanine Aminotransferase (ALT/SGPT) 11 U/L (16-63) Alkaline Phosphatase 116 U/L (46-116) Total Protein 6.5 g/dL (6.4-8.2) Albumin 2.5 g/dL (3.4-5.0) Albumin/Globulin Ratio 0.6 (1.0-1.7) Vitamin B12 Level 609 pg/mL (247-911) Test 01/23/19 11:29 Glucose (Fingerstick) 187 mg/dL (70-99) Assessment Assessment POD#3 after I&D with poly exchange (1 stage revision, polyethylene only) Plan Plan of Care I don't think he should go home until the cultures are finalized. Infectious disease will make final decision about antibiotics once those are finalized. Continue postop care. I discussed his care with him, his , his nurse and his physical therapist. LEENA ANNE MD Jan 23, 2019 15:42
[2019-01-23 19:35] VITALS: BP 136/80
[2019-01-23 23:10] VITALS: BP 107/68
[2019-01-24 03:30] VITALS: BP 105/78
[2019-01-24 04:48] LABS: HEMATOCRIT 23.5 % (39.0-53.0)
[2019-01-24] MEDS: PIPERACILLIN/TAZOBACTAM 3.375 GM in IV NORMAL SALINE 50ML 50 ML IV SCH ×4 (05:39→23:50)
[2019-01-24 07:00] VITALS: BP 147/82
[2019-01-24] MEDS: LEVOTHYROXINE 125 MCG TABLET PO SCH (07:59)
[2019-01-24] MEDS: PANTOPRAZOLE 40 MG TABLET.DR. PO SCH (07:59)
[2019-01-24] MEDS: ASPIRIN ENTERIC COATED 81 MG TABLET.DR. PO SCH (07:59)
[2019-01-24] MEDS: METOPROLOL TART IMMED RELEASE 25 MG TABLET. PO SCH ×2 (08:00→20:40)
[2019-01-24] MEDS: SENNOSIDES/DOCUSATE 8.6/50MG TABLET. PO SCH (08:00)
[2019-01-24] MEDS: INSULIN LISPRO 300 UNITS/3 ML VIAL. SQ SCH ×3 (08:00→17:26)
[2019-01-24] MEDS: FERROUS SULFATE 325 MG TABLET. PO SCH (08:00)
[2019-01-24] MEDS: MULTIVITAMIN with MINERAL TABLET. PO SCH (08:00)
--- NOTE | 2019-01-24 08:45 | PDOC ---
PROGRESS NOTES Subjective Subjective He is feeling well and just starting his breakfast. Knee pain improved from preop, sleeping well, no constipation. EUFEMIA was changed yesterday and reportedly the incision is looking good. I checked his cultures and they are currently "pending"; last posted update is from 1211 on 01/23. Preliminary was negative, but not final at this time. Objective Vital Signs Vital Signs Date Time Temp Pulse Resp B/P (MAP) Pulse Ox O2 Delivery O2 Flow Rate FiO2 01/24/19 08:00 91 147/82 01/24/19 03:30 97.7 20 98 Room Air 97.7 01/22/19 08:00 1.5 Physical Exam New EUFEMIA has minimal spotty drainage only. Calf soft. Swelling seems improved from a week ago. Was up with walker yesterday. Comfortable in bed eating b reakfast now. Labs Laboratory Tests Test 01/22/19 08:55 01/22/19 11:42 01/22/19 16:37 01/22/19 22:51 Hemoglobin 8.4 g/dL (13.0-17.5) Hematocrit 24.5 % (39.0-53.0) Mean Corpuscular Hemoglobin Concent 34 g/dL (31-37) Sodium Level 131 mmol/L (136-145) Potassium Level 4.8 mmol/L (3.5-5.1) Chloride Level 98 mmol/L (98-107) Carbon Dioxide Level 26 mmol/L (21-32) Anion Gap 7 (6-14) Blood Urea Nitrogen 20 mg/dL (8-26) Creatinine 1.4 mg/dL (0.7-1.3) Estimated GFR (Cockcroft-Gault) 49.5 BUN/Creatinine Ratio 14 (6-20) Glucose Level 181 mg/dL (70-99) Calcium Level 8.3 mg/dL (8.5-10.1) Total Bilirubin 1.6 mg/dL (0.2-1.0) Aspartate Amino Transf (AST/SGOT) 41 U/L (15-37) Alanine Aminotransferase (ALT/SGPT) 15 U/L (16-63) Alkaline Phosphatase 123 U/L (46-116) Total Protein 6.8 g/dL (6.4-8.2) Albumin 2.6 g/dL (3.4-5.0) Albumin/Globulin Ratio 0.6 (1.0-1.7) Glucose (Fingerstick) 213 mg/dL (70-99) 175 mg/dL (70-99) 199 mg/dL (70-99) Test 01/23/19 03:30 01/23/19 07:22 01/23/19 11:29 01/23/19 16:25 White Blood Count 3.0 x10^3/uL (4.0-11.0) Red Blood Count 2.16 x10^6/uL (4.30-5.70) Hemoglobin 7.6 g/dL (13.0-17.5) Hematocrit 22.1 % (39.0-53.0) Mean Corpuscular Volume 102 fL (79-100) Mean Corpuscular Hemoglobin 35 pg (25-35) Mean Corpuscular Hemoglobin Concent 34 g/dL (31-37) Red Cell Distribution Width 19.4 % (11.5-14.5) Platelet Count 192 x10^3/uL (140-400) Neutrophils (%) (Auto) 73 % (31-73) Lymphocytes (%) (Auto) 14 % (24-48) Monocytes (%) (Auto) 10 % (0-9) Eosinophils (%) (Auto) 1 % (0-3) Basophils (%) (Auto) 1 % (0-3) Neutrophils # (Auto) 2.2 x10^3/uL (1.8-7.7) Lymphocytes # (Auto) 0.4 x10^3/uL (1.0-4.8) Monocytes # (Auto) 0.3 x10^3/uL (0.0-1.1) Eosinophils # (Auto) 0.0 x10^3/uL (0.0-0.7) Basophils # (Auto) 0.0 x10^3/uL (0.0-0.2) Sodium Level 134 mmol/L (136-145) Potassium Level 4.7 mmol/L (3.5-5.1) Chloride Level 101 mmol/L (98-107) Carbon Dioxide Level 24 mmol/L (21-32) Anion Gap 9 (6-14) Blood Urea Nitrogen 15 mg/dL (8-26) Creatinine 1.4 mg/dL (0.7-1.3) Estimated GFR (Cockcroft-Gault) 49.5 BUN/Creatinine Ratio 11 (6-20) Glucose Level 148 mg/dL (70-99) Calcium Level 8.4 mg/dL (8.5-10.1) Total Bilirubin 0.9 mg/dL (0.2-1.0) Aspartate Amino Transf (AST/SGOT) 29 U/L (15-37) Alanine Aminotransferase (ALT/SGPT) 11 U/L (16-63) Alkaline Phosphatase 116 U/L (46-116) Total Protein 6.5 g/dL (6.4-8.2) Albumin 2.5 g/dL (3.4-5.0) Albumin/Globulin Ratio 0.6 (1.0-1.7) Vitamin B12 Level 609 pg/mL (247-911) Glucose (Fingerstick) 150 mg/dL (70-99) 187 mg/dL (70-99) 126 mg/dL (70-99) Test 01/23/19 21:38 01/24/19 03:30 01/24/19 07:57 Glucose (Fingerstick) 192 mg/dL (70-99) 141 mg/dL (70-99) Hemoglobin 8.0 g/dL (13.0-17.5) Hematocrit 23.5 % (39.0-53.0) Mean Corpuscular Hemoglobin Concent 34 g/dL (31-37) Laboratory Tests Test 01/23/19 11:29 01/23/19 16:25 01/23/19 21:38 01/24/19 03:30 Glucose (Fingerstick) 187 mg/dL (70-99) 126 mg/dL (70-99) 192 mg/dL (70-99) Hemoglobin 8.0 g/dL (13.0-17.5) Hematocrit 23.5 % (39.0-53.0) Mean Corpuscular Hemoglobin Concent 34 g/dL (31-37) Test 01/24/19 07:57 Glucose (Fingerstick) 141 mg/dL (70-99) Assessment Assessment POD#4 after I&D for suspected early TKA infection. Cultures remain negative (and I suspect they will stay negative.) Plan Plan of Care In my experience, once patients have had an I&D and poly exchange in this early postop situation, the best course of action is to treat presumptively with 6 weeks of antibiotics. I discussed this with Mr. Arellano (there are risks and cost of 6 weeks of IV antibiotics, but the alternative off NOT treating with antibiotics includes a higher risk of explantation and more surgery in 1-2 months.) Typically treat with IV for 6 weeks, then po antibiotics such as doxycycline until ESR and CRP have normalized. I contacted Dr. Duncan (ID) regarding my thoughts. Patient will need a PICC if Dr. Duncan agrees. Discharge planning, but need to wait for final cultures to determine antibiotic choice. LEENA ANNE MD Jan 24, 2019 08:45
[2019-01-24] MEDS: DAPTOmycin (GENERIC) IVPB 480 MG in IV NORMAL SALINE 50ML 50 ML IV SCH (10:30)
[2019-01-24 11:00] VITALS: BP 119/70
[2019-01-24] MEDS: oxyCODONE/APAP 5/325 1 TAB TABLET PO PRN ×3 (11:22→22:03)
--- NOTE | 2019-01-24 11:43 | PDOC ---
Infectious Disease Note Subjective Subjective Comfortable, pain control Some loose stools, no more than usual Appetite good Denie F/C/N/V/SOA ROS ROS per HPI Vital Sign Vital Signs Vital Signs Date Time Temp Pulse Resp B/P (MAP) Pulse Ox O2 Delivery O2 Flow Rate FiO2 01/24/19 11:22 99 Room Air 01/24/19 08:00 91 147/82 01/24/19 07:00 98.3 20 98.3 Physical Exam PHYSICAL EXAM GENERAL: Propped up in bed, alert, NAD HEENT: Oral cavity clear NECK: Supple LUNGS: Clear bilaterally. No wheezing. HEART: S1, S2 irregular ABDOMEN: Soft and nontender EXTREMITIES: Right lower extremity in dressing intact, not taken down. Trace edema NEUROLOGIC: Alert and oriented x 3, grossly nonfocal. SKIN: Warm, dry. No generalized rash. PIV Labs Lab Laboratory Tests Test 01/23/19 16:25 01/23/19 21:38 01/24/19 03:30 01/24/19 07:57 Glucose (Fingerstick) 126 mg/dL (70-99) 192 mg/dL (70-99) 141 mg/dL (70-99) Hemoglobin 8.0 g/dL (13.0-17.5) Hematocrit 23.5 % (39.0-53.0) Mean Corpuscular Hemoglobin Concent 34 g/dL (31-37) Micro Microbiology 01/21/19 Blood Culture - Preliminary, Resulted NO GROWTH AFTER 3 DAYS Right knee ANAEROBIC-AEROBIC CULTURE PENDING ANAEROBIC RES 1 PENDING AEROBIC CULT Preliminary Preliminary report AEROBIC RES 1 Preliminary Comment No growth in 36 - 48 hours. GRAM STAIN Final Final report GRAM STAIN RES 1 Final Comment No white blood cells seen. GRAM STAIN RES 2 Final No organisms seen Objective Assessment Status post right knee incision and drainage and revision of polyethylene (1 component) of total knee arthroplasty. 01/20 for possible PJI. culture neg so far Status post recent total knee arthroplasty 12/30/2018. Atrial fibrillation with rapid ventricular response. Anemia. Leukopenia. Diabetes mellitus. Acute kidney injury. RLE nonhealing wound around the munoz Plan Plan of Care Continue daptomycin 6 mg per kg daily. may need adjustment according to renal function. continue Zosyn Follow up intraoperative cultures. CBC in am Local wound care per Ortho. PICC placement for long-term abx D/w nursing D/w and d/w Dr. Cochran earlier Consult health care social worker when ready for discharge Attending Co-Sign Attending Co-Sign The patient was seen and interviewed as well as examined at the bedside. The chart was reviewed. The case was discussed. Agree with the plan of care. KHANG ARAGON APRN Jan 24, 2019 11:43 ISABEL BUSTOS MD Jan 24, 2019 15:52
--- NOTE | 2019-01-24 15:29 | PDOC ---
GENERAL General: vss and afebrile. awake and alert and gradually less knee pain. questions regarding dc. chest clear, heart normal rate, abdomen benign, right knee dres sed. Hb stable at 8.0. creatinine decreased to 1.4. sugars are acceptable. right knee cultures negative to date. continue dapto and zosyn per ID. VITAL SIGNS/I&O Vital Signs/I&O: Vital Signs Date Time Temp Pulse Resp B/P (MAP) Pulse Ox O2 Delivery O2 Flow Rate FiO2 01/24/19 12:22 99 Room Air 01/24/19 11:00 98.2 78 20 119/70 (86) 98.2 I & O 01/23/19 01/23/19 01/24/19 15:00 23:00 07:00 Intake Total 480 ml 900 ml 400 ml Output Total 200 ml 500 ml 400 ml Balance 280 ml 400 ml 0 ml ALLERGIES Allergies: Allergies Coded Allergies Type Severity Reaction Last Updated Verified zolpidem Adverse Reaction Mild Hallucination 01/21/19 Yes LAB Lab: Laboratory Tests Test 01/23/19 16:25 01/23/19 21:38 01/24/19 03:30 01/24/19 07:57 Glucose (Fingerstick) 126 mg/dL (70-99) H 192 mg/dL (70-99) H 141 mg/dL (70-99) H Hemoglobin 8.0 g/dL (13.0-17.5) L Hematocrit 23.5 % (39.0-53.0) L Mean Corpuscular Hemoglobin Concent 34 g/dL (31-37) Test 01/24/19 11:19 Glucose (Fingerstick) 196 mg/dL (70-99) H Laboratory Tests 01/24/19 03:30 JEFF VALDIVIA MD Jan 24, 2019 15:29
[2019-01-24 15:40] VITALS: BP_SYST 128; BP_SYST 145; BP_DIAS 71; BP_DIAS 75
[2019-01-24 19:20] VITALS: BP 116/70
[2019-01-24] MEDS: LACTOBACILLUS RHAMNOSUS GG 1 CAPSULE. PO SCH (20:40)
[2019-01-24 23:32] VITALS: BP 114/64
[2019-01-25] MEDS: oxyCODONE/APAP 5/325 1 TAB TABLET PO PRN ×4 (02:25→22:20)
[2019-01-25 03:45] VITALS: BP 131/72
[2019-01-25 05:18] LABS: BASO % 1 % (0-3); EOS # 0.1 x10^3/uL (0.0-0.7); EOS % 2 % (0-3); HEMATOCRIT 23.3 % (39.0-53.0); HEMOGLOBIN 7.8 g/dL (13.0-17.5); LYMPH # 0.6 x10^3/uL (1.0-4.8); LYMPH % 22 % (24-48); MEAN CORPUSCULAR HEMOGLOBIN 36 pg (25-35); MEAN CORPUSCULAR HGB CONC 34 g/dL (31-37); MEAN CORPUSCULAR VOLUME 106 fL (79-100); MONO # 0.3 x10^3/uL (0.0-1.1); MONO % 11 % (0-9); NEUT # 1.9 x10^3/uL (1.8-7.7); NEUT % 65 % (31-73); PLATELET COUNT 194 x10^3/uL (140-400); RED CELL DISTRIBUTION WIDTH 19.1 % (11.5-14.5); WHITE BLOOD COUNT 2.9 x10^3/uL (4.0-11.0)
[2019-01-25] MEDS: PIPERACILLIN/TAZOBACTAM 3.375 GM in IV NORMAL SALINE 50ML 50 ML IV SCH ×3 (05:51→18:27)
[2019-01-25 07:00] VITALS: BP 139/79
[2019-01-25] MEDS: INSULIN LISPRO 300 UNITS/3 ML VIAL. SQ SCH ×3 (07:50→17:00)
[2019-01-25] MEDS: METOPROLOL TART IMMED RELEASE 25 MG TABLET. PO SCH ×2 (08:17→22:19)
[2019-01-25] MEDS: MULTIVITAMIN with MINERAL TABLET. PO SCH (08:17)
[2019-01-25] MEDS: LEVOTHYROXINE 125 MCG TABLET PO SCH (08:17)
[2019-01-25] MEDS: LACTOBACILLUS RHAMNOSUS GG 1 CAPSULE. PO SCH ×2 (08:17→22:20)
[2019-01-25] MEDS: PANTOPRAZOLE 40 MG TABLET.DR. PO SCH (08:17)
[2019-01-25] MEDS: ASPIRIN ENTERIC COATED 81 MG TABLET.DR. PO SCH (08:17)
[2019-01-25] MEDS: FERROUS SULFATE 325 MG TABLET. PO SCH (08:17)
[2019-01-25] MEDS: SENNOSIDES/DOCUSATE 8.6/50MG TABLET. PO SCH (08:17)
--- NOTE | 2019-01-25 09:36 | PDOC ---
Infectious Disease Note Subjective Subjective Occasional pain right leg Some loose stools, no more than usual Appetite good Denies F/C/N/V/SOA ROS ROS per HPI Vital Sign Vital Signs Vital Signs Date Time Temp Pulse Resp B/P (MAP) Pulse Ox O2 Delivery O2 Flow Rate FiO2 01/25/19 08:17 84 139/79 01/25/19 07:30 Room Air 01/25/19 07:00 98.6 18 97 98.6 Physical Exam PHYSICAL EXAM GENERAL: Propped up in bed, alert, NAD HEENT: Oral cavity clear NECK: Supple LUNGS: Clear bilaterally. No wheezing. HEART: S1, S2 ABDOMEN: Soft and nontender EXTREMITIES: Right lower extremity in dressing intact, not taken down. Trace edema NEUROLOGIC: Alert and oriented x 3, grossly nonfocal. SKIN: Warm, dry. No generalized rash. PIV Labs Lab Laboratory Tests Test 01/24/19 11:19 01/24/19 17:11 01/24/19 20:58 01/25/19 03:45 Glucose (Fingerstick) 196 mg/dL (70-99) 199 mg/dL (70-99) 155 mg/dL (70-99) White Blood Count 2.9 x10^3/uL (4.0-11.0) Red Blood Count 2.20 x10^6/uL (4.30-5.70) Hemoglobin 7.8 g/dL (13.0-17.5) Hematocrit 23.3 % (39.0-53.0) Mean Corpuscular Volume 106 fL (79-100) Mean Corpuscular Hemoglobin 36 pg (25-35) Mean Corpuscular Hemoglobin Concent 34 g/dL (31-37) Red Cell Distribution Width 19.1 % (11.5-14.5) Platelet Count 194 x10^3/uL (140-400) Neutrophils (%) (Auto) 65 % (31-73) Lymphocytes (%) (Auto) 22 % (24-48) Monocytes (%) (Auto) 11 % (0-9) Eosinophils (%) (Auto) 2 % (0-3) Basophils (%) (Auto) 1 % (0-3) Neutrophils # (Auto) 1.9 x10^3/uL (1.8-7.7) Lymphocytes # (Auto) 0.6 x10^3/uL (1.0-4.8) Monocytes # (Auto) 0.3 x10^3/uL (0.0-1.1) Eosinophils # (Auto) 0.1 x10^3/uL (0.0-0.7) Basophils # (Auto) 0.0 x10^3/uL (0.0-0.2) Test 01/25/19 07:16 Glucose (Fingerstick) 122 mg/dL (70-99) Micro Microbiology 01/21/19 Blood Culture - Preliminary, Resulted NO GROWTH AFTER 4 DAYS Right knee ANAEROBIC RES 1 PENDING AEROBIC RES 1 Final Comment No growth in 36 - 48 hours. No growth in 56 - 72 hours. Objective Assessment Status post right knee incision and drainage and revision of polyethylene (1 component) of total knee arthroplasty. 01/20 for possible PJI. culture neg so far Status post recent total knee arthroplasty 12/30/2018. Atrial fibrillation with rapid ventricular response. Anemia. Leukopenia. Diabetes mellitus. Acute kidney injury. RLE nonhealing wound around the munoz Plan Plan of Care daptomycin and Zosyn Intraoperative cultures neg to date CBC in am Probiotics Local wound care per Ortho. 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 Also Leukopenic in 2014. This is only 4th day of Zosyn May need Heme eval D/w Attending Co-Sign Attending Co-Sign The patient was seen and interviewed as well as examined at the bedside. The chart was reviewed. The case was discussed. Agree with the plan of care. KHANG ARAGON APRN Jan 25, 2019 09:36 ISABEL BUSTOS MD Jan 25, 2019 15:02
--- NOTE | 2019-01-25 10:25 | PDOC ---
PROGRESS NOTES Subjective Subjective Problems overnight: Patient resting comfortably taking pain medicine occasionally but otherwise doing well he got up to the shower this morning Objective Vital Signs Vital Signs Date Time Temp Pulse Resp B/P (MAP) Pulse Ox O2 Delivery O2 Flow Rate FiO2 01/25/19 08:17 84 139/79 01/25/19 07:30 Room Air 01/25/19 07:00 98.6 18 97 98.6 01/22/19 08:00 1.5 Physical Exam Terri dressing was just changed on Saturday but noted to be leaking distally he noted it to be this way when he got up this morning. There didn't appear to be tape on it distally I did peel back and ChloraPrep around the distal portion and re-taped the terri dressing which maintained good suction when restarted Labs Laboratory Tests Test 01/23/19 11:29 01/23/19 16:25 01/23/19 21:38 01/24/19 03:30 Glucose (Fingerstick) 187 mg/dL (70-99) 126 mg/dL (70-99) 192 mg/dL (70-99) Hemoglobin 8.0 g/dL (13.0-17.5) Hematocrit 23.5 % (39.0-53.0) Mean Corpuscular Hemoglobin Concent 34 g/dL (31-37) Test 01/24/19 07:57 01/24/19 11:19 01/24/19 17:11 01/24/19 20:58 Glucose (Fingerstick) 141 mg/dL (70-99) 196 mg/dL (70-99) 199 mg/dL (70-99) 155 mg/dL (70-99) Test 01/25/19 03:45 01/25/19 07:16 White Blood Count 2.9 x10^3/uL (4.0-11.0) Red Blood Count 2.20 x10^6/uL (4.30-5.70) Hemoglobin 7.8 g/dL (13.0-17.5) Hematocrit 23.3 % (39.0-53.0) Mean Corpuscular Volume 106 fL (79-100) Mean Corpuscular Hemoglobin 36 pg (25-35) Mean Corpuscular Hemoglobin Concent 34 g/dL (31-37) Red Cell Distribution Width 19.1 % (11.5-14.5) Platelet Count 194 x10^3/uL (140-400) Neutrophils (%) (Auto) 65 % (31-73) Lymphocytes (%) (Auto) 22 % (24-48) Monocytes (%) (Auto) 11 % (0-9) Eosinophils (%) (Auto) 2 % (0-3) Basophils (%) (Auto) 1 % (0-3) Neutrophils # (Auto) 1.9 x10^3/uL (1.8-7.7) Lymphocytes # (Auto) 0.6 x10^3/uL (1.0-4.8) Monocytes # (Auto) 0.3 x10^3/uL (0.0-1.1) Eosinophils # (Auto) 0.1 x10^3/uL (0.0-0.7) Basophils # (Auto) 0.0 x10^3/uL (0.0-0.2) Glucose (Fingerstick) 122 mg/dL (70-99) Laboratory Tests Test 01/24/19 11:19 01/24/19 17:11 01/24/19 20:58 01/25/19 03:45 Glucose (Fingerstick) 196 mg/dL (70-99) 199 mg/dL (70-99) 155 mg/dL (70-99) White Blood Count 2.9 x10^3/uL (4.0-11.0) Red Blood Count 2.20 x10^6/uL (4.30-5.70) Hemoglobin 7.8 g/dL (13.0-17.5) Hematocrit 23.3 % (39.0-53.0) Mean Corpuscular Volume 106 fL (79-100) Mean Corpuscular Hemoglobin 36 pg (25-35) Mean Corpuscular Hemoglobin Concent 34 g/dL (31-37) Red Cell Distribution Width 19.1 % (11.5-14.5) Platelet Count 194 x10^3/uL (140-400) Neutrophils (%) (Auto) 65 % (31-73) Lymphocytes (%) (Auto) 22 % (24-48) Monocytes (%) (Auto) 11 % (0-9) Eosinophils (%) (Auto) 2 % (0-3) Basophils (%) (Auto) 1 % (0-3) Neutrophils # (Auto) 1.9 x10^3/uL (1.8-7.7) Lymphocytes # (Auto) 0.6 x10^3/uL (1.0-4.8) Monocytes # (Auto) 0.3 x10^3/uL (0.0-1.1) Eosinophils # (Auto) 0.1 x10^3/uL (0.0-0.7) Basophils # (Auto) 0.0 x10^3/uL (0.0-0.2) Test 01/25/19 07:16 Glucose (Fingerstick) 122 mg/dL (70-99) Assessment Assessment POD# irrigation debridement of right knee with polyethylene exchange Plan Plan of Care Weightbearing and activity as tolerated Antibiotics per infectious disease Awaiting PICC line prior to discharge DORIS CASTILLO MD Jan 25, 2019 10:24
--- NOTE | 2019-01-25 10:41 | PDOC ---
GENERAL General: vss and afebrile awake and alert and comfortable this am. chest clear, heart regular, abdomen benign, knee dressed with wound vac in place. cultures negative to date. plan for PICC line tomorrow with ID to direct further antibiotics. VITAL SIGNS/I&O Vital Signs/I&O: Vital Signs Date Time Temp Pulse Resp B/P (MAP) Pulse Ox O2 Delivery O2 Flow Rate FiO2 01/25/19 08:17 84 139/79 01/25/19 07:30 Room Air 01/25/19 07:00 98.6 18 97 98.6 I & O 01/24/19 01/24/19 01/25/19 15:00 23:00 07:00 Intake Total 400 ml 800 ml 160 ml Output Total 500 ml 450 ml Balance 400 ml 300 ml -290 ml ALLERGIES Allergies: Allergies Coded Allergies Type Severity Reaction Last Updated Verified zolpidem Adverse Reaction Mild Hallucination 01/21/19 Yes MEDS Medications: Current Medications Medications (Trade) Dose Ordered Sig/Nicole Route PRN Reason Start Time Stop Time Status Last Admin Dose Admin Lactobacillus Rhamnosus (Culturelle) 1 cap BID PO 01/24/19 21:00 01/25/19 08:17 LAB Lab: Laboratory Tests Test 01/24/19 11:19 01/24/19 17:11 01/24/19 20:58 01/25/19 03:45 Glucose (Fingerstick) 196 mg/dL (70-99) H 199 mg/dL (70-99) H 155 mg/dL (70-99) H White Blood Count 2.9 x10^3/uL (4.0-11.0) L Red Blood Count 2.20 x10^6/uL (4.30-5.70) L Hemoglobin 7.8 g/dL (13.0-17.5) L Hematocrit 23.3 % (39.0-53.0) L Mean Corpuscular Volume 106 fL (79-100) H Mean Corpuscular Hemoglobin 36 pg (25-35) H Mean Corpuscular Hemoglobin Concent 34 g/dL (31-37) Red Cell Distribution Width 19.1 % (11.5-14.5) H Platelet Count 194 x10^3/uL (140-400) Neutrophils (%) (Auto) 65 % (31-73) Lymphocytes (%) (Auto) 22 % (24-48) L Monocytes (%) (Auto) 11 % (0-9) H Eosinophils (%) (Auto) 2 % (0-3) Basophils (%) (Auto) 1 % (0-3) Neutrophils # (Auto) 1.9 x10^3/uL (1.8-7.7) Lymphocytes # (Auto) 0.6 x10^3/uL (1.0-4.8) L Monocytes # (Auto) 0.3 x10^3/uL (0.0-1.1) Eosinophils # (Auto) 0.1 x10^3/uL (0.0-0.7) Basophils # (Auto) 0.0 x10^3/uL (0.0-0.2) Creatine Kinase 62 U/L (39-308) Test 01/25/19 07:16 Glucose (Fingerstick) 122 mg/dL (70-99) H Laboratory Tests 01/25/19 03:45 JEFF VALDIVIA MD Jan 25, 2019 10:41
[2019-01-25 11:00] VITALS: BP 124/63
[2019-01-25] MEDS: DAPTOmycin (GENERIC) IVPB 480 MG in IV NORMAL SALINE 50ML 50 ML IV SCH (11:41)
[2019-01-25 15:00] VITALS: BP 123/69
[2019-01-25 19:15] VITALS: BP 136/63
[2019-01-25 22:22] VITALS: BP 138/71
[2019-01-26] MEDS: PIPERACILLIN/TAZOBACTAM 3.375 GM in IV NORMAL SALINE 50ML 50 ML IV SCH ×5 (00:48→23:37)
[2019-01-26 03:20] VITALS: BP 124/75
[2019-01-26 04:38] LABS: BASO % 1 % (0-3); EOS # 0.1 x10^3/uL (0.0-0.7); EOS % 2 % (0-3); HEMATOCRIT 25.4 % (39.0-53.0); HEMOGLOBIN 8.5 g/dL (13.0-17.5); LYMPH # 0.6 x10^3/uL (1.0-4.8); LYMPH % 19 % (24-48); MEAN CORPUSCULAR HEMOGLOBIN 35 pg (25-35); MEAN CORPUSCULAR HGB CONC 33 g/dL (31-37); MEAN CORPUSCULAR VOLUME 106 fL (79-100); MONO # 0.3 x10^3/uL (0.0-1.1); MONO % 10 % (0-9); NEUT # 2.3 x10^3/uL (1.8-7.7); NEUT % 69 % (31-73); PLATELET COUNT 194 x10^3/uL (140-400); RED BLOOD COUNT 2.39 x10^6/uL (4.30-5.70); RED CELL DISTRIBUTION WIDTH 20.2 % (11.5-14.5); WHITE BLOOD COUNT 3.4 x10^3/uL (4.0-11.0)
[2019-01-26 04:47] LABS: CALCIUM 8.2 mg/dL (8.5-10.1); CREATININE 1.3 mg/dL (0.7-1.3)
[2019-01-26 07:00] VITALS: BP 140/80
--- NOTE | 2019-01-26 08:30 | PDOC ---
Infectious Disease Note Subjective Subjective Occasional pain right leg - Some loose stools, no more than usual Appetite good Denies F/C/N/V/SOA Vital Sign Vital Signs Vital Signs Date Time Temp Pulse Resp B/P (MAP) Pulse Ox O2 Delivery O2 Flow Rate FiO2 01/26/19 07:00 99.1 83 20 140/80 (100) 96 Room Air 99.1 Physical Exam PHYSICAL EXAM GENERAL: Propped up in bed, alert, NAD HEENT: Oral cavity clear NECK: Supple LUNGS: Clear bilaterally. No wheezing. HEART: S1, S2 ABDOMEN: Soft and nontender EXTREMITIES: Right lower extremity in dressing intact, not taken down. Trace edema and warmth- expected NEUROLOGIC: Alert and oriented x 3, grossly nonfocal. SKIN: Warm, dry. No generalized rash. PIV Labs Lab Laboratory Tests Test 01/25/19 11:53 01/25/19 16:54 01/25/19 22:18 01/26/19 03:05 Glucose (Fingerstick) 199 mg/dL (70-99) 109 mg/dL (70-99) 144 mg/dL (70-99) Sodium Level 134 mmol/L (136-145) Potassium Level 5.0 mmol/L (3.5-5.1) Chloride Level 101 mmol/L (98-107) Carbon Dioxide Level 23 mmol/L (21-32) Anion Gap 10 (6-14) Blood Urea Nitrogen 10 mg/dL (8-26) Creatinine 1.3 mg/dL (0.7-1.3) Estimated GFR (Cockcroft-Gault) 54.0 Glucose Level 139 mg/dL (70-99) Calcium Level 8.2 mg/dL (8.5-10.1) Test 01/26/19 03:45 01/26/19 07:31 White Blood Count 3.4 x10^3/uL (4.0-11.0) Red Blood Count 2.39 x10^6/uL (4.30-5.70) Hemoglobin 8.5 g/dL (13.0-17.5) Hematocrit 25.4 % (39.0-53.0) Mean Corpuscular Volume 106 fL (79-100) Mean Corpuscular Hemoglobin 35 pg (25-35) Mean Corpuscular Hemoglobin Concent 33 g/dL (31-37) Red Cell Distribution Width 20.2 % (11.5-14.5) Platelet Count 194 x10^3/uL (140-400) Neutrophils (%) (Auto) 69 % (31-73) Lymphocytes (%) (Auto) 19 % (24-48) Monocytes (%) (Auto) 10 % (0-9) Eosinophils (%) (Auto) 2 % (0-3) Basophils (%) (Auto) 1 % (0-3) Neutrophils # (Auto) 2.3 x10^3/uL (1.8-7.7) Lymphocytes # (Auto) 0.6 x10^3/uL (1.0-4.8) Monocytes # (Auto) 0.3 x10^3/uL (0.0-1.1) Eosinophils # (Auto) 0.1 x10^3/uL (0.0-0.7) Basophils # (Auto) 0.0 x10^3/uL (0.0-0.2) Glucose (Fingerstick) 148 mg/dL (70-99) Micro Microbiology 01/21/19 Blood Culture - Preliminary, Resulted NO GROWTH AFTER 4 DAYS 01/20/19 Anaerobic/Aerobic Culture, Resulted Pending 01/20/19 Anaerobic Culture Result 1 (ELIZA), Resulted Pending 01/20/19 Aerobic Culture - Final, Resulted 01/20/19 Aerobic Culture Result 1 (ELIZA) - Final, Resulted 01/20/19 Gram Stain - Final, Resulted 01/20/19 Gram Stain Result 1 (ELIZA) - Final, Resulted 01/20/19 Gram Stain Result 2 (ELIZA) - Final, Resulted Objective Assessment Status post right knee incision and drainage and revision of polyethylene (1 component) of total knee arthroplasty. 01/20 for possible PJI. culture neg so far Status post recent total knee arthroplasty 12/30/2018. Atrial fibrillation with rapid ventricular response. Anemia. Leukopenia. Diabetes mellitus. Acute kidney injury. RLE nonhealing wound around the munoz Plan Plan of Care daptomycin and Zosyn Social serivces today PICC today Heme eval Intraoperative cultures neg to date CBC in am Probiotics Local wound care per Ortho. D/w nursing ISABEL BUSTOS MD Jan 26, 2019 08:30
[2019-01-26] MEDS: SENNOSIDES/DOCUSATE 8.6/50MG TABLET. PO SCH (09:00)
--- NOTE | 2019-01-26 09:06 | PDOC ---
Provider Note Provider Note vss, no temp- vss, B12 ok- will dc FS as glucose /a1c good on no meds- omkar pending re anemia/wbc WERNER WANG MD Jan 26, 2019 09:06
[2019-01-26] MEDS: FERROUS SULFATE 325 MG TABLET. PO SCH (09:07)
[2019-01-26] MEDS: ASPIRIN ENTERIC COATED 81 MG TABLET.DR. PO SCH (09:07)
[2019-01-26] MEDS: LACTOBACILLUS RHAMNOSUS GG 1 CAPSULE. PO SCH ×2 (09:07→20:22)
[2019-01-26] MEDS: MULTIVITAMIN with MINERAL TABLET. PO SCH (09:07)
[2019-01-26] MEDS: CYANOCOBALAMIN (VITAMIN B-12) 1,000 MCG TABLET. PO SCH (09:07)
[2019-01-26] MEDS: LEVOTHYROXINE 125 MCG TABLET PO SCH (09:08)
[2019-01-26] MEDS: PANTOPRAZOLE 40 MG TABLET.DR. PO SCH (09:08)
[2019-01-26] MEDS: METOPROLOL TART IMMED RELEASE 25 MG TABLET. PO SCH ×2 (09:09→20:23)
[2019-01-26] MEDS: oxyCODONE/APAP 5/325 1 TAB TABLET PO PRN ×3 (09:46→22:23)
--- NOTE | 2019-01-26 10:23 | NUR ---
SS following up with discharge planning. SS received referral stating that pt will need IV Invanz and Daptomycin at discharge. Pt currently staying with family at [address] [place] [address], . SS currently running benefits for in home IV abx vs outpatient IV abx. SS will continue to follow for discharge planning.
--- NOTE | 2019-01-26 10:36 | NUR ---
PICC Pre-Insertion Note Allergies and reactions Tab INR 1.2 BUN 10 Cr 1.3 Platelets 194 Blood culture done yes blood culture results no growth x 4 days Order Verified yes Consent signed yes Previous PICC placement no Past Medical/Surgical history and current diagnosis reviewed yes Patient Medical /Surgical History Related to PICC line placement Arrhythmias Infectious Disease consult Special considerations for PICC line placement None PICC placement indication exterminator helper termite antibiotic usage, name of PICC Nurse Kesha Rodarte RN Addendum: 01/26/19 at 1114 by YULISA RODARTE RN Amended: Links added.
[2019-01-26 11:00] VITALS: BP 118/71
--- NOTE | 2019-01-26 11:04 | NUR ---
PICC Insertion Note Procedure: Following complete explanation of the PICC procedure including the indications, risks, and potential complications, informed consent was obtained. The possibility for infection was discussed along with signs, symptoms, and prevention. All the questions were answered. Written and verbal patient education was provided. Hand hygiene performed. Standardized central line checklist was utilized. The patient was placed in the supine position, the arm was prepped with chlorhexidine and patient draped with maximum sterile barrier. 2 mL 1% lidocaine was infiltrated into the skin to provide local anesthesia. A thorough assessment of right upper extremity completed. Using real-time ultrasound guidance and standardized micro puncture set, the basilic vein was punctured and a peel away sheath was placed using the modified Seldinger technique. A tip location device was used to ensure adequate catheter placement. The catheter was secured using a securement device and an antimicrobial patch was applied directly on the insertion site followed by a transparent dressing. All ports withdraw blood and flush without resistance. Patient tolerated the procedure without apparent complication(s). Single Lumen Power PICC placement successful and uncomplicated. Placement verified by EKG tip confirmation system and/or chest x-ray. Tip located in the mid SVC. Complications: none Catheter trimmed at 37cm with 1cm visible at insertion site.
--- NOTE | 2019-01-26 11:54 | RAD ---
PORTABLE CHEST 1V Clinical indications: Post PICC line placement. COMPARISON: December 08, 2018. Findings: A right upper extremity PICC line has been placed and tip is seen within the mid superior vena cava above the level of the right atrium. There is an increase in interstitium bilaterally which may indicate mild interstitial pulmonary edema. There is cephalization of pulmonary flow. Small right-sided pleural effusion is now evident. Skin fold projects over the upper right lateral chest. No pneumothorax is seen otherwise. The heart size is enlarged but stable. Mediastinum is unchanged. IMPRESSION: Placement of PICC line tip is seen within the mid superior vena cava. Mild CHF. Electronically signed by: Kolton Lentz MD (01/26/2019 11:51 AM) [id number]
[2019-01-26] MEDS: DAPTOmycin (GENERIC) IVPB 480 MG in IV NORMAL SALINE 50ML 50 ML IV SCH (13:46)
--- NOTE | 2019-01-26 14:05 | NUR ---
SS following up with discharge planning. SS received notification that inpatient IV abx would cost $689/week for in home services. SS met with with pt's family and discussed. Pt's family requesting outpatient IV infusions at this time and requested either [facility] or [facility]. SS contacted [facility], ; fax [phone], and discussed. [facility] to contact SS to verify insurance is in network. SS will continue to follow for discharge planning.
[2019-01-26 15:00] VITALS: BP 127/70
--- NOTE | 2019-01-26 17:18 | NUR ---
Wound Care: Wound care consult for R lower leg stasis ulcer and R heel DTI. Wound both cleansed with wound wash, R heel covered with foam dressing, R lower leg covered with hydrocolloid. R knee with surgical has terri dressing, incision not assessed at this time. No other wound noted upon skin assessment, wound care will f/u on 01/27 for possible wound vac placement to R knee surgical incision, awaiting on surgeon's orders.
[2019-01-26 19:48] VITALS: BP 132/69
[2019-01-26 20:08] LABS: ANA INTERP Negative (.)
[2019-01-26 22:27] VITALS: BP 140/81
--- NOTE | 2019-01-27 02:17 | CONS ---
DATE OF CONSULTATION: 01/26/2019 MEDICAL ONCOLOGY CONSULTATION REQUESTING PHYSICIAN: Dr. Sarabjit Darden. REASON FOR CONSULTATION: Leukopenia. HISTORY OF PRESENT ILLNESS: The patient is a 74-year-old gentleman who has a history of chronic leukopenia. Review of the old records indicates that his WBC count on 12/02/2013 was 3.7, it was normal on 10/10/2014 at 4.5. He was again dropped to 3.4 on 01/07/2019. 3.7 on 12/08/2018, improved to 6.1 on 01/21/2019 and dropped again to 3.4 on 03/29/2018. I was asked to see the patient to comment further on his chronic leukopenia. His CBC on 12/08/2018 revealed a WBC of 3.7 with a hemoglobin of 13, hematocrit 37.5, MCV 108 and a platelet count of 163,000. He underwent right total knee arthroplasty with subpatellar resurfacing on 12/30/[address] Alvin Cochran. He underwent right knee irrigation and debridement and revision of polyethylene component of the total knee replacement on 01/20/2019. He was admitted to [facility] on 01/20/2019 for possible right knee infection and Infectious Disease was consulted and he was started on antibiotics. PAST MEDICAL HISTORY: Diabetes, GERD, hypertension, hypothyroidism, pancreatitis. PAST SURGICAL HISTORY: Hernia repair, total knee replacement. FAMILY HISTORY: Negative for primary hematologic disorders. SOCIAL HISTORY: He quit smoking in 1986. REVIEW OF SYSTEMS: A 12-point review of system was performed. Pertinent positives are mentioned in the history of present illness. Rest of the system review is negative. PHYSICAL EXAMINATION: GENERAL APPEARANCE: The patient is a 74-year-old gentleman who is in no acute cardiorespiratory distress. VITAL SIGNS: Blood pressure 118/71, temperature 98.8. HEENT: Atraumatic, normocephalic. EYES: No icterus. NECK: Supple. CHEST: Bilaterally symmetrical. HEART: S1, S2 normal. ABDOMEN: Soft, nontender. CENTRAL NERVOUS SYSTEM: No focal deficits. LYMPHATICS: No lymphadenopathy. SKIN: No rashes. PSYCHOLOGIC: Mood and affect are appropriate. MUSCULOSKELETAL: He has dressing and drain in the right knee from recent procedure. LABORATORY DATA: On 01/26/2019, WBC 3.4, hemoglobin 8.5, platelet count 194. His hemoglobin prior to surgery was normal. His reticulocyte count is also increased at 8.6 on 01/26/2019. IMPRESSION AND PLAN: 1. Leukopenia, chronic. He has had low WBC count on and off since 2013. However, his hemoglobin and platelet counts were normal in 11/2018. Hemoglobin dropped after surgery for the right knee. It is unlikely that he has a primary bone marrow disorder as his preoperative CBC revealed isolated mild leukopenia and normal hemoglobin and platelet counts. His MCV was elevated; however, his vitamin B12 level was normal at 609 on 01/23/2019. He does have elevated TSH at 4.218 on 01/21/2019 which could be contributing to elevated MCV. I do not suspect a primary bone marrow disorder. The current leukopenia could be worse due to ongoing infection. I will continue to monitor as outpatient and if he does not have reasonable recovery or if he has any other signs of bone marrow disorders then I will proceed with a bone marrow biopsy. I discussed in detail with the patient and he understands and agrees with the plan. 2. Anemia. This is related to surgery as his preoperative hemoglobin was normal. 3. Elevated MCV. His thyroid levels revealed elevated TSH and hypothyroidism can contribute to elevated MCV. B12 level is normal. 4. Right knee infection. Continue management per Infectious Disease. He underwent right knee arthroplasty on 12/30/2018 and right knee irrigation and debridement on 01/20/2019. AUNG CUELLAR MD DR: LENNY/candie JOB#: [id number] / [id number] ANANDA
[2019-01-27 02:54] VITALS: BP 127/75
[2019-01-27] MEDS: PIPERACILLIN/TAZOBACTAM 3.375 GM in IV NORMAL SALINE 50ML 50 ML IV SCH (05:46)
[2019-01-27 07:00] VITALS: BP 128/71
[2019-01-27] MEDS: LACTOBACILLUS RHAMNOSUS GG 1 CAPSULE. PO SCH (07:46)
[2019-01-27] MEDS: PANTOPRAZOLE 40 MG TABLET.DR. PO SCH (07:46)
[2019-01-27] MEDS: LEVOTHYROXINE 125 MCG TABLET PO SCH (07:47)
[2019-01-27] MEDS: METOPROLOL TART IMMED RELEASE 25 MG TABLET. PO SCH ×2 (07:48→18:34)
[2019-01-27] MEDS: FERROUS SULFATE 325 MG TABLET. PO SCH (07:48)
[2019-01-27] MEDS: ASPIRIN ENTERIC COATED 81 MG TABLET.DR. PO SCH (07:48)
[2019-01-27] MEDS: SENNOSIDES/DOCUSATE 8.6/50MG TABLET. PO SCH (07:50)
[2019-01-27] MEDS: MULTIVITAMIN with MINERAL TABLET. PO SCH (08:37)
--- NOTE | 2019-01-27 08:51 | PDOC ---
Infectious Disease Note Subjective Subjective Occasional pain right leg - but getting around better Some loose stools, no more than usual Appetite good Denies F/C/N/V/SOA/Rash Vital Sign Vital Signs Vital Signs Date Time Temp Pulse Resp B/P (MAP) Pulse Ox O2 Delivery O2 Flow Rate FiO2 01/27/19 07:48 78 127/75 01/27/19 07:00 98.3 18 98 Room Air 98.3 Physical Exam PHYSICAL EXAM GENERAL: Propped up in bed, alert, NAD HEENT: Oral cavity clear NECK: Supple LUNGS: Clear bilaterally. No wheezing. HEART: S1, S2 ABDOMEN: Soft and nontender EXTREMITIES: Right lower extremity in dressing intact, not taken down. Trace edema and warmth- expected - better NEUROLOGIC: Alert and oriented x 3, grossly nonfocal. SKIN: Warm, dry. No generalized rash. PICC - RUE clean Labs Lab Laboratory Tests Test 01/26/19 11:19 01/26/19 16:51 Glucose (Fingerstick) 178 mg/dL (70-99) 140 mg/dL (70-99) Micro Microbiology 01/21/19 Blood Culture - Preliminary, Resulted NO GROWTH AFTER 4 DAYS 01/20/19 Anaerobic/Aerobic Culture, Resulted Pending 01/20/19 Anaerobic Culture Result 1 (ELIZA), Resulted Pending 01/20/19 Aerobic Culture - Final, Resulted 01/20/19 Aerobic Culture Result 1 (ELIZA) - Final, Resulted 01/20/19 Gram Stain - Final, Resulted 01/20/19 Gram Stain Result 1 (ELIZA) - Final, Resulted 01/20/19 Gram Stain Result 2 (ELIZA) - Final, Resulted Objective Assessment Status post right knee incision and drainage and revision of polyethylene (1 component) of total knee arthroplasty. 01/20 for possible PJI. culture neg so far Status post recent total knee arthroplasty 12/30/2018. Atrial fibrillation with rapid ventricular response. Anemia. Leukopenia. - Appreciate Dr. Sheehan input Diabetes mellitus. Acute kidney injury. RLE nonhealing wound around the munoz Plan Plan of Retirement on daptomycin and Invanz - dose now F/u ID office 02/05 at 3:00 counseling services director today Intraoperative cultures neg to date - faxed previous neg cult from Novemeb to office [facility] Local wound care per Ortho. D/w nursing ISABEL BUSTOS MD Jan 27, 2019 08:51
--- NOTE | 2019-01-27 09:12 | PDOC ---
Provider Note Provider Note no new findings, hapto ok, no hemolysis likely- ready for dc when id arranged WERNER WANG MD Jan 27, 2019 09:12
--- NOTE | 2019-01-27 09:19 | PDOC ---
PROGRESS NOTES Subjective Subjective HPI - f/u of Leukopenia ROS - no fever Objective Objective Vital Signs Date Time Temp Pulse Resp B/P (MAP) Pulse Ox O2 Delivery O2 Flow Rate FiO2 01/27/19 07:48 78 127/75 01/27/19 07:00 98.3 18 98 Room Air 98.3 01/22/19 08:00 1.5 Intake and Output 01/27/19 07:00 Intake Total 900 ml Output Total 1100 ml Balance -200 ml Intake Oral 900 ml Output Urine Total 1100 ml # Voids 2 # Bowel Movements 2 Physical Exam Heart: Normal S1, Normal S2 General: Alert, Oriented X3 Lungs: Clear to auscultation Neuro: Normal speech Psych/Mental Status: Mental status NL Assessment Assessment IMPRESSION AND PLAN: 1. Leukopenia, chronic. He has had low WBC count on and off since 2013. However, his hemoglobin and platelet counts were normal in 11/2018. Hemoglobin dropped after surgery for the right knee. It is unlikely that he has a primary bone marrow disorder as his preoperative CBC revealed isolated mild leukopenia and normal hemoglobin and platelet counts. His MCV was elevated; however, his vitamin B12 level was normal at 609 on 01/23/2019. He does have elevated TSH at 4.218 on 01/21/2019 which could be contributing to elevated MCV. I do not suspect a primary bone marrow disorder. The current leukopenia could be worse due to ongoing infection. I will continue to monitor as outpatient and if he does not have reasonable recovery or if he has any other signs of bone marrow disorders then I will proceed with a bone marrow biopsy. I discussed in detail with the patient and he understands and agrees with the plan. 2. Anemia. This is related to surgery as his preoperative hemoglobin was normal. No hemolysis, haptoglobin is 217, LDH 262 on 01/26/19. 3. Elevated MCV. His thyroid levels revealed elevated TSH and hypothyroidism can contribute to elevated MCV. B12 level is normal. 4. Right knee infection. Continue management per Infectious Disease. He underwent right knee arthroplasty on 12/30/2018 and right knee irrigation and debridement on 01/20/2019. Comment Review of Relevant I have reviewed the following items myriam (where applicable) has been applied. Labs Laboratory Tests Test 01/25/19 11:53 01/25/19 16:54 01/25/19 22:18 01/26/19 03:05 Glucose (Fingerstick) 199 mg/dL (70-99) 109 mg/dL (70-99) 144 mg/dL (70-99) Sodium Level 134 mmol/L (136-145) Potassium Level 5.0 mmol/L (3.5-5.1) Chloride Level 101 mmol/L (98-107) Carbon Dioxide Level 23 mmol/L (21-32) Anion Gap 10 (6-14) Blood Urea Nitrogen 10 mg/dL (8-26) Creatinine 1.3 mg/dL (0.7-1.3) Estimated GFR (Cockcroft-Gault) 54.0 Glucose Level 139 mg/dL (70-99) Calcium Level 8.2 mg/dL (8.5-10.1) Test 01/26/19 03:45 01/26/19 07:31 01/26/19 11:19 01/26/19 16:51 White Blood Count 3.4 x10^3/uL (4.0-11.0) Red Blood Count 2.35 x10^6/uL (4.30-5.70) Hemoglobin 8.5 g/dL (13.0-17.5) Hematocrit 25.4 % (39.0-53.0) Mean Corpuscular Volume 106 fL (79-100) Mean Corpuscular Hemoglobin 35 pg (25-35) Mean Corpuscular Hemoglobin Concent 33 g/dL (31-37) Red Cell Distribution Width 20.2 % (11.5-14.5) Platelet Count 194 x10^3/uL (140-400) Neutrophils (%) (Auto) 69 % (31-73) Lymphocytes (%) (Auto) 19 % (24-48) Monocytes (%) (Auto) 10 % (0-9) Eosinophils (%) (Auto) 2 % (0-3) Basophils (%) (Auto) 1 % (0-3) Neutrophils # (Auto) 2.3 x10^3/uL (1.8-7.7) Lymphocytes # (Auto) 0.6 x10^3/uL (1.0-4.8) Monocytes # (Auto) 0.3 x10^3/uL (0.0-1.1) Eosinophils # (Auto) 0.1 x10^3/uL (0.0-0.7) Basophils # (Auto) 0.0 x10^3/uL (0.0-0.2) Absolute Reticulocyte Count 0.203 x10^6/uL (0.020-0.120) Percent Reticulocyte Count 8.6 % (0.5-2.3) Immature Reticulocyte Fraction 0.64 (0.20-0.60) Haptoglobin 217 mg/dL (34-200) Lactate Dehydrogenase 262 U/L (85-227) Glucose (Fingerstick) 148 mg/dL (70-99) 178 mg/dL (70-99) 140 mg/dL (70-99) Laboratory Tests Test 01/26/19 11:19 01/26/19 16:51 Glucose (Fingerstick) 178 mg/dL (70-99) 140 mg/dL (70-99) Microbiology 01/21/19 Blood Culture - Final, Complete NO GROWTH AFTER 5 DAYS 01/20/19 Anaerobic/Aerobic Culture - Final, Complete 01/20/19 Anaerobic Culture Result 1 (ELIZA) - Final, Complete 01/20/19 Aerobic Culture - Final, Complete 01/20/19 Aerobic Culture Result 1 (ELIZA) - Final, Complete 01/20/19 Gram Stain - Final, Complete 01/20/19 Gram Stain Result 1 (ELIZA) - Final, Complete 01/20/19 Gram Stain Result 2 (ELIZA) - Final, Complete Medications Current Medications Morphine Sulfate 5 mg/Ketorolac Tromethamine 30 mg/Ropivacaine 60 ml/Epinephrine HCl 0.5 mg/Sodium Chloride 100 ml @ 100 mls/hr 1X ONCE INT ART ; Start 01/20/19 at 06:00; Stop 01/20/19 at 06:59; Status DC Ondansetron HCl (Zofran) 4 mg PRN Q6HRS PRN IV NAUSEA/VOMITING; Start 01/20/19 at 07:00; Stop 01/20/19 at 23:00; Status DC Fentanyl Citrate (Fentanyl 2ml Vial) 25 mcg PRN Q5MIN PRN IV MILD PAIN 1-3; Start 01/20/19 at 07:00; Stop 01/20/19 at 23:00; Status DC Fentanyl Citrate (Fentanyl 2ml Vial) 50 mcg PRN Q5MIN PRN IV MODERATE TO SEVERE PAIN; Start 01/20/19 at 07:00; Stop 01/20/19 at 23:00; Status DC Morphine Sulfate (Morphine Sulfate) 1 mg PRN Q10MIN PRN IV SEVERE PAIN 7-10; Start 01/20/19 at 07:00; Stop 01/20/19 at 23:00; Status DC Ringer's Solution 1,000 ml @ 30 mls/hr Q24H IV Last administered on 01/20/19at 14:50; Start 01/20/19 at 07:00; Stop 01/20/19 at 18:59; Status DC Hydromorphone HCl (Dilaudid) 0.5 mg PRN Q10MIN PRN IV SEV PAIN, Second choice; Start 01/20/19 at 07:00; Stop 01/20/19 at 23:00; Status DC Prochlorperazine Edisylate (Compazine) 5 mg PACU PRN PRN IV NAUSEA, MRX1; Start 01/20/19 at 07:00; Stop 01/20/19 at 23:00; Status DC Acetaminophen (Tylenol) 1,000 mg 1X PREOP PRN PO PRIOR TO PROCEDURE Last administered on 01/20/19at 14:49; Start 01/20/19 at 06:00; Stop 01/20/19 at 18:00; Status DC Cefazolin Sodium/ Dextrose 50 ml @ 100 mls/hr 1X PREOP PRN IV PRIOR TO PROCEDURE; Start 01/20/19 at 06:00; Stop 01/20/19 at 18:00; Status DC Tranexamic Acid 1000 mg/Sodium Chloride 60 ml @ 60 mls/hr 1X PERIOP ONCE INJ Last administered on 01/20/19at 18:05; Start 01/20/19 at 06:00; Stop 01/20/19 at 06:59; Status DC Tranexamic Acid 1000 mg/Sodium Chloride 60 ml @ 60 mls/hr 1X PERIOP ONCE INJ Last administered on 01/20/19at 19:07; Start 01/20/19 at 08:00; Stop 01/20/19 at 08:59; Status DC Tobramycin Sulfate (Tobramycin Powder) 1.2 gm STK-MED ONCE .ROUTE ; Start 01/20/19 at 14:53; Stop 01/20/19 at 14:53; Status DC Vancomycin HCl (Vancomycin) 2 gm STK-MED ONCE .ROUTE Last administered on 01/20/19at 18:25; Start 01/20/19 at 15:06; Stop 01/20/19 at 15:06; Status DC Insulin Human Lispro (HumaLOG VIAL for OP,RR ONLY) 0-10 units PRN Q1HR PRN SQ PER PROTOCOL; Start 01/20/19 at 16:30; Stop 01/20/19 at 23:00; Status DC Lidocaine HCl (Lidocaine Pf 2% Vial) 5 ml STK-MED ONCE .ROUTE ; Start 01/20/19 at 17:43; Stop 01/20/19 at 17:43; Status DC Propofol 20 ml @ As Directed STK-MED ONCE IV ; Start 01/20/19 at 17:43; Stop 01/20/19 at 17:43; Status DC Fentanyl Citrate (Fentanyl 2ml Vial) 100 mcg STK-MED ONCE .ROUTE ; Start 01/20/19 at 17:43; Stop 01/20/19 at 17:43; Status DC Rocuronium [place] (Zemuron) 50 mg STK-MED ONCE .ROUTE ; Start 01/20/19 at 17:43; Stop 01/20/19 at 17:43; Status DC Phenylephrine HCl (PHENYLEPHRINE in 0.9% NACL PF) 1 mg STK-MED ONCE IV ; Start 01/20/19 at 17:51; Stop 01/20/19 at 17:51; Status DC Ondansetron HCl (Zofran) 4 mg STK-MED ONCE .ROUTE ; Start 01/20/19 at 18:43; Stop 01/20/19 at 18:43; Status DC Glycopyrrolate (Robinul) 1 mg STK-MED ONCE .ROUTE ; Start 01/20/19 at 18:43; St op 01/20/19 at 18:44; Status DC Neostigmine Methylsulfate (Neostigmine Methylsulfate) 5 mg STK-MED ONCE .ROUTE ; Start 01/20/19 at 18:44; Stop 01/20/19 at 18:44; Status DC Sevoflurane (Ultane) 60 ml STK-MED ONCE IH ; Start 01/20/19 at 18:51; Stop 01/20/19 at 18:51; Status DC Sevoflurane (Ultane) 90 ml STK-MED ONCE IH ; Start 01/20/19 at 19:26; Stop 01/20/19 at 19:27; Status DC Labetalol HCl (Normodyne Iv Push) 10 mg 1X ONCE IVP Last administered on 01/20/19at 20:14; Start 01/20/19 at 20:15; Stop 01/20/19 at 20:17; Status DC Morphine Sulfate (Morphine Sulfate) 2 mg PRN Q1HR PRN IV PAIN MILD TO MOD; Start 01/20/19 at 20:15 Fentanyl Citrate (Fentanyl 2ml Vial) 25 mcg PRN Q1HR PRN IV PAIN, MILD TO MOD 2nd CHOICE Last administered on 01/21/19at 01:32; Start 01/20/19 at 20:15; Stop 01/26/19 at 09:05; Status DC Diphenhydramine HCl (Benadryl) 25 mg PRN Q6HRS PRN IV ITCHING; Start 01/20/19 at 20:15; Stop 01/26/19 at 09:05; Status DC Multivitamins (Thera M Plus) 1 tab DAILY PO Last administered on 01/27/19at 08:37; Start 01/21/19 at 09:00 Senna/Docusate Sodium (Senna Plus) 1 tab DAILY PO Last administered on 01/25/19at 08:17; Start 01/21/19 at 09:00 Sodium Chloride 1,000 ml @ 40 mls/hr Q24H IV ; Start 01/20/19 at 21:00; Stop 01/21/19 at 06:04; Status DC Vancomycin HCl 1 gm/Sodium Chloride 250 ml @ 250 mls/hr 1X ONCE IV Last administered on 01/21/19at 02:58; Start 01/21/19 at 03:00; Stop 01/21/19 at 03:59; Status DC Prochlorperazine Maleate (Compazine) 10 mg PRN Q4HRS PRN PO Nausea/vomiting, 2nd choice; Start 01/20/19 at 20:15 Metoclopramide HCl (Reglan Vial) 10 mg PRN Q4HRS PRN IV NAUSEA/VOMITING, 3rd CHOICE; Start 01/20/19 at 20:15 Magnesium Hydroxide (Milk Of Magnesia) 2,400 mg 1X PRN PRN PO CONSTIPATION; Start 01/21/19 at 06:00; Stop 01/22/19 at 05:59; Status DC Bisacodyl (Dulcolax Supp) 10 mg 1X PRN PRN RI CONSTIPATION; Start 01/21/19 at 16:00; Stop 01/22/19 at 15:59; Status DC Zolpidem Tartrate (Ambien) 5 mg PRN QHS PRN PO INSOMNIA, MAY REPEAT IN 1HR; Start 01/20/19 at 20:15; Stop 01/21/19 at 06:04; Status DC Calcium Carbonate/ Glycine (Tums) 500 mg PRN QID PRN PO INDIGESTION; Start 01/20/19 at 20:15 Morphine Sulfate (Morphine Sulfate) 4 mg PRN Q1HR PRN IV PAIN SEVERE; Start 01/20/19 at 20:15 Sodium Chloride (Normal Saline Flush) 10 ml QSHIFT PRN IV AFTER MEDS AND BLOOD DRAWS; Start 01/20/19 at 20:15 Fentanyl Citrate (Fentanyl 2ml Vial) 50 mcg PRN Q1HR PRN IV PAIN, SEVERE 2nd CHOICE; Start 01/20/19 at 20:15; Stop 01/26/19 at 09:05; Status DC Ondansetron HCl (Zofran) 4 mg Q6HRS IV ; Start 01/21/19 at 00:00; Stop 01/21/19 at 16:09; Status DC Ondansetron HCl (Zofran Odt) 4 mg Q6HRS PO ; Start 01/21/19 at 00:00; Stop at 16:09; Status DC Ondansetron HCl (Zofran) 4 mg PRN Q6HRS PRN IV Nausea/vomiting, 1st choice; Start 01/21/19 at 12:00 Ondansetron HCl (Zofran Odt) 4 mg PRN Q6HRS PRN PO Nausea/vomiting, 1st choice; Start 01/21/19 at 12:00 Insulin Human Lispro (HumaLOG) 0-7 UNITS TIDWMEALS SQ Last administered on 01/25/19at 12:27; Start 01/21/19 at 08:00; Stop 01/26/19 at 09:05; Status DC Dextrose (Dextrose 50%-Water Syringe) 12.5 gm PRN Q15MIN PRN IV SEE COMMENTS; Start 01/20/19 at 20:15 Oxycodone/ Acetaminophen (Percocet 5/325) 1 tab PRN Q4HRS PRN PO PAIN MILD TO MOD Last administered on 01/26/19 22:23; Start 01/20/19 at 20:15 Aspirin (Ecotrin) 81 mg DAILYWBKFT PO Last administered on 01/27/19 07:48; Start 01/21/19 at 08:00 Oxycodone/ Acetaminophen (Percocet 5/325) 2 tab PRN Q4HRS PRN PO PAIN SEVERE Last administered on 01/23/19 21:43; Start 01/20/19 at 20:30 Sodium Chloride 250 ml @ 250 mls/hr 1X ONCE IV Last administered on 01/20/19 23:39; Start 01/20/19 at 23:30; Stop 01/21/19 at 00:29; Status DC Sodium Chloride 1,000 ml @ 150 mls/hr Q6H40M IV Last administered on 01/21/19 07:30; Start 01/20/19 at 23:30; Stop 01/21/19 at 10:13; Status DC Dopamine HCl/ Dextrose 250 ml @ 6.055 mls/ hr CONT PRN IV SEE I/O RECORD Last administered on 01/21/19 00:10; Start 01/20/19 at 23:30; Stop 01/21/19 at 10:13; Status DC Digoxin (Lanoxin) 250 mcg 1X ONCE PO Last administered on 01/21/19 11:33; Start 01/21/19 at 10:15; Stop 01/21/19 at 10:18; Status DC Magnesium Sulfate/ Dextrose 100 ml @ 100 mls/hr 1X ONCE IV Last administered on 01/21/19 11:33; Start 01/21/19 at 11:00; Stop 01/21/19 at 11:59; Status DC Daptomycin 480 mg/ Sodium Chloride 50 ml @ 100 mls/hr Q24H IV Last administered on 01/26/19 13:46; Start 01/21/19 at 11:30 Piperacillin Sod/ Tazobactam Sod 3.375 gm/Sodium Chloride 50 ml @ 100 mls/hr Q6HRS IV Last administered on 01/27/19 05:46; Start 01/21/19 at 12:00 Cefazolin Sodium/ Dextrose (Ancef 2gm Premix) 2 gm STK-MED ONCE IV ; Start 01/20/19 at 07:00; Stop 01/21/19 at 12:24; Status DC Levothyroxine Sodium (Synthroid) 125 mcg DAILYAC PO Last administered on 01/27/19at 07:47; Start 01/22/19 at 07:30 Ferrous Sulfate (Feosol) 325 mg DAILY08 PO Last administered on 01/27/19at 07:48; Start 01/22/19 at 11:00 Losartan Potassium (Cozaar) 25 mg DAILY PO ; Start 01/22/19 at 10:00; Stop 01/22/19 at 11:27; Status DC Cyanocobalamin (Vitamin B-12) 500 mcg 3X/WEEK PO Last administered on 01/26/19at 09:07; Start 01/23/19 at 09:00 Pantoprazole Sodium (Protonix) 40 mg DAILYAC PO Last administered on 01/27/19at 07:46; Start 01/22/19 at 10:00 Metoprolol Tartrate (Lopressor) 25 mg BID PO Last administered on 01/27/19at 07:48; Start 01/22/19 at 11:15 Lactobacillus Rhamnosus (Culturelle) 1 cap BID PO Last administered on 01/27/19at 07:46; Start 01/24/19 at 21:00 Active Scripts Active Percocet 5-325 Mg Tablet (Oxycodone/Acetaminophen) 1 Each Tablet 1-2 Tab PO PRN Q4HRS PRN MDD 12 tabs 14 Days Take 1-2 tablets by mouth every 4 hours as needed for pain. Reported Celebrex (Celecoxib) 200 Mg Capsule 200 Mg PO DAILY 30 Days Losartan Potassium 50 Mg Tablet 25 Mg PO DAILY Ferrous Sulfate 325 Mg Tablet 325 Mg PO DAILY Xarelto (Rivaroxaban) 20 Mg Tablet 20 Mg PO DAILY Omeprazole 40 Mg Capsule.dr 40 Mg PO DAILY Melatonin 3 Mg Tablet 5 Mg PO QHS Vitamin D3 (Cholecalciferol (Vitamin D3)) 1,000 Unit Tablet 1,000 Unit PO DAILY Levothyroxine Sodium 125 Mcg Tablet 125 Mcg PO DAILYAC Vitamin B-12 (Cyanocobalamin (Vitamin B-12)) 500 Mcg Tablet 500 Mcg PO 3X/WEEK Men's Multi-Vitamin (Multivitamin) 1 Each Tablet 1 Each PO DAILY Hydrochlorothiazide Capsule (Hydrochlorothiazide) 12.5 Mg Capsule 1 Cap PO DAILY Vitals/I & O Vital Sign - Last 24 Hours 01/26/19 01/26/19 01/26/19 01/26/19 11:00 14:56 15:00 15:55 Temp 98.8 97.8 98.8 97.8 Pulse 69 70 Resp 20 20 18 B/P (MAP) 118/71 (87) 127/70 (89) Pulse Ox 100 98 100 98 O2 Delivery Room Air Room Air Room Air Room Air 01/26/19 01/26/19 01/26/19 01/26/19 19:48 19:50 20:23 22:23 Temp 98.0 98.0 Pulse 68 81 Resp 18 B/P (MAP) 132/69 (90) 132/69 Pulse Ox 98 O2 Delivery Room Air Room Air Room Air 01/26/19 01/26/19 01/27/19 01/27/19 22:27 23:23 02:54 07:00 Temp 98.2 98.3 98.2 98.3 Pulse 66 78 83 Resp 18 18 18 B/P (MAP) 140/81 (100) 127/75 (92) 128/71 (90) Pulse Ox 96 98 O2 Delivery Room Air Room Air Room Air Room Air 01/27/19 07:48 Pulse 78 B/P (MAP) 127/75 Intake and Output 01/26/19 01/26/19 01/27/19 15:00 23:00 07:00 Intake Total 100 ml 200 ml 600 ml Output Total 1100 ml Balance 100 ml 200 ml -500 ml AUNG CUELLAR MD Jan 27, 2019 09:19
[2019-01-27] MEDS ORDERED: ERTAPENEM 1 GM in IV NORMAL SALINE 50ML 50 ML IV ONE (10:30)
[2019-01-27 10:39] VITALS: BP 140/73
[2019-01-27 10:45] VITALS: BP 163/82
--- NOTE | 2019-01-27 10:56 | NUR ---
SS following up with discharge planning. Script for IV abx received. SS phoned and faxed script and referral to [facility], ; fax [phone], for outpatient set up. SS will continue to follow up with discharge planning.
[2019-01-27] MEDS: oxyCODONE/APAP 5/325 1 TAB TABLET PO PRN ×2 (11:11→17:38)
[2019-01-27] MEDS: DAPTOmycin (GENERIC) IVPB 480 MG in IV NORMAL SALINE 50ML 50 ML IV SCH (11:54)
--- NOTE | 2019-01-27 12:07 | NUR ---
SS following up with discharge planning. SS received notification from [facility], ; fax [phone], stating that pt has been accepted for IV infusions. Pt is to come to [facility], [address] [place] [address], through the entrance west of the ER. [facility]. [facility] scheduled pt for infusions at 1300 each day starting on 01/27/2019. Addendum: 01/27/19 at 1211 by OSITO CONNELL CORRECTION TO PREVIOUS NOTE: [facility] scheduled pt for infusions at 1300 each day starting on 01/28/2019.
[2019-01-27 15:00] VITALS: BP 107/59
--- NOTE | 2019-01-27 15:53 | NUR ---
Wound Care: Wound care consult for R lower leg stasis ulcer, right knee incision and R heel DTI. Wound both cleansed with wound wash, and pictured and measured for discharge. R heel covered with foam dressing, R lower leg covered with hydrocolloid. R knee surgical incision covered with Prevena plus dressing per Dr Cochran. No other wounds noted on fulls kin inspection. Pt may follow up in [facility] after discharge if needed.
[2019-01-27] MEDS ORDERED: OXYC1TAB15 PO (17:53)
[2019-01-27] MEDS ORDERED: METO25TA4 PO (17:53)
--- NOTE | 2019-01-27 18:19 | PDOC3 ---
Discharge Summary Visit Information Date of Admission: Jan 20, 2019 Date of Discharge: Jan 27, 2019 Brief Hospital Course Allergies Allergies Coded Allergies Type Severity Reaction Last Updated Verified zolpidem Adverse Reaction Mild Hallucination 01/21/19 Yes Vital Signs Vital Signs Date Time Temp Pulse Resp B/P (MAP) Pulse Ox O2 Delivery O2 Flow Rate FiO2 01/27/19 17:38 18 99 Room Air 01/27/19 15:00 98.9 77 107/59 (75) 98.9 01/27/19 08:00 1.5 Lab Results Laboratory Tests Test 01/25/19 22:18 01/26/19 03:05 01/26/19 03:45 01/26/19 07:31 Glucose (Fingerstick) 144 mg/dL (70-99) 148 mg/dL (70-99) Sodium Level 134 mmol/L (136-145) Potassium Level 5.0 mmol/L (3.5-5.1) Chloride Level 101 mmol/L (98-107) Carbon Dioxide Level 23 mmol/L (21-32) Anion Gap 10 (6-14) Blood Urea Nitrogen 10 mg/dL (8-26) Creatinine 1.3 mg/dL (0.7-1.3) Estimated GFR (Cockcroft-Gault) 54.0 Glucose Level 139 mg/dL (70-99) Calcium Level 8.2 mg/dL (8.5-10.1) White Blood Count 3.4 x10^3/uL (4.0-11.0) Red Blood Count 2.35 x10^6/uL (4.30-5.70) Hemoglobin 8.5 g/dL (13.0-17.5) Hematocrit 25.4 % (39.0-53.0) Mean Corpuscular Volume 106 fL (79-100) Mean Corpuscular Hemoglobin 35 pg (25-35) Mean Corpuscular Hemoglobin Concent 33 g/dL (31-37) Red Cell Distribution Width 20.2 % (11.5-14.5) Platelet Count 194 x10^3/uL (140-400) Neutrophils (%) (Auto) 69 % (31-73) Lymphocytes (%) (Auto) 19 % (24-48) Monocytes (%) (Auto) 10 % (0-9) Eosinophils (%) (Auto) 2 % (0-3) Basophils (%) (Auto) 1 % (0-3) Neutrophils # (Auto) 2.3 x10^3/uL (1.8-7.7) Lymphocytes # (Auto) 0.6 x10^3/uL (1.0-4.8) Monocytes # (Auto) 0.3 x10^3/uL (0.0-1.1) Eosinophils # (Auto) 0.1 x10^3/uL (0.0-0.7) Basophils # (Auto) 0.0 x10^3/uL (0.0-0.2) Absolute Reticulocyte Count 0.203 x10^6/uL (0.020-0.120) Percent Reticulocyte Count 8.6 % (0.5-2.3) Immature Reticulocyte Fraction 0.64 (0.20-0.60) Haptoglobin 217 mg/dL (34-200) Lactate Dehydrogenase 262 U/L (85-227) Test 01/26/19 11:19 01/26/19 16:51 Glucose (Fingerstick) 178 mg/dL (70-99) 140 mg/dL (70-99) Brief Hospital Course This 73-year-old man had total knee arthroplasty 12/30/2018. He was seen in the office for follow-up and Synovasure testing was done. He had persistent incisional drainage, and the Synovasure testing was suspicious for infection although cultures remained negative. I recommended irrigation and debridement and polyethylene exchange (1 stage revision) and treatment presumptively for infection. He agreed with that plan and was admitted to the hospital the day of surgery and underwent irrigation and debridement and polyethylene 1 stage revision. Intraoperative cultures were also taken. There was cloudy fluid in the knee but no definitive infection. Cultures remain negative. He has a history of atrial fibrillation, and required treatment of this during the hospital stay because he developed a rapid ventricular rate. He was placed on metoprolol. Dr. Hills was consulted and followed throughout the stay. Infectious disease had been consulted and followed throughout the hospital stay. Because the cultures remain negative, ID recommended to use Invanz and daptomycin. A PICC line was placed. Wandy dressing was replaced with a Prevena dressing. There was drainage for a few more days after surgery, but the Prevena is completely dry now. He is felt stable for discharge and will do outpatient antibiotics at [facility]. Discharge Information Condition at Discharge: Stable Follow Up: Weeks Disposition/Orders: D/C to Home Scheduled Celecoxib (Celebrex), 200 MG PO DAILY, (Reported) Cholecalciferol (Vitamin D3) (Vitamin D3), 1,000 UNIT PO DAILY, (Reported) Cyanocobalamin (Vitamin B-12) (Vitamin B-12), 500 MCG PO 3X/WEEK, (Reported) Ferrous Sulfate (Ferrous Sulfate), 325 MG PO DAILY, (Reported) Hydrochlorothiazide (Hydrochlorothiazide Capsule ), 1 CAP PO DAILY, (Repo rted) Levothyroxine Sodium (Levothyroxine Sodium), 125 MCG PO DAILYAC, (Reported) Losartan Potassium (Losartan Potassium), 25 MG PO DAILY, (Reported) Melatonin (Melatonin), 5 MG PO QHS, (Reported) Metoprolol Tartrate (Metoprolol Tartrate), 25 MG PO BID Multivitamin (Men's Multi-Vitamin), 1 EACH PO DAILY, (Reported) Omeprazole (Omeprazole), 40 MG PO DAILY, (Reported) Rivaroxaban (Xarelto), 20 MG PO DAILY, (Reported) Scheduled PRN Oxycodone/Apap 5-325 (Percocet 5-325 Mg Tablet ), 1-2 TAB PO PRN Q4HRS PRN for PAIN Patient Instructions Patient Instructions Weightbearing as tolerated with a walker. Home exercises for knee range of motion and hip strengthening. Leave the Prevena dressing intact and dry. Resume Xarelto. Follow-up at Dr. Anne's office 02/02/19 at 9:30 a.m. Outpatient antibiotics at [facility] as scheduled. LEENA ANNE MD Jan 27, 2019 18:19
[2019-01-27 18:34] VITALS: BP 107/59
== END 2019-01-27 18:59 | disposition home or self-care (01) | DRG 466 ==
LOC: OPSVCIP 13:21 → 2 SOUTH 21:25 → 2 NORTH 01-22 16:14
PROVIDERS: ADMIT Orthopaedic Surgery; ATTEND Orthopaedic Surgery
PROC: 0SRV0JZ Replacement of Right Knee Joint, Tibial Surface with Synthetic Substitute, Open Approach (ICD-10-PCS; 2019-01-20)
PROC: 02HV33Z Insertion of Infusion Device into Superior Vena Cava, Percutaneous Approach (ICD-10-PCS; 2019-01-20)
PROC: 0SPV0JZ Removal of Synthetic Substitute from Right Knee Joint, Tibial Surface, Open Approach (ICD-10-PCS; principal; 2019-01-20 15:00)
PROC: 30233N1 Transfusion of Nonautologous Red Blood Cells into Peripheral Vein, Percutaneous Approach (ICD-10-PCS; 2019-01-21)
DX: T84.53XA Infection and inflammatory reaction due to internal right knee prosthesis, initial encounter (principal); N17.0 Acute kidney failure with tubular necrosis; D62 Acute posthemorrhagic anemia; M00.9 Pyogenic arthritis, unspecified; Y83.8 Other surgical procedures as the cause of abnormal reaction of the patient, or of later complication, without mention of misadventure at the time of the procedure; E03.9 Hypothyroidism, unspecified; E11.9 Type 2 diabetes mellitus without complications; I95.9 Hypotension, unspecified; K21.9 Gastro-esophageal reflux disease without esophagitis; I10 Essential (primary) hypertension; I48.91 Unspecified atrial fibrillation; Z82.3 Family history of stroke; Z88.8 Allergy status to other drugs, medicaments and biological substances; Y92.89 Other specified places as the place of occurrence of the external cause; Z87.891 Personal history of nicotine dependence; Z90.49 Acquired absence of other specified parts of digestive tract
CPT/HCPCS: 36415; 36569; 71045; 73560; 80048; 80053; 82040; 82550; 82607; 82962; 83010; 83036; 83615; 83735; 84443; 85007; 85014; 85018; 85025; 85027; 85045; 85610; 85651; 85730; 86038; 86140; 86850; 86900; 86901; 86920; 87040; 87071; 87075; 87102; 87116; 93005; 93926; A7015; C1713; J0171; J0696; J0878; J1265; J1335; J1815; J1885; J2001; J2270; J2370; J2405; J2543; J2704; J2710; J2795; J3010; J3260; J3370; J3475; J3490; J7030; J7050; J7120; P9016; 97110; 97116; 97530; 97535; A4461; C1769; G0378

== ENCOUNTER → 2020-12-14 | Outpatient (CLI) | payer MEDICARE ==
[~2020-12-14] MED LIST changes: -ACETAMINOPHEN 500 MG TABLET PO PRN; -CYAN500T52 PO; +CYAN500T7 PO; -GLIM2TAB3 PO; +GLIM2TAB7 PO; -HYDROmorphone 2 MG/ML VIAL IV PRN; -IV RINGERS,LACTATED 1000ML 1,000 ML IV SCH; +MELA3TAB4 PO; -MELA3TAB56 PO; +METO25TA4 PO; -MORPHINE SULFATE 2 MG/ML VIAL. IV PRN; -MORPHINE SULFATE 5 MG, KETOROLAC 30MG VIAL 30 MG, ROPIVacaine 0.5% PF 60 ML, EPINEPHrin... INT ART ONE; -OMEP40CA45 PO; +OMEP40CA7 PO; -ONDANSETRON PF 4 MG/2 ML VIAL. IV PRN; -PROCHLORPERAZINE 10 MG/2 ML VIAL. IV PRN; -TRANEXAMIC ACID 1,000 MG in IV NS 50ML -- 1ST BAG INJ ONE; -TRANEXAMIC ACID 1,000 MG in IV NS 50ML -- 2ND BAG INJ ONE; -ceFAZolin 2GM PREMIX 2 GM/50 ML BAG IV ONE; -fentaNYL PF VIAL 100 MCG/2 ML VIAL IV PRN
--- NOTE | 2020-12-14 09:41 | RAD ---
INDICATION: Reason: lt leg pain/swelling / Spl. Instructions: / History: COMPARISON: None. TECHNIQUE: Grayscale, color and doppler ultrasound images were obtained of the left lower extremity v enous vasculature. LEFT: No thrombus identified in the common femoral vein, femoral vein, popliteal vein or visualized calf ve ins. IMPRESSION: * No thrombus identified in deep venous system of the left lower extremity. Electronically signed by: Lucien Hills MD (12/14/2020 9:39 AM) [id number]
== END ==
LOC: US 09:03
PROVIDERS: ATTEND Physician Assistant
DX: R22.43 Localized swelling, mass and lump, lower limb, bilateral
CPT/HCPCS: 93971